=== PATIENT | female | born 1960 | race Caucasian/White ===

== ENCOUNTER 2022-07-11 18:10 | Emergency (ER) | payer MEDICAID, SELFPAY ==
[2022-07-11 18:12] VITALS: BP 140/61; PULSE 83; RESP 20; TEMP 37.2; O2SAT 95; BMI 51.7
--- NOTE | 2022-07-11 18:46 | EX.ED.DYSGE1 ---
HPI History of Present Illness Chief Complaint: Abn Labs Narrative Narrative: 61-year-old female presenting with abnormal lab work. She states that she was told her potassium is high today. This was from a lab draw this morning. The nurse practitioner caring for her could not recheck her labs today because she is in a retirement. She does not know if the labs were hemolyzed or not. Patient has no symptoms at all. [facility] Medical History History of mental problems Tonsillectomy planned Home Medications acetaminophen 325 mg capsule 325 mg PO ONCE PRN Pain 05/29/22 [History Last Taken Unknown] cetirizine 5 mg tablet (Allergy Relief (cetirizine)) 5 mg PO DAILY PRN Allergy Symptoms 05/29/22 [History Last Taken Unknown] clotrimazole 1 % topical cream 1 applic topical BID 05/29/22 [History Last Taken Unknown] diclofenac sodium 1 % topical gel (Arthritis Pain (diclofenac)) 2 g topical ONCE 05/29/22 [History Last Taken Unknown] divalproex 125 mg tablet,delayed release 125 mg PO TID 05/29/22 [History Last Taken Unknown] doxepin 10 mg capsule 10 mg PO DAILY 05/29/22 [History Last Taken Unknown] ergocalciferol (vitamin D2) 50,000 unit tablet unit PO 05/29/22 [History Last Taken Unknown] famotidine 20 mg tablet 20 mg PO DAILY 05/29/22 [History Last Taken Unknown] flash glucose scanning reader (FreeStyle Jolie 2 [employer]ckenna) #1 ea 05/29/22 [Rx Last Taken Unknown] flash glucose sensor (FreeStyle Jolie 2 Sensor kit) #2 ea 05/29/22 [Rx Last Taken Unknown] gabapentin 300 mg capsule 300 mg PO DAILY 05/29/22 [History Last Taken Unknown] hydroxyzine HCl 25 mg tablet 25 mg PO TID PRN Anxiety 05/29/22 [History Last Taken Unknown] insulin glargine 100 unit/mL subcutaneous solution (Lantus U-100 Insulin) 60 unit (0.6 mL) subcut DAILY #54 mL 05/29/22 [Rx Last Taken Unknown] insulin lispro 100 unit/mL subcutaneous pen 20 unit (0.2 mL) subcut TID #54 mL 05/29/22 [Rx Last Taken Unknown] losartan 25 mg tablet 25 mg PO DAILY #90 tabs 05/29/22 [Rx Last Taken Unknown] olanzapine 20 mg tablet 20 mg PO DAILY 05/29/22 [History Last Taken Unknown] omeprazole 20 mg capsule,delayed release 20 mg PO DAILY 05/29/22 [History Last Taken Unknown] sertraline 25 mg tablet 25 mg PO DAILY 05/29/22 [History Last Taken Unknown] simvastatin 20 mg tablet 20 mg PO DAILY 05/29/22 [History Last Taken Unknown] ziprasidone HCl 80 mg capsule 80 mg PO BID 05/29/22 [History Last Taken Unknown] Allergy/AdvReac Type Severity Reaction Status Date / Time codeine Allergy Hives Verified 07/11/22 18:18 prochlorperazine edisylate Allergy Swelling Verified 07/11/22 18:18 [From Compazine] prochlorperazine maleate Allergy Swelling Verified 07/11/22 18:18 [From Compazine] Family History Other Alcohol abuse Cancer Heart disease Hypertension Mental disorder Social History Smoking Status: Never smoker alcohol intake: never substance use type: does not use what type of physical activity do you participate in: none ROS ROS ED Constitutional Constitutional ED: Denies chills, fever(s) or sweats Eyes Eyes: Denies blurry vision or change in vision ENT ENT ED: Denies ear pain or sore throat Cardiovascular Cardiovascular: Denies chest pain, palpitations or racing heartbeat Respiratory/Chest Respiratory/Chest: Denies cough, dyspnea or sputum Gastrointestinal Gastrointestinal: Denies abdominal pain, constipation, diarrhea, nausea or vomiting Genitourinary Genitourinary ED: Denies dysuria, hematuria or urinary frequency Musculoskeletal Musculoskeletal: Denies arthralgias, myalgias or neck pain Integumentary Denies abscess, Abrasions or rash Neurologic Neurologic: Denies headache(s), paresthesias or weakness Psychiatric Psychiatric: Denies anxiety, depression, suicidal ideation or suicidal thoughts Endocrine Endocrinology: Denies polydipsia or polyuria EXAM Physical Exam Const Vital Signs: 07/11/22 18:12 07/11/22 18:18 07/11/22 20:44 Temperature 98.9 F Temperature Source Temporal Pulse Rate 83 92 Respiratory Rate 20 H 22 H Respiratory Effort Normal Non-Labored Respiratory Pattern Normal Blood Pressure 140/61 H 125/112 H Blood Pressure Mean 87 116 Pulse Ox 95 92 Oxygen Delivery Method Room Air Room Air 07/11/22 21:32 Temperature Temperature Source Pulse Rate 82 Respiratory Rate 21 H Respiratory Effort Respiratory Pattern Blood Pressure 128/71 H Blood Pressure Mean 90 Pulse Ox 92 Oxygen Delivery Method Room Air Positive well nourished General Appearance ED: NAD; Negative for pallor HEENT Reports moist mucous membranes Eyes PERRL and EOMs intact bilaterally Neck no lymphadenopathy Resp normal respiratory effort and clear to auscultation bilaterally Auscultation: Negative for rales, rhonchi or wheezes Cardio regular rate and regular rhythm GI normal to inspection, nondistended, normoactive bowel sounds Back/Spine no CVA tenderness Neuro oriented x3 and CN's II-XII intact bilaterally Sensorium / Orientation: alert Motor Exam: strength 5/5 throughout Psych mental status grossly normal Skin no rashes or lesions noted, no wounds and skin turgor normal General Skin Exam: Negative for jaundice or pallor MDM MDM MDM Narrative Medical decision making narrative: Patient presenting asymptomatic stating that her potassium is elevated. She cannot tell me if her labs are hemolyzed. I obtained another BMP to see if her calcium was actually high and came back at 7.0. Creatinine is slightly elevated at 1.68. Her outpatient blood work shows that her creatinine today was 1.6 as well. Previously a couple of months ago was 1.3. Patient is able to relate to me that she does have high potassium at times. She does not know why they keep having elevated potassiums. Patient was given a liter of IV fluids. Patient CBC to check for hemoglobin, hematocrit, differential. Will obtain a urinalysis as well. Urinalysis showed no evidence of infection. Patient's potassium is elevated at 7.0 however there is reported moderate hemolysis. We will recheck her potassium after IV fluids patient had a lab draw again which was moderately hemolyzed and her potassium was still elevated. A straight stick was used and blood was sent to lab and her potassium is now normal at 4.8. Given this I will discharge her back to her facility. Impression 1. Hyperkalemia?resolved 2. Dehydration Lab Data Labs: Laboratory Results - last 24 hr 02/08/0107/11/22 07/11/22 18:30 19:50 19:50 WBC 8.4 RBC 4.52 Hgb 11.5 L Hct 36.7 L MCV 81.2 MCH 25.4 L MCHC 31.3 L RDW Std Deviation 45.3 H RDW Coeff of Doris 15.5 H Plt Count 175 MPV 9.4 Immature Gran % (Auto) 0.400 Neut % (Auto) 42.1 L Lymph % (Auto) 47.7 H [place] % (Auto) 7.0 Eos % (Auto) 2.3 Baso % (Auto) 0.5 Absolute Neuts (auto) 3.5 Absolute Lymphs (auto) 3.99 Nucleated RBC % 0 Sodium 135 L Potassium 7.0 H* Chloride 102 Carbon Dioxide 28.0 Anion Gap 5 BUN 32 H Creatinine 1.68 H Estim Creat Clear Calc 66.14 Est GFR (MDRD) Af Amer 40 L Est GFR (MDRD) Non-Af 33 L BUN/Creatinine Ratio 19.0 Glucose 185 H Calcium 8.9 Urine Color Urine Clarity Urine pH Ur Specific [place] Urine Protein Urine Glucose (UA) Urine Ketones Urine Occult Blood Urine Nitrite Urine Bilirubin Urine Urobilinogen Ur Leukocyte Esterase Urine RBC Urine WBC Ur Squamous Epith Cells Urine Bacteria Urine Mucus Valproic Acid 17 L 07/11/22 07/11/22 07/11/22 20:15 22:35 23:05 WBC RBC Hgb Hct MCV MCH MCHC RDW Std Deviation RDW Coeff of Doris Plt Count MPV Immature Gran % (Auto) Neut % (Auto) Lymph % (Auto) [place] % (Auto) Eos % (Auto) Baso % (Auto) Absolute Neuts (auto) Absolute Lymphs (auto) Nucleated RBC % Sodium Potassium 7.1 H* 4.8 Chloride Carbon Dioxide Anion Gap BUN Creatinine Estim Creat Clear Calc Est GFR (MDRD) Af Amer Est GFR (MDRD) Non-Af BUN/Creatinine Ratio Glucose Calcium Urine Color Yellow Urine Clarity Clear Urine pH 6.5 Ur Specific [place] 1.010 Urine Protein 500 H Urine Glucose (UA) Normal Urine Ketones Negative Urine Occult Blood 10 H Urine Nitrite Negative Urine Bilirubin Negative Urine Urobilinogen Normal Ur Leukocyte Esterase 25 H Urine RBC 0-5 SEEN Urine WBC 0-5 SEEN Ur Squamous Epith Cells 0-5 SEEN Urine Bacteria 1+ Urine Mucus 0 SEEN Valproic Acid Discharge Plan Triage Chief Complaint: Abn Labs ED Provider: Reginald Puentes Dx/Rx/DC Orders Prescriptions: No Action simvastatin 20 mg tablet 20 mg PO DAILY gabapentin 300 mg capsule 300 mg PO DAILY clotrimazole 1 % cream 1 applic topical BID diclofenac sodium [Arthritis Pain (diclofenac)] 1 % gel 2 g topical ONCE Rx Instructions: apply to single elbow, wrist or hand; for hand includes palm/fingers/back of hand cetirizine [Allergy Relief (cetirizine)] 5 mg tablet 5 mg PO DAILY PRN (Reason: Allergy Symptoms) acetaminophen 325 mg capsule 325 mg PO ONCE PRN (Reason: Pain) famotidine 20 mg tablet 20 mg PO DAILY hydroxyzine HCl 25 mg tablet 25 mg PO TID PRN (Reason: Anxiety) divalproex 125 mg tablet,delayed release (DR/EC) 125 mg PO TID olanzapine 20 mg tablet 20 mg PO DAILY Rx Instructions: 1/2 tab once a day PO sertraline 25 mg tablet 25 mg PO DAILY ergocalciferol (vitamin D2) 50,000 unit tablet PO ziprasidone HCl 80 mg capsule 80 mg PO BID Rx Instructions: give with food (meal/snack) doxepin 10 mg capsule 10 mg PO DAILY omeprazole 20 mg capsule,delayed release(DR/EC) 20 mg PO DAILY (DME) FreeStyle Jolie 2 Mckenna Misc See Rx Instructions .Route Qty: 1 0RF Rx Instructions: As directed (DME) FreeStyle Jolie 2 Sensor Kit See Rx Instructions .Route Qty: 2 5RF Rx Instructions: 1 sensor q 14 days losartan 25 mg tablet 25 mg PO DAILY Qty: 90 1RF insulin lispro 100 unit/mL insulin pen 20 unit subcut TID Qty: 54 1RF insulin glargine [Lantus U-100 Insulin] 100 unit/mL solution 60 unit subcut DAILY Qty: 54 1RF Primary Care Provider: Yas Valdivia,Out of Referrals: Yas Valdivia,Out of [Primary Care Provider] -
[2022-07-11 19:34] LABS: Anion Gap 5 (5-15); BUN 32 mg/dL (7-18); Calcium,Total 8.9 mg/dL (8.5-10.1); Chloride 102 mmol/L (98-107); Creatinine, Serum 1.68 mg/dL (0.55-1.02); EST Glomerular Filtration Rate 33 mL/min (>60); Est Glom Filt Rate - Afr Amer 40 mL/min (>60); Estimated Creatinine Clearance 66.14 ml/min; Glucose 185 mg/dL (74-106); Sodium Level 135 mmol/L (136-145)
[2022-07-11] MEDS: 0.9% Normal Saline 1,000 ML 999 ML IV (19:46)
[2022-07-11 20:01] LABS: Absolute Lymphocyte Count 3.99 X10^3/uL (0.83-4.51); Absolute Neutrophil Count 3.5 X10^3/uL (2.0-7.7); Basophil# 0.04 X10^3/uL; Basophil% 0.5 % (0-1); Eosinophil# 0.19 X10^3/uL; Eosinophils% 2.3 % (0-5); Hematocrit 36.7 % (37-47); Hemoglobin 11.5 g/dL (12.0-15.0); Lymphocyte # 3.99 X10^3/ul (0.83-4.51); Lymphocyte % 47.7 % (19-41); Mean Corp Hgb Conc 31.3 g/dL (32-36); Mean Corpuscular Hgb 25.4 pg (27.0-32.0); Mean Corpuscular Volume 81.2 fL (81-99); Mean Platelet Vol. 9.4 fl (6.2-12.0); Monocyte# 0.59 X10^3/uL; NRBC Flagged by Analyzer 0 % (0-5); Neutrophil # 3.53 X10^3/uL (2.7-7.7); Neutrophil % 42.1 % (47-70); Platelet Count 175 K/mm3 (150-450); RBC Distribution Width CV 15.5 % (11.6-14.6); RBC Distribution Width SD 45.3 fl (35.1-43.9); Red Blood Count 4.52 M/mm3 (4.2-5.4); White Blood Count 8.4 K/mm3 (4.4-11.0)
[2022-07-11 20:19] LABS: Mucous, Urine 0 SEEN /hpf (<or=2+)
[2022-07-11 20:20] LABS: Color, Urine Yellow (Yellow); Glucose, Dipstick Normal (Normal); Ketone-Dipstick Negative (Negative); Leukocyte Esterase-Dipstick 25 /ul (Negative); Nitrite-Dipstick Negative (Negative); Occult Blood-Urine 10 /ul (Negative); Protein-Dipstick 500 mg/dl (Negative); Urine Bilirubin Dipstick Negative (Negative); Urine Clarity Clear (Clear); Urine Urobilinogen Normal (Normal); Urine pH 6.5 (5.0 - 8.0)
[2022-07-11 20:26] LABS: Bacteria 1+ /hpf (None Seen); Red Blood Cells-Urine 0-5 SEEN /hpf (0-5); Squamous Epithelial Cells - UA 0-5 SEEN /hpf (5-10); White Blood Cells 0-5 SEEN /hpf (0-5)
[2022-07-11 20:44] VITALS: BP 125/112; PULSE 92; RESP 22; O2SAT 92
--- NOTE | 2022-07-11 20:46 | ED.RN ---
PER DR. HOLLAND, WAIT TO DRAW REPEAT POTASSIUM UNTIL AFTER LITER OF FLUIDS.
[2022-07-11 21:19] LABS: Valproic Acid (Depakene) Level 17 ug/mL (50-100)
[2022-07-11 21:32] VITALS: BP 128/71; PULSE 82; RESP 21; O2SAT 92
[2022-07-11 22:58] LABS: Potassium 7.1 mmol/L (3.5-5.1)
[2022-07-11 23:30] LABS: Potassium 4.8 mmol/L (3.5-5.1)
[2022-07-11 23:58] VITALS: BP 132/64; PULSE 75; RESP 18; O2SAT 97
== END 2022-07-12 00:56 | disposition skilled nursing facility (03) ==
LOC: ED 18:39
PROVIDERS: Emergency Provider Student in an Organized Health Care Education/Training Program; Visit Provider Student in an Organized Health Care Education/Training Program
DX: R79.0 Abnormal level of blood mineral (principal); E86.0 Dehydration
CPT/HCPCS: 80048; 80164; 81001; 84132; 85025; 96360; 96361; 99285; J7030; A4216

== ENCOUNTER → 2022-08-21 | Outpatient (CLI) | payer MEDICAID, SELFPAY ==
--- NOTE | 2022-08-21 13:18 | US_ITS ---
STUDY: RENAL ULTRASOUND - COMPLETE REASON FOR EXAM: Female, 62 years old. Elevated BUN/creatinine TECHNIQUE: Ultrasound evaluation of the kidneys was performed with real-time and static quispe-scale imaging. Study limited due to having being scanned in her wheelchair COMPARISON: None. FINDINGS: Kidneys demonstrate echogenic cortices suggesting underlying medical renal disease RIGHT KIDNEY: Normal location of the right kidney, which is normal in size. The right kidney measures 9.9 x 5.1 x 5.7 cm. There is a normal cortex of the right kidney. The renal cortex measures 1.6 cm. There is no right renal mass or cyst. There are no right renal calculi. There is no right hydronephrosis. DISTAL RIGHT URETER: There is non-visualization of the distal right ureter. There is no demonstrated right ureterovesical junction calculus. There is a visualized right ureteral jet. LEFT KIDNEY: Normal location of the left kidney, which is normal in size. The left kidney measures 9.8 x 4.2 x 5.5 cm. There is a normal cortex of the left kidney. The renal cortex measures 1.7 cm. There is no left renal mass or cyst. There are no left renal calculi. There is no left hydronephrosis. DISTAL LEFT URETER: There is non-visualization of the distal left ureter. There is no demonstrated left ureterovesical junction calculus. There is a visualized left ureteral jet. AORTA: There is no elongation or tortuosity of the abdominal aorta. I.V.C.: The IVC is patent. BLADDER: The bladder is incompletely distended and incompletely visualized. Incidental note is made of splenomegaly measuring 14 cm. US/Kidney and Bladder IMPRESSION: Echogenic kidneys suggesting underlying medical renal disease. No obstructive uropathy or suspicious solid renal lesion. Nonspecific splenomegaly Electronically Signed: Orlin Mills MD at 14:52 EDT ,
== END | disposition home or self-care (01) ==
LOC: US 13:16
PROVIDERS: PCP Internal Medicine; Referring Provider Urology; Visit Provider Urology
DX: N99.0 Postprocedural (acute) (chronic) kidney failure (principal)
CPT/HCPCS: 76770

== ENCOUNTER 2022-08-28 11:07 | Inpatient (IN) | payer MEDICAID, SELFPAY ==
[2022-08-28] VITALS (16 sets, daily range): BP systolic 118–147; BP diastolic 77–102; PULSE 90–102; RESP 12–31; TEMP 36.7–37; O2SAT 84–98; BMI 54.0; BMI 52.8
--- NOTE | 2022-08-28 12:07 | ED.VIS.DYS ---
HPI History of Present Illness Chief Complaint: Shortness of Breath Narrative Narrative: 62-year-old female here with shortness of breath. The patient states there is associated bilateral lower extremity swelling. States ongoing for 2 days. She further states she has orthopnea. Denies cough fever chills. Denies any bleeding diathesis. Denies any chest pain. The patient denies recent surgery in the last 4 weeks or immobilization in the last 3 days, denies previous diagnosis of DVT or PE, hemoptysis, unilateral leg swelling or malignancy with treatment the last 6 months. No estrogen use noted. [facility] Medical History History of mental problems Tonsillectomy planned Home Medications divalproex 125 mg tablet,delayed release 125 mg PO BID 05/29/22 [History Last Taken 08/27/22] doxepin 10 mg capsule 10 mg PO DAILY SLEEP 05/29/22 [History Last Taken 08/27/22] flash glucose scanning reader ([employer] Jolie [employer]) #1 ea 05/29/22 [Rx Last Taken Unknown] flash glucose sensor (FreeStyle Jolie 2 Sensor kit) #2 ea 05/29/22 [Rx Last Taken Unknown] gabapentin 300 mg capsule 300 mg PO DAILY 05/29/22 [History Last Taken 08/27/22] hydroxyzine HCl 25 mg tablet 25 mg PO TID PRN Anxiety 05/29/22 [History Last Taken 08/27/22] omeprazole 20 mg capsule,delayed release 20 mg PO DAILY GERD 05/29/22 [History Last Taken 08/27/22] sertraline 25 mg tablet 25 mg PO DAILY MOOD 05/29/22 [History Last Taken 08/27/22] simvastatin 20 mg tablet 20 mg PO QHS CHOLESTEROL 05/29/22 [History Last Taken 08/27/22] ziprasidone HCl 80 mg capsule 80 mg PO QHS MOOD 05/29/22 [History Last Taken 08/27/22] amlodipine 5 mg tablet 5 mg PO DAILY #30 tabs 07/15/22 [Rx Last Taken 08/27/22] acetaminophen 325 mg tablet 650 mg PO BID PRN PAIN AND FEVER 08/28/22 [History Last Taken 08/27/22] ergocalciferol (vitamin D2) 1,250 mcg (50,000 unit) capsule ([place]) 1,250 mcg PO MOTH SUPPLEMENT 08/28/22 [History Last Taken 08/19/22] insulin glargine 100 unit/mL subcutaneous solution (Lantus U-100 Insulin) 60 unit subcut QHS DM 08/28/22 [History Last Taken 08/27/22] insulin lispro 100 unit/mL subcutaneous pen 20 unit subcut TID DM 08/28/22 [History Last Taken 08/27/22] mirabegron 50 mg tablet,extended release 24 hr (Myrbetriq) 100 mg PO DAILY BLADDER 08/28/22 [History Last Taken 08/27/22] nystatin 100,000 unit/gram topical powder (Nystop) 1 applic topical BID SKIN 08/28/22 [History Last Taken Unknown] olanzapine 10 mg tablet 10 mg PO QHS MOOD 08/28/22 [History Last Taken 08/27/22] sertraline 100 mg tablet 100 mg PO QHS MOOD 08/28/22 [History Last Taken 08/27/22] Allergy/AdvReac Type Severity Reaction Status Date / Time codeine Allergy Hives Verified 07/11/22 18:18 prochlorperazine edisylate Allergy Swelling Verified 07/11/22 18:18 [From Compazine] prochlorperazine maleate Allergy Swelling Verified 07/11/22 18:18 [From Compazine] Family History Other Alcohol abuse Cancer Heart disease Hypertension Mental disorder Social History Smoking Status: Never smoker alcohol intake: never substance use type: does not use what type of physical activity do you participate in: none ROS ROS ED ROS Narrative Constitutional: Denies fever HEENT: Denies sore throat Neck: Denies neck pain Cardiovascular: Denies chest pain, syncope Respiratory: Endorses shortness of breath GI: Denies nausea vomiting or abdominal pain : Denies changes in urinary habits Musculoskeletal: Denies muscle or joint pain, endorses bilateral lower extremity edema Neurologic: Denies numbness weakness or loss of sensation Skin denies rash EXAM Physical Exam Narrative Exam Narrative: Nursing triage notes reviewed, Vital signs reviewed Constitutional: please see mdm HENT: MMM Eyes: Pupils equal round and reactive to light, Extraocular muscles intact Neck: No stridor, no JVD, full neck ROM Lungs: Increased work of breathing, prolonged expiratory phase, accessory muscle use, conversational dyspnea, bilateral wheezing/crackles noted worse on the left Heart: Regular rate and rhythm, No murmurs, No rubs and No gallops, 2+ distal pulses (radial, femoral, posterior tibial) in all extremities Abdomen: Soft, there is no tenderness, rigidity, rebound or guarding, no obvious peritoneal signs, no palpable pulsatile abdominal masses, no auscultated abdominal bruit : No CVAT Extremities: 2+ pitting edema Neuro: No focal neurological deficits, cranial nerves II through XII intact, 5/5 strength in all extremities. Intact sensation to light touch in all extremities, 2+ reflexes bilateral patella dens. Normal gait. No ataxia. Skin: No rash or lesions noted Const Vital Signs: 08/28/22 11:09 08/28/22 11:12 08/28/22 11:13 Temperature 98.6 F Temperature Source Oral Pulse Rate 102 H Respiratory Rate 26 H Respiratory Effort Short of Breath Labored Respiratory Depth Deep Respiratory Pattern Tachypnea Blood Pressure 138/77 H Blood Pressure Mean 97 Pulse Ox 84 94 Oxygen Delivery Method Room Air Nasal Cannula Nasal Cannula Oxygen Flow Rate (L/min) 3 3 Fraction of Inspired Oxygen (FIO2) 08/28/22 13:24 08/28/22 13:28 08/28/22 13:51 Temperature 98.4 F Temperature Source Oral Pulse Rate 101 H 100 99 Respiratory Rate 19 H 24 H 24 H Respiratory Effort Respiratory Depth Respiratory Pattern Normal Blood Pressure 147/102 H Blood Pressure Mean 117 Pulse Ox 92 92 Oxygen Delivery Method Nasal Cannula Oxygen Flow Rate (L/min) 3 Fraction of Inspired Oxygen (FIO2) 40 08/28/22 15:06 Temperature 98.5 F Temperature Source Temporal Pulse Rate 99 Respiratory Rate 21 H Respiratory Effort Respiratory Depth Respiratory Pattern Blood Pressure 136/87 H Blood Pressure Mean 103 Pulse Ox 94 Oxygen Delivery Method Bi-pap Oxygen Flow Rate (L/min) Fraction of Inspired Oxygen (FIO2) 40 MDM MDM MDM Narrative Medical decision making narrative: Chief Complaint: Shortness of breath External records reviewed: I considered the following differential diagnosis: ACS, arrhythmia, anemia, heart failure, pneumonia, COVID, COPD exacerbation Patient was initially hypoxic, tachycardic with increased work of breathing, conversational dyspnea, belly breathing/muscle use. Lungs were tight with prolonged expiratory phase concerning for obstructive lung disease however the patient did not have history of COPD or asthma did have a remote history of smoking. She was treated empirically for COPD with steroids and DuoNeb breathing treatments. Chest x-ray by my read shows evidence of pneumonia, BNP consistent with mild heart failure. There is no evidence of STEMI on EKG however the patient's troponin was elevated concern for myocardial ischemia. Patient's BNP is also elevated concerning for heart failure may be related to increased ventricular stretch given initial tachycardia and hypoxia. Patient was started on BiPAP given increased work of breathing, tachypnea and new onset hypoxia. She improved symptomatically. Patient was started on azithromycin and ceftriaxone for antimicrobial effect. Report given to Dr. Faustin who accepted the patient's care Factors affecting care: Obesity, hypertension, hyperlipidemia, type 2 diabetes, CKD Social determinants of health: Poor health literacy, History obtained from others: EMS Shared decision making: I will have a discussion with the patient and or visitors regarding risk/benefits of further testing or admission. They will be made aware of of the risk/benefits inherent in this decision they will be given the opportunity to voice understanding. Consults: Internal medicine History & Record Review Discussion w/independent historian: EMS personnel Lab Data Attestation: I reviewed the patient's lab results. Lab results narrative: Troponin elevated consistent myocardial schema BNP elevated consistent with heart failure BMP with baseline CKD, no significant electrolyte abnormalities or anion gap to suggest endorgan hypoperfusion CBC with no leukocytosis, mild anemia, no thrombocytopenia Labs: Laboratory Results - last 24 hr 08/28/22 08/28/22 08/28/22 11:40 11:40 14:40 WBC 9.6 RBC 4.07 L Hgb 10.5 L Hct 33.7 L MCV 82.8 MCH 25.8 L MCHC 31.2 L RDW Std Deviation 49.6 H RDW Coeff of Doris 16.6 H Plt Count 198 MPV 8.7 Sodium 138 Potassium 4.7 Chloride 102 Carbon Dioxide 29.0 Anion Gap 7 BUN 33 H Creatinine 1.66 H Estim Creat Clear Calc 69.07 Est GFR (MDRD) Af Amer 41 L Est GFR (MDRD) Non-Af 34 L BUN/Creatinine Ratio 19.9 Glucose 172 H Calcium 9.1 Troponin I High Sens 76 H B-Natriuretic Peptide 515.2 H ABG Data ABG results: ABG 08/28/22 13:39 Specimen Type LEROY VBG pH 7.36 VBG pO2 31 VBG HCO3 32 H VBG Total CO2 34 H VBG O2 Sat (Calc) 56 VBG Base Excess 7 H POC Mix VBG pCO2 Pt Tmp 57.7 H Radiography Chest X-Ray - ED: Read by ED Physician Diagnostic Testing: Clinical Impression(s) from Imaging Studies Chest X-Ray 08/28/22 13:50 IMPRESSION: Left basilar pulmonary infiltrate. Follow-up is recommended. Electronically Signed: Man Kauffman MD at 14:23 EDT , Chest x-ray with evidence of left-sided pneumonia EKG Initial EKG: Attestation: I personally reviewed and interpreted this EKG as follows: Comments: EKG with normal sinus rhythm, normal axis, normal intervals, no STEMI Critical Care Time Critical Care Time: Yes Critical care time (excluding procedures): 30-74 minutes Discharge Plan Triage Chief Complaint: Shortness of Breath ED Provider: Jamal Gayle Dx/Rx/DC Orders Clinical Impression: Pneumonia, Acute hypoxemic respiratory failure, Acute non-ST elevation myocardial infarction (NSTEMI) Prescriptions: No Action simvastatin 20 mg tablet 20 mg PO QHS gabapentin 300 mg capsule 300 mg PO DAILY hydroxyzine HCl 25 mg tablet 25 mg PO TID PRN (Reason: Anxiety) divalproex 125 mg tablet,delayed release (DR/EC) 125 mg PO BID sertraline 25 mg tablet 25 mg PO DAILY ziprasidone HCl 80 mg capsule 80 mg PO QHS Rx Instructions: give with food (meal/snack) doxepin 10 mg capsule 10 mg PO DAILY omeprazole 20 mg capsule,delayed release(DR/EC) 20 mg PO DAILY (DME) FreeStyle Jolie [employer] Misc See Rx Instructions .Route Qty: 1 0RF Rx Instructions: As directed (DME) FreeStyle Jolie 2 Sensor Kit See Rx Instructions .Route Qty: 2 5RF Rx Instructions: 1 sensor q 14 days nystatin [Nystop] 100,000 unit/gram Powder 1 applic TOPICAL BID acetaminophen 325 mg tablet 650 mg PO BID PRN (Reason: PAIN AND FEVER) sertraline 100 mg tablet 100 mg PO QHS olanzapine 10 mg tablet 10 mg PO QHS ergocalciferol (vitamin D2) [Drisdol] 1,250 mcg (50,000 unit) Capsule 1,250 mcg PO MOTH Myrbetriq 50 mg Tablet Extended Release 24 Hr 100 mg PO DAILY insulin glargine [Lantus U-100 Insulin] 100 unit/mL solution 60 unit subcut QHS insulin lispro 100 unit/mL insulin pen 20 unit subcut TID amlodipine 5 mg tablet 5 mg PO DAILY Qty: 30 6RF Primary Care Provider: CURTIS LEVI Referrals: Nini Rubi MD [Non-Staff] - Disposition Disposition: Acute Care Hospital [facility]
[2022-08-28] MEDS: Ipratropium/Albuterol Sulfate 3 ML AMPUL.NEB INHALATION (13:27)
[2022-08-28] MEDS: MethylPREDNISolone 125 MG/2 ML Vial IV (13:31)
[2022-08-28 13:45] LABS: Blood Gas Specimen Type VEN; VBG BASE EXCESS 7 mmol/L (-1.0-3.5); VBG Bicarbonate 32 mmol/L (22-26); VBG PO2 31 mmHg (25-40); VBG SO2 56 % (50-70); VBG TCO2 34 mmol/L (23-33); VBG pCO2 57.7 mmHg (41-51); VBG pH 7.36 (7.32-7.42)
--- NOTE | 2022-08-28 13:50 | RAD_ITS ---
STUDY: X-RAY CHEST REASON FOR EXAM: Female, 62 years old. SOB TECHNIQUE: Single AP portable view of the chest. COMPARISON: None. FINDINGS: EKG electrodes are seen. Infiltrate is seen at the left lung base. Follow-up is recommended. There is no demonstrated pleural abnormality. There is borderline cardiomegaly. Normal mediastinum and belem. Normal visualized pulmonary arteries. Normal visualized aortic arch and descending thoracic aorta. Normal visualized thoracic spine. Normal visualized ribs, clavicles, and shoulders. There is no demonstrated abnormality of the visualized soft tissue structures of the upper abdomen. RAD/Chest 1 View (Portable) IMPRESSION: Left basilar pulmonary infiltrate. Follow-up is recommended. Electronically Signed: Man Kauffman MD at 14:23 EDT ,
[2022-08-28 13:51] LABS: BNP,B-Type NATRIURETIC PEPTIDE 515.2 pg/mL (0-100)
[2022-08-28 13:54] LABS: Anion Gap 7 (5-15); BUN 33 mg/dL (7-18); BUN/Creat Ratio 19.9 RATIO (10-20); Calcium,Total 9.1 mg/dL (8.5-10.1); Chloride 102 mmol/L (98-107); Creatinine, Serum 1.66 mg/dL (0.55-1.02); EST Glomerular Filtration Rate 34 mL/min (>60); Est Glom Filt Rate - Afr Amer 41 mL/min (>60); Estimated Creatinine Clearance 69.07 ml/min; Glucose 172 mg/dL (74-106); Potassium 4.7 mmol/L (3.5-5.1); Sodium Level 138 mmol/L (136-145); Troponin-I HS 76 pg/mL (3.0-54.0)
[2022-08-28 14:55] LABS: Hematocrit 33.7 % (37-47); Hemoglobin 10.5 g/dL (12.0-15.0); Mean Corp Hgb Conc 31.2 g/dL (32-36); Mean Corpuscular Hgb 25.8 pg (27.0-32.0); Mean Corpuscular Volume 82.8 fL (81-99); Mean Platelet Vol. 8.7 fl (6.2-12.0); Platelet Count 198 K/mm3 (150-450); RBC Distribution Width CV 16.6 % (11.6-14.6); RBC Distribution Width SD 49.6 fl (35.1-43.9); Red Blood Count 4.07 M/mm3 (4.2-5.4); White Blood Count 9.6 K/mm3 (4.4-11.0)
[2022-08-28] MEDS: Ceftriaxone 1 GM/50 ML BAG IV (15:04)
--- NOTE | 2022-08-28 15:50 | NURSING ---
PER [facility] RECORDS PT HAS NOT RECEIVED FLU VACCINE. CURRENTLY UNABL TO CONSENT/REFUSE VACC, PLEASE REASSESS WHEN SHE IS ABLE TO RESPOND TO QUESTIONS.
--- NOTE | 2022-08-28 16:20 | NURSING ---
PER DR MARIE, PLEASE ADMINISTER THE 20MG OF LASIX ORDERED BY DR LEGGETT
--- NOTE | 2022-08-28 16:37 | CPS ---
Switched pt to [facility] at this time. RN aware
[2022-08-28] MEDS: 0.9% Saline Lock 10 ML Syringe IV (16:54)
[2022-08-28] MEDS: Furosemide 20 MG/2 ML VIAL IV (16:55)
--- NOTE | 2022-08-28 18:29 | PCM.HP.STD ---
HPI - General General Date of Admission: 08/28/22 HPI Narrative KELSI JENSEN, is a 62 F who presents to the hospital with shortness of breath. During my exam she was fairly somnolent and would not wake up long enough to answer my questions. I could not reach family so most of the history was obtained from chart review and discussing the case with the emergency room physician. She has noticed lower extremity edema and on admission was hypoxic to 84% on room air. Initially she was started on nasal cannula but she did have significant increased work of breathing with retractions and tachypnea so she was transitioned to BiPAP in the ER. VBG was unremarkable. Chest x-ray shows left lower lobe opacity could be infiltrates could be edema, she does not have a leukocytosis and she is not febrile. Lab work was fairly unremarkable, her creatinine is at baseline based on the previous records we have, she did have a slightly elevated BNP but no history of heart failure or COPD. [facility]LY [facility] Medical History History of mental problems Tonsillectomy planned Home Medications divalproex 125 mg tablet,delayed release 125 mg PO BID 05/29/22 [History Last Taken 08/27/22] doxepin 10 mg capsule 10 mg PO DAILY SLEEP 05/29/22 [History Last Taken 08/27/22] flash glucose scanning reader (FreeStyle Jolie 2 [place]) #1 ea 05/29/22 [Rx Last Taken Unknown] flash glucose sensor (FreeStyle Jolie 2 Sensor kit) #2 ea 05/29/22 [Rx Last Taken Unknown] gabapentin 300 mg capsule 300 mg PO DAILY 05/29/22 [History Last Taken 08/27/22] hydroxyzine HCl 25 mg tablet 25 mg PO TID PRN Anxiety 05/29/22 [History Last Taken 08/27/22] omeprazole 20 mg capsule,delayed release 20 mg PO DAILY GERD 05/29/22 [History Last Taken 08/27/22] sertraline 25 mg tablet 25 mg PO DAILY MOOD 05/29/22 [History Last Taken 08/27/22] simvastatin 20 mg tablet 20 mg PO QHS CHOLESTEROL 05/29/22 [History Last Taken 08/27/22] ziprasidone HCl 80 mg capsule 80 mg PO QHS MOOD 05/29/22 [History Last Taken 08/27/22] amlodipine 5 mg tablet 5 mg PO DAILY #30 tabs 07/15/22 [Rx Last Taken 08/27/22] acetaminophen 325 mg tablet 650 mg PO BID PRN PAIN AND FEVER 08/28/22 [History Last Taken 08/27/22] ergocalciferol (vitamin D2) 1,250 mcg (50,000 unit) capsule (Drisdol) 1,250 mcg PO MOTH SUPPLEMENT 08/28/22 [History Last Taken 08/19/22] insulin glargine 100 unit/mL subcutaneous solution (Lantus U-100 Insulin) 60 unit subcut QHS DM 08/28/22 [History Last Taken 08/27/22] insulin lispro 100 unit/mL subcutaneous pen 20 unit subcut TID DM 08/28/22 [History Last Taken 08/27/22] mirabegron 50 mg tablet,extended release 24 hr (Myrbetriq) 100 mg PO DAILY BLADDER 08/28/22 [History Last Taken 08/27/22] nystatin 100,000 unit/gram topical powder (Nystop) 1 applic topical BID SKIN 08/28/22 [History Last Taken Unknown] olanzapine 10 mg tablet 10 mg PO QHS MOOD 08/28/22 [History Last Taken 08/27/22] sertraline 100 mg tablet 100 mg PO QHS MOOD 08/28/22 [History Last Taken 08/27/22] Allergy/AdvReac Type Severity Reaction Status Date / Time codeine Allergy Hives Verified 07/11/22 18:18 prochlorperazine edisylate Allergy Swelling Verified 07/11/22 18:18 [From Compazine] prochlorperazine maleate Allergy Swelling Verified 07/11/22 18:18 [From Compazine] Family History Other Alcohol abuse Cancer Heart disease Hypertension Mental disorder Surgical History unable to obtain unable to obtain Social History Smoking Status: Never smoker alcohol intake: never substance use type: does not use what type of physical activity do you participate in: none ROS Review of Systems ROS Unobtainable: due to mental status Vital Signs Vital Signs Vital Signs: 08/28/22 11:09 08/28/22 11:12 08/28/22 11:13 Temperature 98.6 F Temperature Source Oral Pulse Rate 102 H Respiratory Rate 26 H Respiratory Effort Short of Breath Labored Respiratory Depth Deep Respiratory Pattern Tachypnea Blood Pressure 138/77 H Blood Pressure Mean 97 Blood Pressure Source Blood Pressure Position Blood Pressure Location Pulse Ox 84 94 Oxygen Delivery Method Room Air Nasal Cannula Nasal Cannula Oxygen Flow Rate (L/min) 3 3 Fraction of Inspired Oxygen (FIO2) 08/28/22 13:24 08/28/22 13:28 08/28/22 13:51 Temperature 98.4 F Temperature Source Oral Pulse Rate 101 H 100 99 Respiratory Rate 19 H 24 H 24 H Respiratory Effort Respiratory Depth Respiratory Pattern Normal Blood Pressure 147/102 H Blood Pressure Mean 117 Blood Pressure Source Blood Pressure Position Blood Pressure Location Pulse Ox 92 92 Oxygen Delivery Method Nasal Cannula Oxygen Flow Rate (L/min) 3 Fraction of Inspired Oxygen (FIO2) 40 08/28/22 15:06 08/28/22 16:16 08/28/22 16:47 Temperature 98.5 F 98.5 F 98.2 F Temperature Source Temporal Temporal Temporal Pulse Rate 99 99 102 H Respiratory Rate 21 H 21 H 18 Respiratory Effort Respiratory Depth Respiratory Pattern Blood Pressure 136/87 H 136/87 H 118/82 H Blood Pressure Mean 103 103 94 Blood Pressure Source Monitor Blood Pressure Position Semi-Fowlers Blood Pressure Location Right Arm Pulse Ox 94 95 95 Oxygen Delivery Method Bi-pap Bi-pap Bi-pap Oxygen Flow Rate (L/min) Fraction of Inspired Oxygen (FIO2) 40 60 80 08/28/22 15:30 08/28/22 16:31 08/28/22 16:30 Temperature Temperature Source Pulse Rate 90 95 Respiratory Rate 24 H 26 H Respiratory Effort Respiratory Depth Respiratory Pattern Normal Tachypnea Blood Pressure Blood Pressure Mean Blood Pressure Source Blood Pressure Position Blood Pressure Location Pulse Ox 95 96 96 Oxygen Delivery Method Bi-pap Oxygen Flow Rate (L/min) Fraction of Inspired Oxygen (FIO2) 60 80 80 08/28/22 16:47 08/28/22 16:45 Temperature 98.2 F Temperature Source Temporal Pulse Rate 102 H Respiratory Rate 18 Respiratory Effort Respiratory Depth Respiratory Pattern Tachypnea Blood Pressure 118/82 H Blood Pressure Mean 94 Blood Pressure Source Blood Pressure Position Blood Pressure Location Pulse Ox 95 Oxygen Delivery Method Bi-pap Bi-pap Oxygen Flow Rate (L/min) Fraction of Inspired Oxygen (FIO2) Weight Weight: 261 lb 7.492 oz Body Mass Index (BMI) 52.8 Physical Exam Narrative General: Somnolent, mild distress HEENT: Atraumatic, PERRLA, EOMI, Normocephalic Oral: Moist Mucosa Neck: Supple, No JVD Lungs: Diminished, Normal air movement, No rhonchi, No wheeze, No rales, tachypneic, retractions Cardiovascular: Tachycardic, Regular Rhythm, Normal S1, Normal S2, No murmurs Abdomen: Soft, Non Tender, Non-Distended, No Hepato-splenomegaly Extremities: Edema, Capillary Refill Less than 3 Seconds Skin: No rashes, No breakdown Musculoskeletal: No Tenderness to Palpation of Joints or Extremities Neurological: Does not follow commands Psych/Mental Status: Flat Results Lab / Micro Data Result Diagrams: 08/28/22 14:40 08/28/22 11:40 Labs: Laboratory Results - last 24 hr 08/28/22 11:40: Sodium 138, Potassium 4.7, Chloride 102, Carbon Dioxide 29.0, Anion Gap 7, BUN 33 H, Creatinine 1.66 H, Estim Creat Clear Calc 69.07, Est GFR (MDRD) Af Amer 41 L, Est GFR (MDRD) Non-Af 34 L, BUN/Creatinine Ratio 19.9, Glucose 172 H, Calcium 9.1, Troponin I High Sens 76 H 08/28/22 11:40: B-Natriuretic Peptide 515.2 H 08/28/22 14:40: WBC 9.6, RBC 4.07 L, Hgb 10.5 L, Hct 33.7 L, MCV 82.8, MCH 25.8 L, MCHC 31.2 L, RDW Std Deviation 49.6 H, RDW Coeff of Doris 16.6 H, Plt Count 198, MPV 8.7 Micro: Microbiology 08/28/22 13:44 Nasal Secretion SARS-CoV-2 Antigen (Rapid) - Final ABG Data ABG results: ABG 08/28/22 13:39 Specimen Type LEROY VBG pH 7.36 VBG pO2 31 VBG HCO3 32 H VBG Total CO2 34 H VBG O2 Sat (Calc) 56 VBG Base Excess 7 H POC Mix VBG pCO2 Pt Tmp 57.7 H Radiology Impression Chest X-Ray 08/28/22 13:50 IMPRESSION: Left basilar pulmonary infiltrate. Follow-up is recommended. Electronically Signed: Man Kauffman MD at 14:23 EDT , Assessment & Plan Assessment/Plan (1) Acute hypoxemic respiratory failure: PLAN: Plan 1. Acute hypoxic respiratory failure secondary to CHF exacerbation unknown type with metabolic versus toxic encephalopathy ? VBG does not show any significant acidosis or alkalosis or CO2 retention ? With the edema and the orthopnea described to the ED physician as well as a slightly elevated troponin it is reasonable to consider CHF, she received 20 of Lasix this evening in the ER can repeat in the morning ? We will obtain an echo ? I did review the chest x-ray independently and I agree with the radiologist ? Given the lack of a leukocytosis or fever we will hold off on any further antibiotics to allow her to declare herself. She did receive Rocephin and azithromycin in the ER ? No history of COPD, and I do not hear any wheezing on exam therefore we will hold off on any steroids at this time ? She does take multiple medications that could be causing her altered mental status, will hold her olanzapine and her ziprasidone and obtain an ammonia ? We will obtain serial troponins 2. HTN/HLD/elevated troponin ? Unable to ascertain whether not she was having any chest pain ? EKG is unremarkable ? We will obtain serial troponins and an echo for further characterization ? Continue with her Norvasc and simvastatin 3. DM2/CKD 3B ? This is uncontrolled last A1c in 2021 was 9.7 ? We will continue with her long-acting insulin ? Accu-Cheks ACHS with sliding scale insulin ? We will make adjustments as necessary ? Chart review discussed that she has microalbuminemia we will start low-dose lisinopril ? Renal functions at baseline 4. Anxiety/depression versus other mood disorder ? Can continue with her Depakote and her doctor as well as her gabapentin and as needed hydroxyzine but will hold her olanzapine and ziprasidone DVT: Lovenox 76 minutes was spent in direct patient care as well as chart review and collaboration Charges/Coding Visit Charges Inpatient E&M: 96199 Init Hosp L3
--- NOTE | 2022-08-28 19:29 | ECHOCS_ITS ---
Reason For Study: CHF Procedure This was a 2D Doppler, Color Flow transthoracic echocardiogram. The study was technically difficult. Contrast injection was performed. Exam performed portable in patient room. Left Ventricle Normal LV size. The left ventricular ejection fraction is 40 %. Unable to assess diastolic function based on available data. Right Ventricle The right ventricle is not well visualized. Atria The left atrium is not well visualized. The right atrium is not well visualized. Mitral Valve Mitral valve not well visualized. Tricuspid Valve The tricuspid valve is not well visualized. Aortic Valve The aortic valve is not well visualized. Pulmonic Valve The pulmonic valve is not well visualized. Great Vessels The aortic root is not well visualized. Pericardium/Pleural No pericardial effusion. Medication Diluted definity 2ml given slow IV push to enhance endocardial definition. MMode/2D Measurements & Calculations Ao root diam: 2.4 cm LAV(MOD-bp): 74.6 ml LVAd ap4: 34.6 cm2 LAV(MOD-bp) Indexed: 36.6 ml/m2 LVLd ap4: 8.3 cm LAV(MOD-sp2): 41.7 ml EDV(MOD-sp4): 120.8 ml LAV(MOD-sp4): 125.3 ml EDV(sp4-el): 122.5 ml LVAs ap4: 23.7 cm2 LVLs ap4: 7.0 cm ESV(MOD-sp4): 66.1 ml ESV(sp4-el): 68.3 ml EF(MOD-sp4): 45.3 % EF(sp4-el): 44.2 % SV(MOD-sp4): 54.7 ml SV(sp4-el): 54.2 ml LA A4 area: 31.1 cm2 LA dimension(2D): 4.7 cm Doppler Measurements & Calculations MV E max hussein: 119.3 cm/sec Lat Peak E' Hussein: 11.0 cm/sec Med Peak E' Hussein: 7.9 cm/sec MV A max hussein: 91.5 cm/sec E/E' lat: 10.9 E/E' med: 15.0 MV E/A: 1.3 Ao V2 max: 67.3 cm/sec LV V1 max: 61.9 cm/sec Ao max P.8 mmHg LV V1 max P.5 mmHg ECHO/Echo Complete W/ Contrast Interpretation Summary The study was technically difficult. The left ventricular ejection fraction is 40-45 %. Ordering Physician: Tyler Faustin Referring Physician: LOY PCP Performed By: Jennifer Gaspar RCS
[2022-08-28 19:48] LABS: Hemoglobin A1c 7.8 % (3.8-5.6)
[2022-08-28 20:06] LABS: Allen Test Positive; Base Excess 2 mmol/L (-2 to +2); Bicarbonate 26.9 mmol/L (22-26); Blood Gas Specimen Type ART; FI02 70; O2 Delivery Device BiPAP; PEEP 12; PO2 121 mmHG (75-100); RR 14; SITE R Radial; SO2 99 % (95-99); Total Carbon Dioxide 28 mmol/L; Vt 450; pCO2 43.7 mmHg (35-45)
[2022-08-28 22:15] LABS: Troponin-I HS 55 pg/mL (3.0-54.0)
[2022-08-29] VITALS (12 sets, daily range): BP systolic 106–126; BP diastolic 69–90; PULSE 90–98; RESP 16–20; TEMP 36.6–37; O2SAT 94–97; BMI 52.6
[2022-08-29] MEDS: Insulin Lispro 100 UNIT/ML INSULN.PEN SC ×5 (00:02→21:20)
[2022-08-29] MEDS: Divalproex Sodium 125 MG Tablet PO ×3 (00:02→21:20)
[2022-08-29] MEDS: Insulin Glargine-YFGN 100 UNIT/ML Pen 60 UNIT SC ×2 (00:03→21:21)
[2022-08-29] MEDS: Atorvastatin Calcium 10 MG Tablet PO ×2 (00:04→21:21)
[2022-08-29] MEDS: Sertraline 100 MG Tablet PO ×2 (00:13→21:21)
[2022-08-29 00:41] LABS: Bedside Glucose 248 mg/dL (74-106)
[2022-08-29 03:59] LABS: Absolute Lymphocyte Count 0.91 X10^3/uL (0.83-4.51); Absolute Neutrophil Count 4.8 X10^3/uL (2.0-7.7); Hemoglobin 9.8 g/dL (12.0-15.0); Lymphocyte # 0.91 X10^3/ul (0.83-4.51); Lymphocyte % 15.5 % (19-41); Mean Corp Hgb Conc 30.6 g/dL (32-36); Mean Corpuscular Hgb 25.5 pg (27.0-32.0); Mean Corpuscular Volume 83.1 fL (81-99); Monocyte# 0.18 X10^3/uL; Monocyte% 3.1 % (0-10); NRBC Flagged by Analyzer 0 % (0-5); Neutrophil # 4.75 X10^3/uL (2.7-7.7); Neutrophil % 80.7 % (47-70); Platelet Count 175 K/mm3 (150-450); RBC Distribution Width CV 16.6 % (11.6-14.6); RBC Distribution Width SD 49.6 fl (35.1-43.9); Red Blood Count 3.85 M/mm3 (4.2-5.4); White Blood Count 5.9 K/mm3 (4.4-11.0)
[2022-08-29] MEDS: Acetaminophen 325 MG Tablet 650 MG PO ×2 (04:12→21:19)
[2022-08-29 04:20] LABS: Troponin-I HS 44 pg/mL (3.0-54.0)
[2022-08-29 04:28] LABS: ALB/GLOB Ratio 0.6 RATIO (0.9-2.4); AST(SGOT) 23 U/L (15-37); Alanine Aminotransfer ALT/SGPT 25 U/L (13-56); Albumin, Serum 2.5 g/dL (3.2-5.0); Alkaline Phosphatase 65 U/L (45-117); Anion Gap 11 (5-15); BUN 41 mg/dL (7-18); Calcium,Total 8.7 mg/dL (8.5-10.1); Chloride 101 mmol/L (98-107); Creatinine, Serum 1.86 mg/dL (0.55-1.02); EST Glomerular Filtration Rate 29 mL/min (>60); Est Glom Filt Rate - Afr Amer 36 mL/min (>60); Estimated Creatinine Clearance 60.02 ml/min; Globulin 4.2 g/dL (2.2-4.2); Glucose 322 mg/dL (74-106); Potassium 4.8 mmol/L (3.5-5.1); Protein, Total 6.7 g/dL (6.4-8.2); Sodium Level 138 mmol/L (136-145)
[2022-08-29 07:15] LABS: Bedside Glucose 267 mg/dL (74-106)
[2022-08-29] MEDS: Gabapentin 300 MG Capsule PO (08:45)
[2022-08-29] MEDS: Lisinopril 5 MG Tablet PO (10:06)
[2022-08-29] MEDS: Doxepin Hydrochloride 10 MG Capsule PO (10:06)
[2022-08-29] MEDS: Pantoprazole Sodium 20 MG Tablet PO (10:06)
[2022-08-29] MEDS: amLODIPine 5 MG Tablet PO (10:06)
[2022-08-29] MEDS: Sertraline 50 MG Tablet 25 MG PO (10:07)
[2022-08-29] MEDS: Enoxaparin 40 MG/0.4 ML Syringe SC (10:10)
--- NOTE | 2022-08-29 10:21 | CASEMGMT ---
Pt is a long-term resident of [facility], confirmed with patient she wishes to return to [facility] on discharge. Jaja Quinn TECHNICAL SYSTEM ANALYST, CHEMICAL SALES REPRESENTATIVE
--- NOTE | 2022-08-29 10:24 | CASEMGMT ---
YANI sent updates to [facility] via [employer]. YANI did ask if patient is from assisted living or skilled nursing. Rossana Brooks MSW JEFF
--- NOTE | 2022-08-29 10:46 | CASEMGMT ---
[facility] notified SW that patient is from their assisted living. Rossana Brooks TECHNICAL SALES REPRESENTATIVE JEFF
[2022-08-29 11:36] LABS: Bedside Glucose 267 mg/dL (74-106)
--- NOTE | 2022-08-29 14:53 | PN_ITS ---
Subjective Subjective Patient seen and examined. She says she felt better today. She had no complaints. She is not sure why she was brought into the hospital but thinks she was short of breath. She was on 5 L of oxygen at time of review. She denied any cough, chest pain, fever, palpitations, dizziness, nausea or vomiting. Review of systems otherwise negative. He has remained hemodynamically stable. Objective Data Objective Data Vital Signs: Vital Signs Temp Pulse Resp BP Pulse Ox O2 Del Method O2 Flow Rate 97.8 F 96 18 126/90 H 96 Room Air 8 08/29/22 10:04 08/29/22 10:04 08/29/22 10:04 08/29/22 10:04 08/29/22 10:04 08/29/22 10:10 08/29/22 10:04 FiO2 55 08/28/22 23:05 Oxygen Flow Rate (L/min) 8 Oxygen Delivery Method Room Air Weight: 260 lb 9.382 oz Body Mass Index (BMI) 52.6 Intake & Output: Intake and Output for Last 24 Hours 08/27/22 08/28/22 08/29/22 23:59 23:59 23:59 Intake Total 305 / 745 880 / 880 Output Total 300 / 300 Balance 305 / 745 580 / 580 Lab / Micro Data Result Diagrams: 08/29/22 03:24 08/29/22 03:24 Labs: Laboratory Results - last 24 hr 08/28/22 14:40: WBC 9.6, RBC 4.07 L, Hgb 10.5 L, Hct 33.7 L, MCV 82.8, MCH 25.8 L, MCHC 31.2 L, RDW Std Deviation 49.6 H, RDW Coeff of Doris 16.6 H, Plt Count 198, MPV 8.7 08/28/22 14:40: Hemoglobin A1c 7.8 H 08/28/22 20:55: Ammonia 11.0 08/28/22 20:55: Troponin I High Sens 55 H 08/28/22 23:56: POC Glucose 248 H 08/29/22 03:24: WBC 5.9, RBC 3.85 L, Hgb 9.8 L, Hct 32.0 L, MCV 83.1, MCH 25.5 L , MCHC 30.6 L, RDW Std Deviation 49.6 H, RDW Coeff of Doris 16.6 H, Plt Count 175, MPV 9.0, Immature Gran % (Auto) 0.700, Neut % (Auto) 80.7 H, Lymph % (Auto) 15.5 L, [place] % (Auto) 3.1, Eos % (Auto) 0.0, Baso % (Auto) 0.0, Absolute Neuts (auto) 4.8, Absolute Lymphs (auto) 0.91, Nucleated RBC % 0 08/29/22 03:24: Sodium 138, Potassium 4.8, Chloride 101, Carbon Dioxide 26.0, Anion Gap 11, BUN 41 H, Creatinine 1.86 H, Estim Creat Clear Calc 60.02, Est GFR (MDRD) Af Amer 36 L, Est GFR (MDRD) Non-Af 29 L, BUN/Creatinine Ratio 22.0 H, Glucose 322 H, Calcium 8.7, Total Bilirubin 0.30, AST 23, ALT 25, Alkaline Phosphatase 65, Total Protein 6.7, Albumin 2.5 L, Globulin 4.2, Albumin/Globulin Ratio 0.6 L 08/29/22 03:24: Troponin I High Sens 44 08/29/22 06:48: POC Glucose 267 H 08/29/22 11:09: POC Glucose 267 H Micro: Microbiology 08/28/22 13:44 Nasal Secretion SARS-CoV-2 Antigen (Rapid) - Final ABG Data ABG results: ABG 08/28/22 20:01 Specimen Type ART Sample Site R Radial pH 7.40 Bicarbonate Actual 26.9 H Total CO2 28 Base Excess 2 O2 Saturation 99 O2 % 70 ABG pCO2 43.7 ABG pO2 121 H Vickey Test Positive Respiration Rate 14 O2 Delivery Device BiPAP Tidal Volume 450 POC PEEP 12 Physical Exam Const alert, oriented x3 and no apparent distress Constitutional Narrative: Super morbid obesity. General Appearance: cooperative HEENT normocephalic, head/scalp atraumatic and moist oral mucous membranes Eyes PERRL and EOMs intact bilaterally Neck no lymphadenopathy, supple and no JVD General: trachea midline Lymph Lymphatic: no lymphadenopathy noted and no lymphedema noted Resp Resp Narrative: Mildly diminished breath sounds bibasally. No wheezes or crackles. On 5 L of oxygen at time of my review. Cardio regular rate, regular rhythm, S1 normal heart sound, S2 normal heart sound and no murmurs GI normal to inspection, nondistended, normoactive bowel sounds, soft to palpation, non-tender and non-distended Extremity normal capillary refill, no clubbing, cyanosis or edema and no calf tenderness Skin General Skin Exam: no breakdown Neuro CN's II-XII intact bilaterally, no focal motor deficits, no sensory deficits noted and deep tendon reflexes 2+ bilaterally Psych thought process normal Assessment & Plan Assessment/Plan (1) Acute hypoxemic respiratory failure: (2) Pneumonia: PLAN: Plan Acute hypoxic respiratory failure due to CHF exacerbation * Was admitted with a complaint of shortness of breath. She was quite hypoxic and required oxygen. Was on 5 L of oxygen at time of my review but she was subsequently weaned down to room air. * She has been diuresed with Lasix. 2D echo pending. * Chest x-ray did show a left basilar pulmonary infiltrate but patient did not have a fever or cough and not have any clinical findings of pneumonia neither did she have elevated white cell count so she was not started on antibiotics. * Breathing treatments of bronchodilators. Titrate oxygen to maintain saturation above 90%. * 2D echo done. Read is pending. * #CKD stage IIIb with elevated creatinine: Creatinine was 1.66 on admission. Only baseline is from July 2022 when it was 1.66. Creatinine today is 1.86. Will trend creatinine. #Hyperlipidemia: On statin #Hypertension: On amlodipine #Depression: On sertraline and olanzapine as well as ziprasidone. #Type 2 diabetes mellitus: On Lantus 60 units nightly. Insulin sliding scale. Accu-Cheks ACHS. CODE STATUS: Full code Charges/Coding Visit Charges Inpatient E&M: 77879 Subs Hosp L2
[2022-08-29 16:40] LABS: Bedside Glucose 302 mg/dL (74-106)
--- NOTE | 2022-08-29 19:58 | CPS ---
Pt refused to wear BIPAP for tonight.
[2022-08-29 23:46] LABS: Bedside Glucose 254 mg/dL (74-106)
[2022-08-30] VITALS (8 sets, daily range): BP systolic 106–114; BP diastolic 69–73; PULSE 83–93; RESP 18; TEMP 36.3–36.8; O2SAT 93–96; BMI 52.8
[2022-08-30] MEDS: hydrOXYzine PAM 25 MG Capsule PO (03:23)
[2022-08-30 07:03] LABS: Absolute Lymphocyte Count 4.09 X10^3/uL (0.83-4.51); Absolute Neutrophil Count 4.8 X10^3/uL (2.0-7.7); Basophil# 0.06 X10^3/uL; Basophil% 0.6 % (0-1); Eosinophil# 0.15 X10^3/uL; Eosinophils% 1.5 % (0-5); Hematocrit 33.1 % (37-47); Hemoglobin 9.8 g/dL (12.0-15.0); Lymphocyte # 4.09 X10^3/ul (0.83-4.51); Lymphocyte % 41.6 % (19-41); Mean Corp Hgb Conc 29.6 g/dL (32-36); Mean Corpuscular Hgb 25.3 pg (27.0-32.0); Mean Corpuscular Volume 85.5 fL (81-99); Monocyte# 0.66 X10^3/uL; Monocyte% 6.7 % (0-10); NRBC Flagged by Analyzer 0.2 % (0-5); Neutrophil # 4.84 X10^3/uL (2.7-7.7); Neutrophil % 49.2 % (47-70); Platelet Count 208 K/mm3 (150-450); RBC Distribution Width CV 16.9 % (11.6-14.6); RBC Distribution Width SD 52.7 fl (35.1-43.9); Red Blood Count 3.87 M/mm3 (4.2-5.4); White Blood Count 9.8 K/mm3 (4.4-11.0)
[2022-08-30 07:15] LABS: Bedside Glucose 147 mg/dL (74-106)
[2022-08-30 07:32] LABS: Anion Gap 7 (5-15); BUN 72 mg/dL (7-18); BUN/Creat Ratio 34.1 RATIO (10-20); Calcium,Total 8.9 mg/dL (8.5-10.1); Chloride 102 mmol/L (98-107); Creatinine, Serum 2.11 mg/dL (0.55-1.02); EST Glomerular Filtration Rate 25 mL/min (>60); Est Glom Filt Rate - Afr Amer 31 mL/min (>60); Estimated Creatinine Clearance 53.13 ml/min; Glucose 156 mg/dL (74-106); Potassium 5.1 mmol/L (3.5-5.1); Sodium Level 136 mmol/L (136-145)
[2022-08-30] MEDS: Doxepin Hydrochloride 10 MG Capsule PO (09:57)
[2022-08-30] MEDS: Sertraline 50 MG Tablet 25 MG PO (09:57)
[2022-08-30] MEDS: Enoxaparin 40 MG/0.4 ML Syringe SC (09:57)
[2022-08-30] MEDS: Pantoprazole Sodium 20 MG Tablet PO (09:58)
[2022-08-30] MEDS: Lisinopril 5 MG Tablet PO (09:58)
[2022-08-30] MEDS: Divalproex Sodium 125 MG Tablet PO ×2 (09:59→22:20)
[2022-08-30] MEDS: Gabapentin 300 MG Capsule PO (09:59)
--- NOTE | 2022-08-30 11:22 | PN_ITS ---
Subjective Subjective Patient seen and examined. She says she feels much better today. She has no active complaints. She denies any cough, chest pain, palpitations, dizziness, nausea, vomiting or diarrhea. Review of systems is otherwise negative. She has remained hemodynamically stable. Objective Data Objective Data Vital Signs: Vital Signs Temp Pulse Resp BP Pulse Ox O2 Del Method O2 Flow Rate 98.2 F 89 18 114/71 94 Nasal Cannula 1 08/30/22 10:39 08/30/22 10:39 08/30/22 10:39 08/30/22 10:39 08/30/22 10:39 08/30/22 10:39 08/30/22 10:39 FiO2 55 08/28/22 23:05 Oxygen Flow Rate (L/min) 1 Oxygen Delivery Method Nasal Cannula Weight: 261 lb 11.019 oz Body Mass Index (BMI) 52.8 Intake & Output: Intake and Output for Last 24 Hours 08/28/22 08/29/22 08/30/22 23:59 23:59 23:59 Intake Total 305 / 745 1360 / 1600 1040 / 1040 Output Total 575 / 725 250 / 250 Balance 305 / 745 785 / 875 790 / 790 Lab / Micro Data Result Diagrams: 08/30/22 06:45 08/30/22 06:45 Labs: Laboratory Results - last 24 hr 08/29/22 11:09: POC Glucose 267 H 08/29/22 16:05: POC Glucose 302 H 08/29/22 21:18: POC Glucose 254 H 08/30/22 06:45: WBC 9.8, RBC 3.87 L, Hgb 9.8 L, Hct 33.1 L, MCV 85.5, MCH 25.3 L , MCHC 29.6 L, RDW Std Deviation 52.7 H, RDW Coeff of Doris 16.9 H, Plt Count 208, MPV 9.0, Immature Gran % (Auto) 0.400, Neut % (Auto) 49.2, Lymph % (Auto) 41.6 H , [place] % (Auto) 6.7, Eos % (Auto) 1.5, Baso % (Auto) 0.6, Absolute Neuts (auto) 4.8, Absolute Lymphs (auto) 4.09, Nucleated RBC % 0.2 08/30/22 06:45: Sodium 136, Potassium 5.1, Chloride 102, Carbon Dioxide 27.0, Anion Gap 7, BUN 72 H, Creatinine 2.11 H, Estim Creat Clear Calc 53.13, Est GFR (MDRD) Af Amer 31 L, Est GFR (MDRD) Non-Af 25 L, BUN/Creatinine Ratio 34.1 H, Glucose 156 H, Calcium 8.9 08/30/22 06:51: POC Glucose 147 H Micro: Microbiology 08/28/22 13:44 Nasal Secretion SARS-CoV-2 Antigen (Rapid) - Final Radiography Diagnostic Testing: Radiology Impression Echocardiogram 08/28/22 19:29 Interpretation Summary The study was technically difficult. The left ventricular ejection fraction is 40-45 %. Ordering Physician: Tyler Faustin Referring Physician: LOY PCP Performed By: Jennifer Gaspar RCS Physical Exam Const alert, oriented x3 and no apparent distress Constitutional Narrative: Super morbid obesity. General Appearance: cooperative HEENT normocephalic, head/scalp atraumatic and moist oral mucous membranes Eyes PERRL and EOMs intact bilaterally Neck no lymphadenopathy, supple and no JVD General: trachea midline Lymph Lymphatic: no lymphadenopathy noted and no lymphedema noted Resp Resp Narrative: Mildly diminished breath sounds bibasally. No wheezes or crackles. On 1 L of oxygen at time of my review. Cardio regular rate, regular rhythm, S1 normal heart sound, S2 normal heart sound and no murmurs GI normal to inspection, nondistended, normoactive bowel sounds, soft to palpation, non-tender and non-distended Extremity normal capillary refill, no clubbing, cyanosis or edema and no calf tenderness Skin General Skin Exam: no breakdown Neuro CN's II-XII intact bilaterally, no focal motor deficits, no sensory deficits noted and deep tendon reflexes 2+ bilaterally Psych thought process normal Assessment & Plan Assessment/Plan (1) Acute hypoxemic respiratory failure: (2) Pneumonia: PLAN: Plan Acute hypoxic respiratory failure due to CHF exacerbation * Was admitted with a complaint of shortness of breath. She was quite hypoxic and required oxygen. Was on 5 L of oxygen at time of my review but she was subsequently weaned down to room air. * She was given lasix in the ED but this was not continued * Chest x-ray did show a left basilar pulmonary infiltrate but patient did not h ave a fever or cough and not have any clinical findings of pneumonia neither did she have elevated white cell count so she was not started on antibiotics. * Breathing treatments of bronchodilators. Titrate oxygen to maintain saturation above 90%. * 2D echo: EF of 40%, with normal LV size, unable to assess diastolic function * hold off on lasix for now in light of Cr trending upwards * #GERRY on CKD stage IIIb with elevated creatinine: Cr up to 2.11, from 1.66 on admission. hydrate gently with IVF NS 75cc x 1L and trend Cr #Hyperlipidemia: On statin #Hypertension: On amlodipine #Depression: On sertraline and olanzapine as well as ziprasidone. #Type 2 diabetes mellitus: On Lantus 60 units nightly. Insulin sliding scale. Accu-Cheks ACHS. CODE STATUS: Full code Disposition: anticipate dc over the next 24-48 hours Charges/Coding Visit Charges Inpatient E&M: 40628 Subs Hosp L2
[2022-08-30] MEDS: amLODIPine 5 MG Tablet PO (11:29)
[2022-08-30] MEDS: Insulin Lispro 100 UNIT/ML INSULN.PEN SC ×3 (11:30→22:23)
--- NOTE | 2022-08-30 11:59 | CASEMGMT ---
Updates were sent to [facility] via [employer]. SW also let them know patient will likely return to [facility] tomorrow. SW asked what fax number orders should be sent to. Plan: d/c back to [facility] CONSULTING SOLUTION MANAGER JEFF
[2022-08-30 12:00] LABS: Bedside Glucose 207 mg/dL (74-106)
[2022-08-30] MEDS: 0.9% Normal Saline 1,000 ML 75 ML IV (12:45)
--- NOTE | 2022-08-30 15:07 | CASEMGMT ---
[facility] is aware patient is ready to return tomorrow. Green sheet on patient's chart. Patient will need transportation arranged. Plan: d/c back to [facility]. Rossana AGUILAR
[2022-08-30 16:55] LABS: Bedside Glucose 179 mg/dL (74-106)
[2022-08-30] MEDS: Insulin Glargine-YFGN 100 UNIT/ML Pen 60 UNIT SC (22:24)
[2022-08-30] MEDS: Sertraline 100 MG Tablet PO (22:26)
[2022-08-30] MEDS: Atorvastatin Calcium 10 MG Tablet PO (22:26)
[2022-08-31 01:50] LABS: Bedside Glucose 198 mg/dL (74-106)
[2022-08-31 03:30] VITALS: BP 118/77; PULSE 85; RESP 16; TEMP 36.1; O2SAT 98
--- NOTE | 2022-08-31 04:07 | CPS ---
pt declines use of hospital bipap
[2022-08-31 06:45] LABS: Absolute Lymphocyte Count 2.49 X10^3/uL (0.83-4.51); Absolute Neutrophil Count 4.2 X10^3/uL (2.0-7.7); Basophil# 0.03 X10^3/uL; Basophil% 0.4 % (0-1); Eosinophil# 0.17 X10^3/uL; Eosinophils% 2.2 % (0-5); Hemoglobin 10.3 g/dL (12.0-15.0); Lymphocyte # 2.49 X10^3/ul (0.83-4.51); Lymphocyte % 32.8 % (19-41); Mean Corp Hgb Conc 31.2 g/dL (32-36); Mean Corpuscular Hgb 25.8 pg (27.0-32.0); Mean Corpuscular Volume 82.7 fL (81-99); Mean Platelet Vol. 8.6 fl (6.2-12.0); Monocyte# 0.66 X10^3/uL; Monocyte% 8.7 % (0-10); NRBC Flagged by Analyzer 0 % (0-5); Neutrophil # 4.22 X10^3/uL (2.7-7.7); Neutrophil % 55.6 % (47-70); Platelet Count 209 K/mm3 (150-450); RBC Distribution Width CV 16.4 % (11.6-14.6); RBC Distribution Width SD 49.3 fl (35.1-43.9); Red Blood Count 3.99 M/mm3 (4.2-5.4); White Blood Count 7.6 K/mm3 (4.4-11.0)
[2022-08-31 07:24] LABS: Anion Gap 4 (5-15); BUN 65 mg/dL (7-18); BUN/Creat Ratio 40.1 RATIO (10-20); Chloride 107 mmol/L (98-107); Creatinine, Serum 1.62 mg/dL (0.55-1.02); EST Glomerular Filtration Rate 34 mL/min (>60); Est Glom Filt Rate - Afr Amer 42 mL/min (>60); Glucose 108 mg/dL (74-106); Potassium 4.7 mmol/L (3.5-5.1); Sodium Level 139 mmol/L (136-145)
[2022-08-31 07:56] VITALS: O2SAT 94
[2022-08-31 08:54] VITALS: BP 100/58; PULSE 93; RESP 18; TEMP 36.3; O2SAT 96
[2022-08-31] MEDS: Sertraline 50 MG Tablet 25 MG PO (09:06)
[2022-08-31] MEDS: Pantoprazole Sodium 20 MG Tablet PO (09:06)
[2022-08-31] MEDS: Enoxaparin 40 MG/0.4 ML Syringe SC (09:06)
[2022-08-31] MEDS: Divalproex Sodium 125 MG Tablet PO (09:06)
[2022-08-31] MEDS: Doxepin Hydrochloride 10 MG Capsule PO (09:07)
[2022-08-31] MEDS: Acetaminophen 325 MG Tablet 650 MG PO (09:07)
[2022-08-31] MEDS: Gabapentin 300 MG Capsule PO (09:07)
[2022-08-31 11:20] VITALS: O2SAT 91; O2SAT 93
[2022-08-31 11:20] LABS: Bedside Glucose 99 mg/dL (74-106)
[2022-08-31] MEDS: Insulin Lispro 100 UNIT/ML INSULN.PEN SC (11:27)
[2022-08-31 11:45] LABS: Bedside Glucose 168 mg/dL (74-106)
--- NOTE | 2022-08-31 14:15 | PCM.DC.SUM ---
Providers Date of Admission: 08/28/22 Date of Discharge: 08/31/22 Primary Care Physician: CURTIS LEVI Reason For Visit: RESP FAILURE Diagnosis Discharge Diagnosis (1) Acute hypoxemic respiratory failure: Status: Acute Code(s): J96.01 - Acute respiratory failure with hypoxia (2) Pneumonia: Status: Acute Code(s): J18.9 - Pneumonia, unspecified organism Plan Acute hypoxic respiratory failure due to CHF exacerbation Was admitted with a complaint of shortness of breath. She was quite hypoxic and required oxygen. Was on 5 L of oxygen at time of my review but she was subsequently weaned down to room air. She was given lasix in the ED but this was not continued Chest x-ray did show a left basilar pulmonary infiltrate but patient did not have a fever or cough and not have any clinical findings of pneumonia neither did she have elevated white cell count so she was not started on antibiotics. Breathing treatments of bronchodilators. Titrate oxygen to maintain saturation above 90%. 2D echo: EF of 40%, with normal LV size, unable to assess diastolic function hold off on lasix for now in light of Cr trending upwards #GERRY on CKD stage IIIb with elevated creatinine: Cr up to 2.11, from 1.66 on admission. hydrate gently with IVF NS 75cc x 1L and trend Cr #Hyperlipidemia: On statin #Hypertension: On amlodipine #Depression: On sertraline and olanzapine as well as ziprasidone. #Type 2 diabetes mellitus: On Lantus 60 units nightly. Insulin sliding scale. Accu-Cheks ACHS. CODE STATUS: Full code Disposition: anticipate dc over the next 24-48 hours Medications at Discharge Home Medications divalproex 125 mg tablet,delayed release 125 mg PO BID 05/29/22 doxepin 10 mg capsule 10 mg PO DAILY SLEEP 05/29/22 flash glucose scanning reader (FreeStyle Jolie 2 [place]) #1 ea 05/29/22 flash glucose sensor (FreeStyle Jolie 2 Sensor kit) #2 ea 05/29/22 gabapentin 300 mg capsule 300 mg PO DAILY 05/29/22 hydroxyzine HCl 25 mg tablet 25 mg PO TID PRN Anxiety 05/29/22 omeprazole 20 mg capsule,delayed release 20 mg PO DAILY GERD 05/29/22 sertraline 25 mg tablet 25 mg PO DAILY MOOD 05/29/22 simvastatin 20 mg tablet 20 mg PO QHS CHOLESTEROL 05/29/22 ziprasidone HCl 80 mg capsule 80 mg PO QHS MOOD 05/29/22 amlodipine 5 mg tablet 5 mg PO DAILY #30 tabs 07/15/22 acetaminophen 325 mg tablet 650 mg PO BID PRN PAIN AND FEVER 08/28/22 ergocalciferol (vitamin D2) 1,250 mcg (50,000 unit) capsule (Drisdol) 1,250 mcg PO MOTH SUPPLEMENT 08/28/22 insulin glargine 100 unit/mL subcutaneous solution (Lantus U-100 Insulin) 60 unit subcut QHS DM 08/28/22 insulin lispro 100 unit/mL subcutaneous pen 20 unit subcut TID DM 08/28/22 mirabegron 50 mg tablet,extended release 24 hr (Myrbetriq) 100 mg PO DAILY BLADDER 08/28/22 nystatin 100,000 unit/gram topical powder (Nystop) 1 applic topical BID SKIN 08/28/22 olanzapine 10 mg tablet 10 mg PO QHS MOOD 08/28/22 sertraline 100 mg tablet 100 mg PO QHS MOOD 08/28/22 furosemide 20 mg tablet 20 mg PO DAILY #30 tabs 08/31/22 lisinopril 5 mg tablet 5 mg PO DAILY #30 tabs 08/31/22 Hospital Course Operations None Procedures 2-D Echocardiogram Summary of Care Provided Minutes Spent on Discharge: 55 Hospital Course: Patient is a 62-year-old female with a past medical history as outlined was admitted with a complaint of shortness of breath. She was found to be hypoxic by family with her oxygen sats down to the 80s. She was started on nasal canula but was placed on BIPAP due to increased work of breathing. CXR showed a left lower lobe opacity. There was concern about pneumonia and BNP was elevated. She was admitted and managed for acute hypoxic respiratory failure which was thought to be due to CHF exacerbation. Initial troponin was only 76 and trended down to 55 and subsequently normalized at 44. 2D echo done showed EF of 40 to 45%. She was diuresed gently with IV Lasix. Shortness of breath improved and she was weaned completely off of oxygen. I did discuss with cardiology about cardiology evaluation but since patient's shortness of breath had improved and she felt much better, she was weaned off of oxygen. She remained stable and was discharged home on 08/31/2022. She is to follow-up with cardiology on outpatient basis for further work-up on account of the EF of 40 to 45%. Patient was seen and examined prior to discharge. She felt well and had no complaints. Review of systems otherwise negative. Labs and vitals reviewed. Home medication reviewed and reconciled. Physical Exam Const alert, oriented x3 and no apparent distress Constitutional Narrative: Super morbid obesity. General Appearance: cooperative, comfortable and well kempt HEENT normocephalic, head/scalp atraumatic, hearing grossly normal bilaterally and moist oral mucous membranes Mouth: oral and palatal mucosa normal Eyes PERRL and EOMs intact bilaterally Neck no lymphadenopathy, supple and no JVD General: trachea midline Lymph Lymphatic: no lymphadenopathy noted and no lymphedema noted Resp Resp Narrative: Mildly diminished breath sounds bibasally. No wheezes or crackles. On room air Cardio regular rate, regular rhythm, S1 normal heart sound, S2 normal heart sound and no murmurs GI normal to inspection, nondistended, normoactive bowel sounds, soft to palpation, non-tender and non-distended Extremity normal capillary refill, no clubbing, cyanosis or edema and no calf tenderness Skin General Skin Exam: no breakdown Neuro oriented x3, CN's II-XII intact bilaterally, moves all extremities, no focal motor deficits, no sensory deficits noted and deep tendon reflexes 2+ bilaterally Psych thought process normal Weight / BMI Weight Weight: 261 lb 11.019 oz Body Mass Index (BMI) 52.8 ABG / Lab / Microbiology Data Result Diagrams: 08/31/22 06:19 08/31/22 06:19 Laboratory: Laboratory Results - last 24 hr 08/30/22 16:26: POC Glucose 179 H 08/30/22 22:22: POC Glucose 198 H 08/31/22 06:19: WBC 7.6, RBC 3.99 L, Hgb 10.3 L, Hct 33.0 L, MCV 82.7, MCH 25.8 L, MCHC 31.2 L D, RDW Std Deviation 49.3 H, RDW Coeff of Doris 16.4 H, Plt Count 209, MPV 8.6, Immature Gran % (Auto) 0.300, Neut % (Auto) 55.6, Lymph % (Auto) 32.8, Weber % (Auto) 8.7, Eos % (Auto) 2.2, Baso % (Auto) 0.4, Absolute Neuts (auto) 4.2, Absolute Lymphs (auto) 2.49, Nucleated RBC % 0 08/31/22 06:19: Sodium 139, Potassium 4.7, Chloride 107, Carbon Dioxide 28.0, Anion Gap 4 L, BUN 65 H, Creatinine 1.62 H, Estim Creat Clear Calc 69.20, Est GFR (MDRD) Af Amer 42 L, Est GFR (MDRD) Non-Af 34 L, BUN/Creatinine Ratio 40.1 H, Glucose 108 H, Calcium 9.0 08/31/22 06:57: POC Glucose 99 08/31/22 11:26: POC Glucose 168 H Microbiology: Microbiology 08/28/22 13:44 Nasal Secretion SARS-CoV-2 Antigen (Rapid) - Final D/C Instructions Discharge Diet: Low fat / Low cholesterol Weight Bearing Status: Weight bearing as tolerated Call your doctor if you observe: Fever of 101 or Higher, Shortness of breath, Dizziness, Swelling in the ankles, Chest pain and Increased palpitations (irregular heartbeat) Meaningful Use Info Meaningful Use Diagnoses (Choose all that apply): None applicable Discharge Plan Admission Admit Date/Time: 08/28/22 18:29 Primary Reason for Your Visit: shortness of breath Attending Provider: Natalia Ramos Primary Care Provider: CURTIS LEVI Consulting Providers: Tyler Faustin Discharge Orders/Prescriptions Prescriptions: New lisinopril 5 mg Tablet 5 mg PO DAILY Qty: 30 0RF furosemide 20 mg tablet 20 mg PO DAILY Qty: 30 1RF Continued simvastatin 20 mg tablet 20 mg PO QHS gabapentin 300 mg capsule 300 mg PO DAILY hydroxyzine HCl 25 mg tablet 25 mg PO TID PRN (Reason: Anxiety) divalproex 125 mg tablet,delayed release (DR/EC) 125 mg PO BID sertraline 25 mg tablet 25 mg PO DAILY ziprasidone HCl 80 mg capsule 80 mg PO QHS Rx Instructions: give with food (meal/snack) doxepin 10 mg capsule 10 mg PO DAILY omeprazole 20 mg capsule,delayed release(DR/EC) 20 mg PO DAILY (DME) FreeStyle Jolie 2 [place] Misc See Rx Instructions .Route Qty: 1 0RF Rx Instructions: As directed (DME) FreeStyle Jolie 2 Sensor Kit See Rx Instructions .Route Qty: 2 5RF Rx Instructions: 1 sensor q 14 days nystatin [Nystop] 100,000 unit/gram Powder 1 applic TOPICAL BID acetaminophen 325 mg tablet 650 mg PO BID PRN (Reason: PAIN AND FEVER) sertraline 100 mg tablet 100 mg PO QHS olanzapine 10 mg tablet 10 mg PO QHS ergocalciferol (vitamin D2) [Drisdol] 1,250 mcg (50,000 unit) Capsule 1,250 mcg PO MOTH Myrbetriq 50 mg Tablet Extended Release 24 Hr 100 mg PO DAILY insulin glargine [Lantus U-100 Insulin] 100 unit/mL solution 60 unit subcut QHS insulin lispro 100 unit/mL insulin pen 20 unit subcut TID amlodipine 5 mg tablet 5 mg PO DAILY Qty: 30 6RF Referrals / Follow Up: CURTIS LEVI [Other] Chencho Hays MD [Med Staff - Active Staff] - Within 2 Weeks (see for outpatient workup for EF of 40%) Nini Rubi MD [Non-Staff] - Disposition Disposition (needs filled in before D/C Order can be placed): Assisted Living Charges/Coding Visit Charges Inpatient E&M: 17608 Disch Hosp >30min
--- NOTE | 2022-08-31 14:34 | NURSING ---
Left vm for pt's sister Alisha to call unit back so we can inform her of pt's d/c to [facility].
--- NOTE | 2022-08-31 14:35 | NURSING ---
I have tried to call [facility] with the number that is on the green sheet and on google and there is nothing no busy sound, no ringing, just air. Pt will be picked up at at 1500 to head to [facility].
[2022-08-31 14:39] VITALS: BP 129/72; PULSE 92; RESP 16; TEMP 36.6; O2SAT 92
--- NOTE | 2022-08-31 14:45 | CASEMGMT ---
Social Work Note SW was informed by community organizer the RN is unable to call report as the phone number listed on green sheet isn't working. SW attempted to call [facility], however, there was no dial tone. SW attempted to contact corporate office and there was no answer due to their office being closed. SW attempted to call other contact for [facility], however there was no answer. SW attempted to call [facility] at their main number multiple times with no luck. YANI updated [employer] Crew Supervisor. Suzanna Sood REHAB THERAPY MANAGER, MINE MANAGER
--- NOTE | 2022-08-31 15:08 | NURSING ---
This RN has attempted to call [facility] to give report at this time, unsuccessful.
== END 2022-08-31 14:50 | disposition home or self-care (01) | DRG 194 ==
LOC: ED 15:37 → PCU 18:44
PROVIDERS: Admitting Provider Family Medicine; Emergency Provider Emergency Medicine; Visit Provider Student in an Organized Health Care Education/Training Program
DX: I13.0 Hypertensive heart and chronic kidney disease with heart failure and stage 1 through stage 4 chronic kidney disease, or unspecified chronic kidney disease (principal); J96.01 Acute respiratory failure with hypoxia; G93.41 Metabolic encephalopathy; G92.9 Unspecified toxic encephalopathy; N17.9 Acute kidney failure, unspecified; I50.21 Acute systolic (congestive) heart failure; F39 Unspecified mood [affective] disorder; E11.22 Type 2 diabetes mellitus with diabetic chronic kidney disease; N18.32 Chronic kidney disease, stage 3b; Z79.4 Long term (current) use of insulin; E66.01 Morbid (severe) obesity due to excess calories; Z68.43 Body mass index [BMI] 50.0-59.9, adult; E78.5 Hyperlipidemia, unspecified; Z20.822 Contact with and (suspected) exposure to COVID-19; Z79.899 Other long term (current) drug therapy
CPT/HCPCS: 36415; 36600; 71045; 80048; 80053; 82140; 82803; 82962; 83036; 83880; 84484; 85025; 85027; 87811; 93005; 93306; 94002; 94640; 94762; 97110; 97116; 97162; 97166; 97535; 97802; 99285; J7030; J7050; Q9957; A4216; C8929; J1940

== ENCOUNTER → 2022-11-12 | Outpatient (CLI) | payer MEDICAID, SELFPAY ==
--- NOTE | 2022-11-14 13:45 | STRESSREP_ITS ---
Stress Test Report Date: 11/12/2022 Procedure: Pharmacologic stress nuclear imaging study Indications: CHF Consent: Per the patient Procedure: The patient underwent pharmacologic (Regadenoson 0.4mg ) evaluation with a peak heart rate of 99 beats per minute (61%predicted maximal heart rate) and a peak blood pressure of 128/88 mmHg. The baseline ECG demonstrated normal sinus rhythm. The peak pharmacologic ECG demonstrated no ischemic change. Rare PVCs were noted. There was no complaint of chest discomfort during pharmacologic infusion or suzie very. The patient was injected with 14.1 millicuries of technetium 99m Cardiolite and subsequently rest SPECT Cardiolite nuclear imaging was obtained in the horizontal long, vertical long, and short axis views. The patient underwent pharmacologic (Regadenoson) evaluation. The patient was injected with 44.1 millicuries of technetium 99m Cardiolite and subsequently stress SPECT Cardiolite nuclear imaging was obtained in the horizontal long, vertical long, and short axis views. A gated Cardiolite study at peak stress was obtained. The examination was stopped secondary to completion of protocol. Rest and stress SPECT Cardiolite nuclear imaging status post realignment, normalization, and attenuation correction demonstrate decreased perfusion in the inferior wall that appears worse post stress. Cannot exclude inferior ischemia. There is end systolic thickening and brightening. The gated Cardiolite study demonstrates myocardial thickening and inward wall motion. The reported LVEF is 52%. Impression: 1. Pharmacologic (Regadenoson) evaluation 2. Peak pharmacologic ECG with no ischemic changes. 3. Occasional PVCs noted. 5. Attenuation artifacts noted. Technical limitations of the study noted however cannot rule out inferior ischemia. 6. The gated Cardiolite study reports an LVEF of 52%. This note was generated with [employer] software. It may contain incorrect words, spelling, and punctuation that were not noted in checking the note before signing.
== END | disposition home or self-care (01) ==
LOC: CVS 07:22
PROVIDERS: Referring Provider Internal Medicine Cardiovascular Disease; Visit Provider Internal Medicine Cardiovascular Disease
DX: I50.9 Heart failure, unspecified (principal); R93.1 Abnormal findings on diagnostic imaging of heart and coronary circulation
CPT/HCPCS: 78452; 93017; A9500; A4216; J2785

== ENCOUNTER 2022-12-06 13:35 | Inpatient (IN) | payer MEDICAID, SELFPAY ==
[2022-12-06] VITALS (18 sets, daily range): BP systolic 82–168; BP diastolic 47–110; PULSE 99–112; RESP 20–28; TEMP 36.3–39.6; O2SAT 93–99; BMI 52.3; BMI 51.6
--- NOTE | 2022-12-06 13:49 | EKG12_ITS ---
Test Reason : SOB/HYPOXIC Blood Pressure : / mmHG Vent. Rate : 116 BPM Atrial Rate : 116 BPM P-R Int : 122 ms QRS Dur : 084 ms QT Int : 340 ms P-R-T Axes : 041 010 063 degrees QTc Int : 472 ms Sinus tachycardia Low voltage QRS Borderline ECG Confirmed by EDITH NAVA, ANTHONY ([id number]), food expeditor CHELSEY TYSON ([id number]) on 12/09/2022 12:45:55 PM Referred By: LIZETTE/FAY Confirmed By:ANTHONY SHARMA MD
--- NOTE | 2022-12-06 13:56 | EX.ED.DYSGE1 ---
HPI History of Present Illness Chief Complaint: Shortness of Breath Informant: patient and EMS Narrative Narrative: LastBrought in by [facility] from [facility] increasing dyspnea cough. Patient states yesterday felt nauseated and ill. Cough and unable to get anything up. Fever and chills overnight. No vomiting or diarrhea. Denies urinary symptoms. Denies asthma or COPD or tobacco history. No home oxygen. Found to be 85% on room air, placed on a nonrebreather and brought in. Status post aerosol treatment x1. Blood glucose 112 with diabetes history. History of CKD diabetes hypertension records known non-ST elevation [place] however patient denies any heart attack or stent history. Denies any current chest pains. Patient has been at assisted living for the past year. Denies any leg swelling or cramping.Denies any myalgias. States vaccine of COVID with the booster along with influenza vaccine this year. Has had COVID in the past. Pain due to osteoarthritis knees has been wheelchair 2 months. [facility] Medical History Abnormal echocardiogram Diabetes mellitus Essential hypertension Hepatitis C History of mental problems Hypertension Tonsillectomy planned Type 2 diabetes mellitus Home Medications doxepin 10 mg capsule 10 mg PO DAILY SLEEP 05/29/22 [History Last Taken 12/05/22] flash glucose scanning reader ([employer] Jolie 2 [place]) #1 ea 05/29/22 [Rx Last Taken Unknown] gabapentin 300 mg capsule 300 mg PO DAILY 05/29/22 [History Last Taken 12/05/22] omeprazole 20 mg capsule,delayed release 20 mg PO DAILY GERD 05/29/22 [History Last Taken 12/05/22] sertraline 25 mg tablet 25 mg PO DAILY MOOD 05/29/22 [History Last Taken 12/05/22] simvastatin 20 mg tablet 20 mg PO QHS CHOLESTEROL 05/29/22 [History Last Taken 12/04/22] ziprasidone HCl 80 mg capsule 80 mg PO DAILY MOOD 05/29/22 [History Last Taken 12/03/22] amlodipine 5 mg tablet 5 mg PO DAILY #30 tabs 07/15/22 [Rx Last Taken 12/05/22] acetaminophen 325 mg tablet 650 mg PO BID PRN PAIN AND FEVER 08/28/22 [History Last Taken 08/27/22] ergocalciferol (vitamin D2) 1,250 mcg (50,000 unit) capsule (Drisdol) 1,250 mcg PO .BIW SUPPLEMENT 08/28/22 [History Last Taken 12/02/22] nystatin 100,000 unit/gram topical powder (Nystop) 1 applic topical BID SKIN 08/28/22 [History Last Taken Unknown] olanzapine 10 mg tablet 10 mg PO QHS MOOD 08/28/22 [History Last Taken 12/05/22] sertraline 100 mg tablet 100 mg PO QHS MOOD 08/28/22 [History Last Taken 12/05/22] furosemide 20 mg tablet 20 mg PO DAILY #30 tabs 08/31/22 [Rx Last Taken 12/05/22] lisinopril 5 mg tablet 5 mg PO DAILY #30 tabs 08/31/22 [Rx Last Taken 12/04/22] albuterol sulfate 90 mcg/actuation aerosol inhaler (Ventolin HFA) 2 puff inhalation Q4H PRN shortness of breath or wheezing 09/23/22 [History Last Taken Unknown] divalproex 125 mg tablet,delayed release 125 mg PO BID 09/23/22 [History Last Taken 12/05/22] flash glucose sensor ([employer] Jolie 2 Sensor kit) #2 ea 09/23/22 [Rx Last Taken Unknown] hydroxyzine HCl 25 mg tablet 25 mg PO TID Anxiety 09/23/22 [History Last Taken 12/05/22] insulin lispro 100 unit/mL subcutaneous pen 35 unit (0.35 mL) subcut TID DM #31.5 mL 10/31/22 [Rx Last Taken 12/05/22] HUMALOG KWIK PEN 100U/ML See Protocol DM 12/06/22 [History Last Taken 12/05/22] docusate sodium 100 mg capsule (Colace) 100 mg PO BID 12/06/22 [History Last Taken 12/05/22] fesoterodine 8 mg tablet,extended release 24 hr (Toviaz) 8 mg PO DAILY 12/06/22 [History Last Taken 12/05/22] insulin glargine 100 unit/mL (3 mL) subcutaneous pen (Lantus Solostar U-100 Insulin) 55 unit subcut QHS 12/06/22 [History Last Taken 12/05/22] polyethylene glycol 3350 17 gram/dose oral powder (Miralax) 17 g PO DAILY 12/06/22 [History Last Taken 12/05/22] vibegron 75 mg tablet (Gemtesa) 75 mg PO DAILY 12/06/22 [History Last Taken 12/05/22] Allergy/AdvReac Type Severity Reaction Status Date / Time codeine Allergy Hives Verified 10/10/22 09:56 prochlorperazine edisylate Allergy Swelling Verified 12/06/22 13:36 [From Compazine] prochlorperazine maleate Allergy Swelling Verified 12/06/22 13:36 [From Compazine] Family History Other Alcohol abuse Cancer Heart disease Hypertension Mental disorder Surgical History Hx of tonsillectomy Social History Smoking Status: Never smoker alcohol intake: never substance use type: does not use caffeine: Yes Type: coffee what type of physical activity do you participate in: none ROS ROS ED Constitutional Constitutional ED: Reports chills and fever(s); Denies sweats Eyes Eyes: Denies change in vision ENT ENT ED: Denies dysphagia or sore throat Cardiovascular Cardiovascular: Denies chest pain, leg edema, palpitations or racing heartbeat Respiratory/Chest Respiratory/Chest: Reports cough and dyspnea; Denies dyspnea on exertion Gastrointestinal Gastrointestinal: Denies abdominal pain, diarrhea, nausea or vomiting Genitourinary Genitourinary ED: Denies dysuria, hematuria or urinary frequency Musculoskeletal Musculoskeletal: Denies back pain, extremity pain or neck pain Integumentary Denies rash or wounds Neurologic Neurologic: Denies headache(s), paresthesias or weakness EXAM Physical Exam Const Vital Signs: 12/06/22 13:40 12/06/22 13:49 12/06/22 14:04 Temperature 103.2 F H Temperature Source Oral Pulse Rate 110 H Respiratory Rate 20 H Respiratory Effort Short of Breath Respiratory Depth Normal Respiratory Pattern Normal Blood Pressure 126/66 H Blood Pressure Mean 86 Pulse Ox 99 97 Oxygen Delivery Method High Flow High Flow High Flow Oxygen Flow Rate (L/min) 9 9 8 12/06/22 15:32 12/06/22 15:30 12/06/22 15:30 Temperature 100.7 F H Temperature Source Oral Pulse Rate 109 H 112 H Respiratory Rate 25 H 26 H Respiratory Effort Respiratory Depth Respiratory Pattern Blood Pressure 168/110 H Blood Pressure Mean 129 Pulse Ox 98 97 Oxygen Delivery Method High Flow High Flow Oxygen Flow Rate (L/min) 8 5 12/06/22 15:42 12/06/22 16:42 Temperature Temperature Source Pulse Rate 101 H Respiratory Rate 20 H Respiratory Effort Respiratory Depth Respiratory Pattern Blood Pressure 121/74 H Blood Pressure Mean 89 Pulse Ox 94 94 Oxygen Delivery Method Nasal Cannula Nasal Cannula Oxygen Flow Rate (L/min) 3 3 Positive well nourished and well developed Constitutional Narrative: Hi flow oxygen at 9 L pulse ox up to 99, no respiratory distress General Appearance ED: well developed and NAD HEENT Reports moist mucous membranes normocephalic and atraumatic Eyes PERRL, EOMs intact bilaterally and conjunctivae normal General Eye ED: Yes normal appearance of both eyes Neck no lymphadenopathy and supple General: Negative for tenderness Chest Wall Chest Narrative: Excoriations under bilateral breasts there is no fluctuance no abscess. Chest: Negative for tenderness Resp Resp Narrative: Diminished breath sounds in the bases no rales or. Effort and Inspection: symmetric chest movement; Negative for respiratory distress Cardio regular rhythm and no murmurs Rate: tachycardic Peripheral Pulses: pulses 2+ throughout GI normal to inspection, nondistended, normoactive bowel sounds and non-tender Palpation: Negative for guarding or rebound tenderness present Back/Spine no CVA tenderness and no thoracic nor lumbar tenderness Extremity normal to inspection Extremity Narrative: Pulses intact x4. General Extremety ED: Negative for edema or tenderness General Extremity: Negative for edema Neuro oriented x3, CN's II-XII intact bilaterally and no sensory deficits noted Sensorium / Orientation: awake and alert Skin no rashes or lesions noted and no wounds Skin Narrative: Warm to palpation Sepsis Attestation Sepsis Alert: Yes Sepsis Attestation: Agree w/Sepsis Date exam was performed: 12/06/22 Time exam was performed: 15:00 Possible Source of Sepsis: Unknown Sepsis Organ Dysfunction Criteria Present: Creatinine > 2.0 mg/dL Fluid Resuscitation Fluid Resuscitation ordered: Fluids not indicated Sepsis Note Date exam was performed: 12/06/22 Time exam was performed: 16:45 Sepsis Attestation: Sepsis re-evaluation was performed MDM MDM MDM Narrative Medical decision making narrative: Interventions / MDM: Differential diagnosis: Sepsis, pneumonia, hypoxia,pulmonary embolism Diagnosis considered but do not suspect: N/A My EKG interpretation: Sinus rate of 116, no ST or T wave changes. QTc 472 Imaging independently reviewed and interpreted by myself: Chest x-ray: No acute process also read by radiology. Bilateral lower extremity DVT studies negative. External documents reviewed: N/A Test considered but not ordered:N/A ED course: Patient febrile, tachycardic, sepsis protocol initiated. She given Tylenol. Maintain on high flow oxygen. Chest x-ray negative. Cath urine also negative. COVID and flu negative. Patient reevaluate increasing wheezing additional aerosol treatments was given. ABG ordered. White count 8.3 hemoglobin 12.5 negative. Creatinine up at 2.17 with GFR of 25. Sodium 132. With her GFR unable to CTA of her chest. With her wheelchair-bound status ultrasound legs were obtained and negative. Unclear reason for hypoxia at this time. With her fever unclear diagnosis Zofran and vancomycin started. She has excoriation on her breast. Will discuss with hospital team for admission. Will discuss heparin drip. ABG obtained: pH 7.39, PaO2 70 PCO2 45 this is on 5 L high flow oxygen. 1620: I evaluated with nursing patient is back and bottle, no erythema no abscess. 1640: I spoke with Dr. Faustin, discussed the history agrees with the respiratory panel sending. We will add a D-dimer and if elevated he will start heparin drip and get a VQ scan. Patient will be admitted to PCU for further management. Re-evaluation: fair Disposition discussed with patient/family/significant other: patient Case discussed with consulting clinician: Hospitalist This note was generated with Pager dictation software. It may contain incorrect words, spelling, and punctuation that were not noted in checking the note before signing. Lab Data Attestation: I reviewed the patient's lab results. Labs: Laboratory Results - last 24 hr 12/06/22 12/06/22 14:25 15:05 WBC 8.3 RBC 5.06 Hgb 12.5 Hct 39.7 MCV 78.5 L MCH 24.7 L MCHC 31.5 L RDW Std Deviation 47.5 H RDW Coeff of Doris 16.8 H Plt Count 136 L MPV 8.6 Immature Gran % (Auto) 0.500 Neut % (Auto) 78.1 H Lymph % (Auto) 14.6 L [place] % (Auto) 5.9 Eos % (Auto) 0.4 Baso % (Auto) 0.5 Absolute Neuts (auto) 6.5 Absolute Lymphs (auto) 1.21 Nucleated RBC % 0 PT 13.7 INR 1.1 APTT 27.6 Sodium 132 L Potassium 4.9 Chloride 97 L Carbon Dioxide 29.0 Anion Gap 6 BUN 42 H Creatinine 2.17 H Estim Creat Clear Calc 51.18 Est GFR (MDRD) Af Amer 30 L Est GFR (MDRD) Non-Af 25 L BUN/Creatinine Ratio 19.4 Glucose 76 Lactic Acid 1.7 Calcium 9.6 Total Bilirubin 0.30 AST 34 ALT 26 Alkaline Phosphatase 81 Total Protein 8.0 Albumin 3.3 Globulin 4.7 H Albumin/Globulin Ratio 0.7 L Procalcitonin 0.18 H Urine Color Yellow Urine Clarity Clear Urine pH 5.0 Ur Specific [place] 1.010 Urine Protein 100 H Urine Glucose (UA) Normal Urine Ketones Negative Urine Occult Blood Negative Urine Nitrite Negative Urine Bilirubin Negative Urine Urobilinogen Normal Ur Leukocyte Esterase Negative Urine RBC 0 SEEN Urine WBC 0 SEEN Ur Squamous Epith Cells 0 SEEN Urine Bacteria 0 SEEN Urine Mucus 0 SEEN ABG Data ABG results: ABG 12/06/22 12/06/22 15:44 16:00 Specimen Type Cancelled ART Sample Site Cancelled L Radial pH 7.40 Bicarbonate Actual 28.0 H Total CO2 29 Base Excess 3 H O2 Saturation 94 L O2 % Cancelled ABG pCO2 45.6 H ABG pO2 71 L [place] Test Positive VBG pH Cancelled VBG pH (Temp Correct) Cancelled VBG pCO2 (Temp Corrct Cancelled VBG pO2 Cancelled VBG HCO3 Cancelled VBG Total CO2 Cancelled VBG O2 Sat (Calc) Cancelled VBG Base Excess Cancelled POC Mix VBG pCO2 Pt Tmp Cancelled Respiration Rate Cancelled O2 Delivery Device Cancelled Cannula Liter Flow Cancelled 3.0 Minute Volume Cancelled Inspiratory Time Cancelled Expiratory Time Cancelled Tidal Volume Cancelled Mean Airway Pressure Cancelled POC PEEP Cancelled Peak Inspir Pressure Cancelled POC Pressure Suppt Cancelled Pressure Control Cancelled EPAP Cancelled IPAP Cancelled Blood Gas Comments Cancelled Crit Call To/Read Back Cancelled Blood Gas Notified Whom Cancelled Blood Gas Notified Time Cancelled Clinical Comments Cancelled Radiography Diagnostic Testing: Clinical Impression(s) from Imaging Studies Chest X-Ray 12/06/22 14:08 IMPRESSION: Normal x-ray examination of the chest. Electronically Signed: Man Kauffman MD at 14:18 EDT , Venous Doppler Study 12/06/22 15:01 Interpretation Summary No evidence for acute deep venous thrombosis bilateral lower extremities with patent and compressible bilateral great saphenous veins. Ordering Physician: Phillip Mckenzie Performed By: Eva Toledo RVT Critical Care Time Critical Care Time: Yes Critical care time (excluding procedures): 30-74 minutes, Discussing w/Patient &/or Family/Publicity Agent, Discussing w/Consultants, Arranging Admission or Transfer, Performing Direct Patient Care at Bedside and - (40 minutes) Discharge Plan Dx/Rx/DC Orders Clinical Impression: Fever, unknown origin, Hypoxia, Acute on chronic renal insufficiency, Hyponatremia, Sepsis Disposition Disposition: Acute Care [facility]
--- NOTE | 2022-12-06 14:08 | RAD_ITS ---
STUDY: X-RAY CHEST REASON FOR EXAM: Female, 62 years old. Sob TECHNIQUE: Single AP portable view of the chest. COMPARISON: Comparison is made with prior study dated August 28, 2022. FINDINGS: EKG electrodes are seen. The lungs are clear and expanded. There is no demonstrated pleural abnormality. Normal size heart. Normal mediastinum and belem. Normal visualized pulmonary arteries. Normal visualized aortic arch and descending thoracic aorta. Normal visualized thoracic spine. Normal visualized ribs, clavicles, and shoulders. There is no demonstrated abnormality of the visualized soft tissue structures of the upper abdomen. RAD/Chest 1 View (Portable) IMPRESSION: Normal x-ray examination of the chest. Electronically Signed: Man Kauffman MD at 14:18 EDT ,
[2022-12-06 14:35] LABS: Absolute Lymphocyte Count 1.21 X10^3/uL (0.83-4.51); Absolute Neutrophil Count 6.5 X10^3/uL (2.0-7.7); Basophil# 0.04 X10^3/uL; Basophil% 0.5 % (0-1); Eosinophil# 0.03 X10^3/uL; Eosinophils% 0.4 % (0-5); Hematocrit 39.7 % (37-47); Hemoglobin 12.5 g/dL (12.0-15.0); Lymphocyte # 1.21 X10^3/ul (0.83-4.51); Lymphocyte % 14.6 % (19-41); Mean Corp Hgb Conc 31.5 g/dL (32-36); Mean Corpuscular Hgb 24.7 pg (27.0-32.0); Mean Corpuscular Volume 78.5 fL (81-99); Mean Platelet Vol. 8.6 fl (6.2-12.0); Monocyte# 0.49 X10^3/uL; Monocyte% 5.9 % (0-10); NRBC Flagged by Analyzer 0 % (0-5); Neutrophil # 6.45 X10^3/uL (2.7-7.7); Neutrophil % 78.1 % (47-70); Platelet Count 136 K/mm3 (150-450); RBC Distribution Width CV 16.8 % (11.6-14.6); RBC Distribution Width SD 47.5 fl (35.1-43.9); Red Blood Count 5.06 M/mm3 (4.2-5.4); White Blood Count 8.3 K/mm3 (4.4-11.0)
[2022-12-06] MEDS: Acetaminophen 500 MG Tablet 1000 MG PO (14:42)
[2022-12-06 14:53] LABS: International Normalized Ratio 1.1; Prothrombin Time (Protime)PT. 13.7 SECONDS (11.7-14.9)
[2022-12-06 14:54] LABS: Partial Thromboplast Time 27.6 Seconds (24.1-36.2)
[2022-12-06 14:57] LABS: ALB/GLOB Ratio 0.7 RATIO (0.9-2.4); AST(SGOT) 34 U/L (15-37); Alanine Aminotransfer ALT/SGPT 26 U/L (13-56); Albumin, Serum 3.3 g/dL (3.2-5.0); Alkaline Phosphatase 81 U/L (45-117); Anion Gap 6 (5-15); BUN 42 mg/dL (7-18); BUN/Creat Ratio 19.4 RATIO (10-20); Calcium,Total 9.6 mg/dL (8.5-10.1); Chloride 97 mmol/L (98-107); Creatinine, Serum 2.17 mg/dL (0.55-1.02); EST Glomerular Filtration Rate 25 mL/min (>60); Est Glom Filt Rate - Afr Amer 30 mL/min (>60); Estimated Creatinine Clearance 51.18 ml/min; Globulin 4.7 g/dL (2.2-4.2); Glucose 76 mg/dL (74-106); Potassium 4.9 mmol/L (3.5-5.1); Sodium Level 132 mmol/L (136-145)
--- NOTE | 2022-12-06 15:01 | VDLE_ITS ---
Reason For Study: Shortness of breath RIGHT LEFT GSV is normal. GSV is normal. CFV is compressible, spontaneous, phasic, CFV is compressible, spontaneous, phasic, competent and demonstrates normal competent, and demonstrates normal augmentation. augmentation. FV is compressible, spontaneous, phasic, FV is compressible, spontaneous, phasic, competent and demonstrates normal competent and demonstrates normal augmentation. augmentation. POP V is compressible, spontaneous, phasic, POP V is compressible, spontaneous, phasic, competent and demonstrates normal competent and demonstrates normal augmentation. augmentation. T/P Trunk is compressible. T/P Trunk is compressible. PTV is compressible. PTV is compressible. RT PerV is compressible. LT PerV is compressible. Procedure This is a venous duplex using B-mode, color flow and spectral Doppler. Exam performed portable in ED. A preliminary report was called and/or faxed to Dr. Mckenzie. VL/Venous Duplex US - Brad Extrem Interpretation Summary No evidence for acute deep venous thrombosis bilateral lower extremities with p atent and compressible bilateral great saphenous veins. Ordering Physician: Phillip Mckenzie Performed By: Eva Toledo RVT
[2022-12-06 15:06] LABS: Lactic Acid 1.7 mmol/L (0.4-1.9)
[2022-12-06 15:10] LABS: Procalcitonin 0.18 ng/mL (0.00-0.09)
[2022-12-06 15:12] LABS: Bacteria 0 SEEN /hpf (None Seen); Mucous, Urine 0 SEEN /hpf (<or=2+); Red Blood Cells-Urine 0 SEEN /hpf (0-5); Squamous Epithelial Cells - UA 0 SEEN /hpf (5-10); White Blood Cells 0 SEEN /hpf (0-5)
[2022-12-06 15:24] LABS: Color, Urine Yellow (Yellow); Glucose, Dipstick Normal (Normal); Ketone-Dipstick Negative (Negative); Leukocyte Esterase-Dipstick Negative /ul (Negative); Nitrite-Dipstick Negative (Negative); Occult Blood-Urine Negative /ul (Negative); Protein-Dipstick 100 mg/dl (Negative); Urine Bilirubin Dipstick Negative (Negative); Urine Clarity Clear (Clear); Urine Urobilinogen Normal (Normal)
[2022-12-06] MEDS: 0.9% Normal Saline 1,000 ML 999 ML IV (15:27)
[2022-12-06] MEDS: Ipratropium/Albuterol Sulfate 3 ML AMPUL.NEB INHALATION ×3 (15:27→23:15)
[2022-12-06 16:03] LABS: Allen Test Positive; Base Excess 3 mmol/L (-2 to +2); Blood Gas Specimen Type ART; O2 Delivery Device Cannula; PO2 71 mmHG (75-100); SITE L Radial; SO2 94 % (95-99); Total Carbon Dioxide 29 mmol/L; pCO2 45.6 mmHg (35-45)
--- NOTE | 2022-12-06 17:12 | PCM.HP.STD ---
HPI - General General Date of Admission: 12/06/22 HPI Narrative KELSI JENSEN, is a 62 F who presents to the hospital with new onset shortness of breath. She was recently admitted for what appeared to be a systolic CHF exacerbation and was discharged on no oxygen in August. Echo at that time with an EF of 40% and had a stress test in November with an EF of 52% and no ischemia. This new episode of shortness of breath has been going on for 24 hours and she says prior to that she was feeling fine. She did develop some fevers and chills denies a significant productive cough. In the ER she was noted to have some wheezing and maybe had slight improvement with an aerosol treatment. She is wheelchair-bound secondary to severe bilateral osteoarthritis of her knees. In the ER she was found to be tachycardic and, ABG demonstrated a PO2 of 71 mmHg while on 5 L nasal cannula, PCO2 was unremarkable. Creatinine is elevated but close to baseline. She does not have a white count but she did have a fever to 103.2 on arrival and at that time was needing about 9 L high flow this has subsequently been weaned down to 3 L nasal cannula. Given her renal function her GFR she can get a CTA of the chest however chest x-ray was unremarkable for consolidation. UA is also normal. And there is no significant signs of infection on the ED exam and she notes that she has some excoriation under bilateral breasts from a yeast infection. [facility] Medical History (Updated 12/06/22 @ 17:48 by Joslyn Jauregui) Abnormal echocardiogram Anxiety Chronic pain Depression Diabetes Diabetes mellitus Essential hypertension Former smoker Hepatitis Hepatitis C History of mental problems Hypertension Kidney stones Tonsillectomy planned Type 2 diabetes mellitus Home Medications doxepin 10 mg capsule 10 mg PO DAILY SLEEP 05/29/22 [History Last Taken 12/05/22] flash glucose scanning reader (Struq Jolie 2 [place]) #1 ea 05/29/22 [Rx Last Taken Unknown] gabapentin 300 mg capsule 300 mg PO DAILY 05/29/22 [History Last Taken 12/05/22] omeprazole 20 mg capsule,delayed release 20 mg PO DAILY GERD 05/29/22 [History Last Taken 12/05/22] sertraline 25 mg tablet 25 mg PO DAILY MOOD 05/29/22 [History Last Taken 12/05/22] simvastatin 20 mg tablet 20 mg PO QHS CHOLESTEROL 05/29/22 [History Last Taken 12/04/22] ziprasidone HCl 80 mg capsule 80 mg PO DAILY MOOD 05/29/22 [History Last Taken 12/03/22] amlodipine 5 mg tablet 5 mg PO DAILY #30 tabs 07/15/22 [Rx Last Taken 12/05/22] acetaminophen 325 mg tablet 650 mg PO BID PRN PAIN AND FEVER 08/28/22 [History Last Taken 08/27/22] ergocalciferol (vitamin D2) 1,250 mcg (50,000 unit) capsule (Drisdol) 1,250 mcg PO .BIW SUPPLEMENT 08/28/22 [History Last Taken 12/02/22] nystatin 100,000 unit/gram topical powder (Nystop) 1 applic topical BID SKIN 08/28/22 [History Last Taken Unknown] olanzapine 10 mg tablet 10 mg PO QHS MOOD 08/28/22 [History Last Taken 12/05/22] sertraline 100 mg tablet 100 mg PO QHS MOOD 08/28/22 [History Last Taken 12/05/22] furosemide 20 mg tablet 20 mg PO DAILY #30 tabs 08/31/22 [Rx Last Taken 12/05/22] lisinopril 5 mg tablet 5 mg PO DAILY #30 tabs 08/31/22 [Rx Last Taken 12/04/22] albuterol sulfate 90 mcg/actuation aerosol inhaler (Ventolin HFA) 2 puff inhalation Q4H PRN shortness of breath or wheezing 09/23/22 [History Last Taken Unknown] divalproex 125 mg tablet,delayed release 125 mg PO BID 09/23/22 [History Last Taken 12/05/22] flash glucose sensor (FreeStyle Jolie 2 Sensor kit) #2 ea 09/23/22 [Rx Last Taken Unknown] hydroxyzine HCl 25 mg tablet 25 mg PO TID Anxiety 09/23/22 [History Last Taken 12/05/22] insulin lispro 100 unit/mL subcutaneous pen 35 unit (0.35 mL) subcut TID DM #31.5 mL 10/31/22 [Rx Last Taken 12/05/22] HUMALOG KWIK PEN 100U/ML See Protocol DM 12/06/22 [History Last Taken 12/05/22] docusate sodium 100 mg capsule (Colace) 100 mg PO BID 12/06/22 [History Last Taken 12/05/22] fesoterodine 8 mg tablet,extended release 24 hr (Toviaz) 8 mg PO DAILY 12/06/22 [History Last Taken 12/05/22] insulin glargine 100 unit/mL (3 mL) subcutaneous pen (Lantus Solostar U-100 Insulin) 55 unit subcut QHS 12/06/22 [History Last Taken 12/05/22] polyethylene glycol 3350 17 gram/dose oral powder (Miralax) 17 g PO DAILY 12/06/22 [History Last Taken 12/05/22] vibegron 75 mg tablet (Gemtesa) 75 mg PO DAILY 12/06/22 [History Last Taken 12/05/22] Allergy/AdvReac Type Severity Reaction Status Date / Time codeine Allergy Hives Verified 12/06/22 17:55 prochlorperazine edisylate Allergy Swelling Verified 12/06/22 17:55 [From Compazine] prochlorperazine maleate Allergy Swelling Verified 12/06/22 17:55 [From Compazine] Family History Other Alcohol abuse Cancer Heart disease Hypertension Mental disorder Surgical History Hx of tonsillectomy Social History Smoking Status: Never smoker alcohol intake: never substance use type: does not use caffeine: Yes Type: coffee what type of physical activity do you participate in: none ROS Constitutional Constitutional: Reports chills and fever(s); Denies fatigue or malaise Eyes Eyes: Denies blurry vision ENT HEENT: Denies headache(s) or nasal discharge Cardiovascular Cardiovascular: Denies chest pain, dyspnea on exertion or syncope Respiratory/Chest Respiratory/Chest: Reports cough and shortness of breath at rest; Denies productive cough or shortness of breath with exertion Gastrointestinal Gastrointestinal: Denies constipation, diarrhea, nausea or vomiting Genitourinary Genitourinary: Denies dysuria Neurologic Neurologic: Denies focal weakness, numbness or tremor(s) Psychiatric Psychiatric: Denies anxiety or depression Vital Signs Vital Signs Vital Signs: 12/06/22 13:40 12/06/22 13:49 12/06/22 14:04 Temperature 103.2 F H Temperature Source Oral Pulse Rate 110 H Respiratory Rate 20 H Respiratory Effort Short of Breath Respiratory Depth Normal Respiratory Pattern Normal Blood Pressure 126/66 H Blood Pressure Mean 86 Pulse Ox 99 97 Oxygen Delivery Method High Flow High Flow High Flow Oxygen Flow Rate (L/min) 9 9 8 12/06/22 15:32 12/06/22 15:30 12/06/22 15:30 Temperature 100.7 F H Temperature Source Oral Pulse Rate 109 H 112 H Respiratory Rate 25 H 26 H Respiratory Effort Respiratory Depth Respiratory Pattern Blood Pressure 168/110 H Blood Pressure Mean 129 Pulse Ox 98 97 Oxygen Delivery Method High Flow High Flow Oxygen Flow Rate (L/min) 8 5 12/06/22 15:42 12/06/22 16:42 12/06/22 16:41 Temperature 98.6 F Temperature Source Oral Pulse Rate 101 H 100 Respiratory Rate 20 H 20 H Respiratory Effort Respiratory Depth Respiratory Pattern Blood Pressure 121/74 H 100/59 L Blood Pressure Mean 89 72 Pulse Ox 94 94 94 Oxygen Delivery Method Nasal Cannula Nasal Cannula Nasal Cannula Oxygen Flow Rate (L/min) 3 3 3 Weight Weight: 259 lb 4.218 oz Body Mass Index (BMI) 52.3 Physical Exam Narrative General: Alert, Oriented x3, Cooperative, moderate respiratory distress HEENT: Atraumatic, PERRLA, EOMI, Normocephalic Oral: Moist Mucosa Neck: Supple, No JVD Lungs: Diminished, Normal air movement, No rhonchi, wheeze, No rales, tachypneic Cardiovascular: Tachycardic, Regular Rhythm, Normal S1, Normal S2, No murmurs Abdomen: Soft, Non Tender, Non-Distended, No Hepato-splenomegaly Extremities: Edema, Capillary Refill Less than 3 Seconds Skin: No rashes, No breakdown Musculoskeletal: No Tenderness to Palpation of Joints or Extremities Neurological: Moves all extremities, Sensory exam intact to light touch and pain Psych/Mental Status: Flat affect Results Lab / Micro Data 12/06/22 14:25 12/06/22 14:25 Labs: Laboratory Results - last 24 hr 12/06/22 14:25: WBC 8.3, RBC 5.06, Hgb 12.5, Hct 39.7, MCV 78.5 L, MCH 24.7 L, MCHC 31.5 L, RDW Std Deviation 47.5 H, RDW Coeff of Doris 16.8 H, Plt Count 136 L, MPV 8.6, Immature Gran % (Auto) 0.500, Neut % (Auto) 78.1 H, Lymph % (Auto) 14.6 L, [place] % (Auto) 5.9, Eos % (Auto) 0.4, Baso % (Auto) 0.5, Absolute Neuts (auto) 6.5, Absolute Lymphs (auto) 1.21, Nucleated RBC % 0, PT 13.7, INR 1.1, APTT 27.6, Sodium 132 L, Potassium 4.9, Chloride 97 L, Carbon Dioxide 29.0, Anion Gap 6, BUN 42 H, Creatinine 2.17 H, Estim Creat Clear Calc 51.18, Est GFR (MDRD) Af Amer 30 L, Est GFR (MDRD) Non-Af 25 L, BUN/Creatinine Ratio 19.4, Glucose 76, Lactic Acid 1.7, Calcium 9.6, Total Bilirubin 0.30, AST 34, ALT 26, Alkaline Phosphatase 81, Total Protein 8.0, Albumin 3.3, Globulin 4.7 H, Albumin/Globulin Ratio 0.7 L, Procalcitonin 0.18 H 12/06/22 15:05: Urine Color Yellow, Urine Clarity Clear, Urine pH 5.0, Ur Specific [place] 1.010, Urine Protein 100 H, Urine Glucose (UA) Normal, Urine Ketones Negative, Urine Occult Blood Negative, Urine Nitrite Negative, Urine Bilirubin Negative, Urine Urobilinogen Normal, Ur Leukocyte Esterase Negative, Urine RBC 0 SEEN, Urine WBC 0 SEEN, Ur Squamous Epith Cells 0 SEEN, Urine Bacteria 0 SEEN, Urine Mucus 0 SEEN Micro: Microbiology 12/06/22 14:45 Nasal Secretion SARS-CoV-2 & FLU Antigen (Rapid) - Final ABG Data ABG results: ABG 12/06/22 12/06/22 15:44 16:00 Specimen Type Cancelled ART Sample Site Cancelled L Radial pH 7.40 Bicarbonate Actual 28.0 H Total CO2 29 Base Excess 3 H O2 Saturation 94 L O2 % Cancelled ABG pCO2 45.6 H ABG pO2 71 L Vickey Test Positive VBG pH Cancelled VBG pH (Temp Correct) Cancelled VBG pCO2 (Temp Corrct Cancelled VBG pO2 Cancelled VBG HCO3 Cancelled VBG Total CO2 Cancelled VBG O2 Sat (Calc) Cancelled VBG Base Excess Cancelled POC Mix VBG pCO2 Pt Tmp Cancelled Respiration Rate Cancelled O2 Delivery Device Cancelled Cannula Liter Flow Cancelled 3.0 Minute Volume Cancelled Inspiratory Time Cancelled Expiratory Time Cancelled Tidal Volume Cancelled Mean Airway Pressure Cancelled POC PEEP Cancelled Peak Inspir Pressure Cancelled POC Pressure Suppt Cancelled Pressure Control Cancelled EPAP Cancelled IPAP Cancelled Blood Gas Comments Cancelled Crit Call To/Read Back Cancelled Blood Gas Notified Whom Cancelled Blood Gas Notified Time Cancelled Clinical Comments Cancelled Radiology Impression Chest X-Ray 12/06/22 14:08 IMPRESSION: Normal x-ray examination of the chest. Electronically Signed: Man Kauffman MD at 14:18 EDT Reading Location ID and State: [facility] / [place] , Service support , Venous Doppler Study 12/06/22 15:01 Interpretation Summary No evidence for acute deep venous thrombosis bilateral lower extremities with patent and compressible bilateral great saphenous veins. Ordering Physician: Phillip Mckenzie Performed By: Eva Toledo RVT Assessment & Plan Assessment/Plan (1) Fever, unknown origin: (2) Acute hypoxemic respiratory failure: PLAN: Plan 1. Acute hypoxic respiratory failure unknown etiology ? She does have a fever but no white count unclear as to source of possible infection UA was unremarkable ? Urine culture and blood cultures are pending ? COVID and flu antigens were negative however respiratory panel is pending given that she lives in an assisted living ? She denies any sick contacts ? Continue with oxygen via nasal cannula we will given her wheezing we will place her on breathing treatments and steroids, she denies a history of COPD but does have a history of smoking and she quit 4 years ago ? Continue with broad-spectrum antibiotics at this time can adjust 48 hours based on culture data ? We will hold any IV fluids we will monitor renal function closely ? Doppler in the ER was negative for any blood clots and she denies any abnormal swelling, D-dimer was elevated to 0.99, will start her on heparin drip and order a VQ scan since the chest x-ray was clear 2. HTN/HLD/chronic systolic CHF ? Blood pressures are stable ? Can continue with her home blood pressure medications ? Recent echo with an EF of 40 to 45% and a stress test with an EF of 52% that did not demonstrate any ischemia earlier this month ? Continue with statin as well as PO Lasix 3. DM2/CKD 3B ? This is uncontrolled last A1c in 2021 was 9.7 ? We will continue with her long-acting insulin ? Accu-Cheks ACHS with sliding scale insulin ? We will make adjustments as necessary ?Renal function is close to baseline, will continue to monitor 4. Anxiety/depression versus other mood disorder ? Stable ? We will continue with her home medications DVT: Heparin gtt 76 minutes was spent on direct patient care as well as chart review, documentation and collaboration with colleagues Charges/Coding Visit Charges Inpatient E&M: 83931 Init Hosp L3
[2022-12-06 17:34] LABS: D-Dimer Quantitative (DVT/PE) 0.99 FEU/ug/m (0.27-0.49)
[2022-12-06 18:25] LABS: BNP,B-Type NATRIURETIC PEPTIDE 43.9 pg/mL (0-100)
--- NOTE | 2022-12-06 18:39 | PCM.RX.CS ---
Consult Antibiotic Management Pharmacy has been consulted to manage selected antiobiotic: Vancomycin Type of Intervention Type of Consult: New start Suspected Infection Suspected Infection: Pneumonia Labs Labs: Sodium 132 mmol/L (136-145) L 12/06/22 14:25 Potassium 4.9 mmol/L (3.5-5.1) 12/06/22 14:25 Chloride 97 mmol/L (98-107) L 12/06/22 14:25 Carbon Dioxide 29.0 mmol/L (21.0-32.0) 12/06/22 14:25 Anion Gap 6 (5-15) 12/06/22 14:25 BUN 42 mg/dL (7-18) H 12/06/22 14:25 Creatinine 2.17 mg/dL (0.55-1.02) H 12/06/22 14:25 Est GFR (MDRD) Af Amer 30 mL/min (>60) L 12/06/22 14:25 Est GFR (MDRD) Non-Af 25 mL/min (>60) L 12/06/22 14:25 BUN/Creatinine Ratio 19.4 RATIO (10-20) 12/06/22 14:25 Glucose 76 mg/dL (74-106) 12/06/22 14:25 Microbiology Microbiology: Microbiology 12/06/22 14:45 Nasal Secretion SARS-CoV-2 & FLU Antigen (Rapid) - Final Goal Trough Goal Trough: 15-20 mcg/mL Pharmacy Plan for Drug Dosing Pharmacy Plan for Drug Dosing: NEW START IV VANCOMYCIN Consulting Physician: FRANK Indication: PNEUMONIA Goal Trough: 15-20 MG/DL SrCr: 2.17 MG/DL CrCl: 31.7 ML/MIN (USING ADJ BW) Comments: PT RECEIVED ER LOADING DOSE OF 2000MG 12/06 @ 1637 Vancomycin Dose: WILL START 1500MG Q24H AND GET A TROUGH PRIOR TO 3RD DOSE PER POLICY. Pending Level: 12/08/22 @ 1630 Pharmacy Service will continue to monitor and adjust dosing as required.
[2022-12-06] MEDS: HEPARIN/D5w 25,000 UNITS 25,000 UNITS/250 ML IV.SOLN. 10 UNITS CONT INF (19:02)
[2022-12-06] MEDS: Heparin Injection (Vial) 5,000 UNIT/ML VIAL 4000 UNIT IV (19:04)
[2022-12-06 21:11] LABS: Bedside Glucose 159 mg/dL (74-106)
[2022-12-06] MEDS: Atorvastatin Calcium 10 MG Tablet PO (21:47)
[2022-12-06] MEDS: Docusate Sodium 100 MG Capsule PO (21:47)
[2022-12-06] MEDS: Divalproex Sodium 125 MG Tablet PO (21:47)
[2022-12-06] MEDS: hydrOXYzine PAM 25 MG Capsule PO (21:48)
[2022-12-06] MEDS: OLANZapine 10 MG Tablet PO (21:48)
[2022-12-06] MEDS: Nystatin Powder 15gm Bottle 1 APPLIC TOPICAL (21:48)
[2022-12-06] MEDS: Sertraline 100 MG Tablet PO (21:48)
[2022-12-06] MEDS: Insulin Glargine-YFGN 100 UNIT/ML Pen 55 UNIT SC (22:03)
[2022-12-06] MEDS: Insulin Lispro 100 UNIT/ML INSULN.PEN SC (22:09)
[2022-12-06 23:24] LABS: Bedside Glucose 179 mg/dL (74-106)
[2022-12-07] VITALS (16 sets, daily range): BP systolic 94–132; BP diastolic 60–82; PULSE 86–104; RESP 19–24; TEMP 36.6–37.1; O2SAT 92–97
[2022-12-07 02:03] LABS: Partial Thromboplast Time 90.6 Seconds (24.1-36.2)
[2022-12-07] MEDS: Albuterol 2.5 MG/3 ML VIAL.NEB. INHALATION (04:21)
[2022-12-07] MEDS: hydrOXYzine PAM 25 MG Capsule PO ×3 (05:11→22:54)
--- NOTE | 2022-12-07 05:55 | NM_ITS ---
INDICATION: Elevated D-dimer with hypoxia EXAMINATION: NUCLEAR MEDICINE VQ SCAN - NM Pulmonary Ventilation Perfusion Imaging TECHNIQUE: Routine VQ scan protocol was performed using 58 mCi Tc-99m DTPA aerosol and 4.8 mCi intravenous Technetium 99m MAA. COMPARISON: Chest x-ray of the same day. FINDINGS: Somewhat heterogeneous uptake. Questionable small perfusion defect seen only on the lateral projection in the region of the superior segment of the left lower lobe however it appears to be matched with ventilation scan. No mismatched defects are identified. NM/Quant Lung Vent/Perf Scan IMPRESSION: Low probability for pulmonary embolism. Electronically Signed: Alberto Davis MD at 12:31 EDT ,
[2022-12-07] MEDS: Insulin Lispro 100 UNIT/ML INSULN.PEN SC ×4 (06:23→22:55)
[2022-12-07 06:29] LABS: Absolute Lymphocyte Count 2.49 X10^3/uL (0.83-4.51); Absolute Neutrophil Count 3.2 X10^3/uL (2.0-7.7); Basophil# 0.03 X10^3/uL; Basophil% 0.5 % (0-1); Eosinophil# 0.08 X10^3/uL; Eosinophils% 1.2 % (0-5); Hematocrit 34.2 % (37-47); Hemoglobin 10.6 g/dL (12.0-15.0); Lymphocyte # 2.49 X10^3/ul (0.83-4.51); Lymphocyte % 37.7 % (19-41); Mean Corpuscular Hgb 24.9 pg (27.0-32.0); Mean Corpuscular Volume 80.5 fL (81-99); Mean Platelet Vol. 8.9 fl (6.2-12.0); Monocyte# 0.77 X10^3/uL; Monocyte% 11.6 % (0-10); NRBC Flagged by Analyzer 0 % (0-5); Neutrophil # 3.22 X10^3/uL (2.7-7.7); Neutrophil % 48.7 % (47-70); Platelet Count 113 K/mm3 (150-450); RBC Distribution Width CV 17.2 % (11.6-14.6); RBC Distribution Width SD 50.3 fl (35.1-43.9); Red Blood Count 4.25 M/mm3 (4.2-5.4); White Blood Count 6.6 K/mm3 (4.4-11.0)
[2022-12-07] MEDS: Ipratropium/Albuterol Sulfate 3 ML AMPUL.NEB INHALATION ×4 (06:57→23:34)
[2022-12-07 07:14] LABS: Anion Gap 6 (5-15); BUN 48 mg/dL (7-18); Calcium,Total 8.4 mg/dL (8.5-10.1); Chloride 100 mmol/L (98-107); EST Glomerular Filtration Rate 22 mL/min (>60); Est Glom Filt Rate - Afr Amer 27 mL/min (>60); Estimated Creatinine Clearance 45.61 ml/min; Glucose 160 mg/dL (74-106); Potassium 4.8 mmol/L (3.5-5.1); Sodium Level 132 mmol/L (136-145)
[2022-12-07 07:35] LABS: Bedside Glucose 172 mg/dL (74-106)
[2022-12-07] MEDS: Divalproex Sodium 125 MG Tablet PO ×2 (08:55→22:54)
[2022-12-07] MEDS: Ziprasidone HCl 20 MG Capsule 80 MG PO (08:55)
[2022-12-07] MEDS: predniSONE 20 MG Tablet 40 MG PO (08:55)
[2022-12-07] MEDS: Docusate Sodium 100 MG Capsule PO ×2 (08:55→22:54)
[2022-12-07] MEDS: Polyethylene Glycol 3350 17 GM PACKET PO (08:56)
[2022-12-07] MEDS: Pantoprazole Sodium 20 MG Tablet PO (08:56)
[2022-12-07] MEDS: guaiFENesin 600 MG Tablet PO ×2 (08:56→22:56)
[2022-12-07] MEDS: Doxepin Hydrochloride 10 MG Capsule PO (08:57)
[2022-12-07] MEDS: Sertraline 50 MG Tablet 25 MG PO (08:57)
[2022-12-07] MEDS: Furosemide 20 MG Tablet PO (08:58)
[2022-12-07] MEDS: Nystatin Powder 15gm Bottle 1 APPLIC TOPICAL ×2 (08:58→22:54)
[2022-12-07] MEDS: amLODIPine 5 MG Tablet PO (09:00)
[2022-12-07] MEDS: Lisinopril 5 MG Tablet PO (09:01)
[2022-12-07 09:18] LABS: Partial Thromboplast Time 72.8 Seconds (24.1-36.2)
--- NOTE | 2022-12-07 09:28 | PN.HOSP_ITS ---
Reason for Visit Reason for Visit: Diagnoses Acute respiratory failure with hypoxia (12/06/22) Fever, unspecified (12/06/22) Subjective Subjective Patient reports sore throat and dry cough, shortness of breath roughly the same or possibly very slightly better Objective Data Objective Data Vital Signs: Vital Signs Temp Pulse Resp BP Pulse Ox O2 Del Method O2 Flow Rate 98.5 F 103 H 20 H 128/77 H 97 Nasal Cannula 3 12/07/22 09:02 12/07/22 09:02 12/07/22 09:02 12/07/22 09:02 12/07/22 09:02 12/07/22 09:02 12/07/22 09:02 Oxygen Flow Rate (L/min) 3 Oxygen Delivery Method Nasal Cannula Weight: 115.9 kg Body Mass Index (BMI) 51.6 Intake & Output: Intake and Output for Last 24 Hours 12/05/22 12/06/22 12/07/22 23:59 23:59 23:59 Intake Total 2089 121 / 121 Output Total 0 / 0 Balance 2089 121 121 Lab / Micro Data 12/07/22 05:57 12/07/22 05:57 Labs: Laboratory Results - last 24 hr 12/06/22 14:25: WBC 8.3, RBC 5.06, Hgb 12.5, Hct 39.7, MCV 78.5 L, MCH 24.7 L, MCHC 31.5 L, RDW Std Deviation 47.5 H, RDW Coeff of Doris 16.8 H, Plt Count 136 L, MPV 8.6, Immature Gran % (Auto) 0.500, Neut % (Auto) 78.1 H, Lymph % (Auto) 14.6 L, [place] % (Auto) 5.9, Eos % (Auto) 0.4, Baso % (Auto) 0.5, Absolute Neuts (auto) 6.5, Absolute Lymphs (auto) 1.21, Nucleated RBC % 0, PT 13.7, INR 1.1, APTT 27.6, D-Dimer Quant (PE/DVT) 0.99 H*, Sodium 132 L, Potassium 4.9, Chloride 97 L , Carbon Dioxide 29.0, Anion Gap 6, BUN 42 H, Creatinine 2.17 H, Estim Creat Clear Calc 51.18, Est GFR (MDRD) Af Amer 30 L, Est GFR (MDRD) Non-Af 25 L, BUN/Creatinine Ratio 19.4, Glucose 76, Lactic Acid 1.7, Calcium 9.6, Total Bilirubin 0.30, AST 34, ALT 26, Alkaline Phosphatase 81, B-Natriuretic Peptide 43.9, Total Protein 8.0, Albumin 3.3, Globulin 4.7 H, Albumin/Globulin Ratio 0.7 L, Procalcitonin 0.18 H 12/06/22 15:05: Urine Color Yellow, Urine Clarity Clear, Urine pH 5.0, Ur Specific [place] 1.010, Urine Protein 100 H, Urine Glucose (UA) Normal, Urine Ketones Negative, Urine Occult Blood Negative, Urine Nitrite Negative, Urine Bilirubin Negative, Urine Urobilinogen Normal, Ur Leukocyte Esterase Negative, Urine RBC 0 SEEN, Urine WBC 0 SEEN, Ur Squamous Epith Cells 0 SEEN, Urine Bacteria 0 SEEN, Urine Mucus 0 SEEN 12/06/22 19:16: POC Glucose 159 H 12/06/22 22:03: POC Glucose 179 H 12/07/22 01:00: APTT 90.6 H* 12/07/22 05:57: WBC 6.6, RBC 4.25, Hgb 10.6 L, Hct 34.2 L, MCV 80.5 L, MCH 24.9 L, MCHC 31.0 L, RDW Std Deviation 50.3 H, RDW Coeff of Doris 17.2 H, Plt Count 113 L, MPV 8.9, Immature Gran % (Auto) 0.300, Neut % (Auto) 48.7, Lymph % (Auto) 37.7, [place] % (Auto) 11.6 H, Eos % (Auto) 1.2, Baso % (Auto) 0.5, Absolute Neuts (auto) 3.2, Absolute Lymphs (auto) 2.49, Nucleated RBC % 0, Sodium 132 L, Potassium 4.8, Chloride 100, Carbon Dioxide 26.0, Anion Gap 6, BUN 48 H, Creatinine 2.40 H, Estim Creat Clear Calc 45.61, Est GFR (MDRD) Af Amer 27 L, Est GFR (MDRD) Non-Af 22 L, BUN/Creatinine Ratio 20.0, Glucose 160 H, Calcium 8.4 L 12/07/22 06:22: POC Glucose 172 H 12/07/22 07:43: APTT Cancelled 12/07/22 08:40: APTT 72.8 H Micro: Microbiology 12/06/22 15:05 Urine, Catheterized Urine Culture - Preliminary Culture exhibits no growth. 12/06/22 19:30 Mucosa - Nasopharyngeal Respiratory Panel (PCR) - Final Parainfluenza 3 12/06/22 14:45 Nasal Secretion SARS-CoV-2 & FLU Antigen (Rapid) - Final ABG Data ABG results: ABG 12/06/22 12/06/22 15:44 16:00 Specimen Type Cancelled ART Sample Site Cancelled L Radial pH 7.40 Bicarbonate Actual 28.0 H Total CO2 29 Base Excess 3 H O2 Saturation 94 L O2 % Cancelled ABG pCO2 45.6 H ABG pO2 71 L Vickey Test Positive VBG pH Cancelled VBG pH (Temp Correct) Cancelled VBG pCO2 (Temp Corrct Cancelled VBG pO2 Cancelled VBG HCO3 Cancelled VBG Total CO2 Cancelled VBG O2 Sat (Calc) Cancelled VBG Base Excess Cancelled POC Mix VBG pCO2 Pt Tmp Cancelled Respiration Rate Cancelled O2 Delivery Device Cancelled Cannula Liter Flow Cancelled 3.0 Minute Volume Cancelled Inspiratory Time Cancelled Expiratory Time Cancelled Tidal Volume Cancelled Mean Airway Pressure Cancelled POC PEEP Cancelled Peak Inspir Pressure Cancelled POC Pressure Suppt Cancelled Pressure Control Cancelled EPAP Cancelled IPAP Cancelled Blood Gas Comments Cancelled Crit Call To/Read Back Cancelled Blood Gas Notified Whom Cancelled Blood Gas Notified Time Cancelled Clinical Comments Cancelled Radiography Diagnostic Testing: Radiology Impression Chest X-Ray 12/06/22 14:08 IMPRESSION: Normal x-ray examination of the chest. Electronically Signed: Man Kauffman MD at 14:18 EDT , Venous Doppler Study 12/06/22 15:01 Interpretation Summary No evidence for acute deep venous thrombosis bilateral lower extremities with patent and compressible bilateral great saphenous veins. Ordering Physician: Phillip Mckenzie Performed By: Eva Toledo RVT Physical Exam Narrative General: Alert, oriented, no apparent distress HEENT: Atraumatic, normocephalic Eyes: Anicteric, normal conjunctiva, extraocular movements grossly intact Neck: Supple Respiratory: Somewhat coarse, scattered wheezes, slight increased respiratory effort Cardiovascular: Regular rate and rhythm GI: Soft, nontender, nondistended Extremities: No significant edema Musculoskeletal: Moving all extremities Neuro: No overt focal neurological deficits Skin: No rashes appreciated Psych: Cooperative Assessment & Plan Assessment/Plan (1) Fever, unknown origin: (2) Acute hypoxemic respiratory failure: PLAN: Plan #Acute hypoxic respiratory failure secondary to parainfluenza -Was febrile on admission and ABG demonstrated PO2 of 71 on 3 L of O2 with no ba seline O2 -COVID and flu were negative however respiratory panel demonstrated parainfluenza -She had slight elevation in D-dimer and lower extremity duplex negative, VQ scan ordered and negative, DC heparin drip -Urine culture negative and UA not suggestive of UTI, blood cultures pending -Empiric antibiotics for 48 hours and then will de-escalate/DC if cultures no growth #HTN/HLD/chronic systolic CHF ? Blood pressures are stable ? Can continue with her home blood pressure medications ? Recent echo with an EF of 40 to 45% and a stress test with an EF of 52% that did not demonstrate any ischemia earlier this month ? Held a.m. Lasix dose due to kidney function, daily weights, I's and O's #GERRY on CKDIIIB -Creatinine further worsened to 2.40 today, does seem baseline was closer to 1.6 previously, will obtain urine studies and kidney ultrasound, hold Lasix today pending results #Type 2 diabetes mellitus -Glucose checks and sliding scale insulin -Continue glargine 55 units nightly #Anxiety/depression versus other mood disorder ? Stable ? Patient unsure of her medications and does not think she is taking both Geodon and Zyprexa but is unsure what she would be taking. Does know she is taking hydroxyzine 3 times daily scheduled. Will attempt to clarify home medications #DVT ppx: Heparin subcu Danae Su MD Time spent in the patient's overall evaluation,decision-making process, review of diagnostic data, adjustment of management, discussion with other providers, nursing nursing and ancillary staff involved in patient's care documentation, 40 minutes Charges/Coding Visit Charges Inpatient E&M: 43469 Subs Hosp L3
--- NOTE | 2022-12-07 09:33 | US_ITS ---
STUDY: RENAL ULTRASOUND - COMPLETE REASON FOR EXAM: Female, 62 years old. worsening kidney fxn TECHNIQUE: Ultrasound evaluation of the kidneys was performed with real-time and static quispe-scale imaging. COMPARISON: 08/21/2022 FINDINGS: RIGHT KIDNEY: Normal location of the right kidney, which is normal in size. The right kidney measures 10.2 cm. There is a normal cortex of the right kidney. The renal cortex measures 1.7 cm. There is no right renal mass or cyst. There are no right renal calculi. There is no right hydronephrosis. DISTAL RIGHT URETER: There is non-visualization of the distal right ureter. There is no demonstrated right ureterovesical junction calculus. There is no demonstrated right ureteral jet. LEFT KIDNEY: Normal location of the left kidney, which is normal in size. The left kidney measures 9.8 cm. There is a normal cortex of the left kidney. The renal cortex measures 1.3 cm. There is no left renal mass or cyst. There are no left renal calculi. There is no left hydronephrosis. DISTAL LEFT URETER: There is non-visualization of the distal left ureter. There is no demonstrated left ureterovesical junction calculus. There is no demonstrated left ureteral jet. BLADDER: The distended urinary bladder has a volume of 569 ml. The empty urinary bladder has a volume of ml. There is a normal wall thickness of the distended urinary bladder. There is no demonstrated mass within the urinary bladder. There are no demonstrated bladder calculi. US/Kidney and Bladder IMPRESSION: Normal ultrasound of the kidneys and urinary bladder. Electronically Signed: Davis Pace MD at 16:17 EDT ,
--- NOTE | 2022-12-07 10:42 | RAD_ITS ---
INDICATION: Lung Scan -- Following VQ Scan EXAMINATION/TECHNIQUE: X-RAY - XR Chest 1 View COMPARISON: 12/06/2022. FINDINGS: LINES/DEVICES: None. LUNGS: No consolidation, edema or effusion. No pneumothorax. MEDIASTINUM AND CARDIOVASCULAR STRUCTURES: Cardiac silhouette not enlarged. Central airways and mediastinal contour are unremarkable. BONES AND SOFT TISSUES: Unremarkable. RAD/Chest 1 View IMPRESSION: No radiographic evidence of acute cardiopulmonary disease. Electronically Signed: Alberto Davis MD at 11:38 EDT ,
--- NOTE | 2022-12-07 11:29 | CASEMGMT ---
Social Work SW introduced self and role to patient. Pt reports she plans to return to [facility] upon discharge. Pt declined SNF list. Jaja Quinn NURSE SANE, PEDIATRIC SPORTS MEDICINE SPECIALIST
[2022-12-07] MEDS: 0.9% Saline Lock 10 ML Syringe IV (11:39)
[2022-12-07] MEDS: Acetaminophen 325 MG Tablet 650 MG PO (11:39)
[2022-12-07 11:53] LABS: Bedside Glucose 303 mg/dL (74-106)
[2022-12-07] MEDS: Heparin Injection (Vial) 5,000 UNIT/ML VIAL 5000 UNIT SC ×2 (14:57→23:06)
[2022-12-07] MEDS: Fluticasone 0.05% 1 SPRAY NASAL.SRY NASAL (14:57)
[2022-12-07 15:30] LABS: Urea Nitrogen, Urine 548 mg/dL (NO RANGE EST.); Urine Chloride 50 mmol/L (Not Establ.); Urine Sodium 50 mmol/L (Not Establ.)
[2022-12-07 16:09] LABS: Partial Thromboplast Time 39.7 Seconds (24.1-36.2)
[2022-12-07 17:49] LABS: Bedside Glucose 336 mg/dL (74-106)
[2022-12-07] MEDS: Sertraline 100 MG Tablet PO (22:54)
[2022-12-07] MEDS: Insulin Glargine-YFGN 100 UNIT/ML Pen 55 UNIT SC (22:55)
[2022-12-07] MEDS: Atorvastatin Calcium 10 MG Tablet PO (23:02)
[2022-12-07 23:26] LABS: Bedside Glucose 342 mg/dL (74-106)
[2022-12-08] VITALS (13 sets, daily range): BP systolic 103–141; BP diastolic 66–89; PULSE 89–939; RESP 20; TEMP 36.5–37.1; O2SAT 89–97; BMI 51.7
[2022-12-08] MEDS: Insulin Lispro 100 UNIT/ML INSULN.PEN SC ×4 (06:22→21:15)
[2022-12-08] MEDS: hydrOXYzine PAM 25 MG Capsule PO ×3 (06:22→21:11)
[2022-12-08] MEDS: Heparin Injection (Vial) 5,000 UNIT/ML VIAL 5000 UNIT SC ×3 (06:22→21:11)
[2022-12-08 06:45] LABS: Bedside Glucose 290 mg/dL (74-106)
[2022-12-08 07:02] LABS: Absolute Lymphocyte Count 1.42 X10^3/uL (0.83-4.51); Absolute Neutrophil Count 3.5 X10^3/uL (2.0-7.7); Basophil# 0.02 X10^3/uL; Basophil% 0.4 % (0-1); Hemoglobin 10.9 g/dL (12.0-15.0); Lymphocyte # 1.42 X10^3/ul (0.83-4.51); Mean Corp Hgb Conc 30.3 g/dL (32-36); Mean Corpuscular Hgb 24.2 pg (27.0-32.0); Monocyte# 0.34 X10^3/uL; Monocyte% 6.5 % (0-10); NRBC Flagged by Analyzer 0 % (0-5); Neutrophil # 3.46 X10^3/uL (2.7-7.7); Neutrophil % 65.7 % (47-70); Platelet Count 118 K/mm3 (150-450); RBC Distribution Width CV 16.4 % (11.6-14.6); RBC Distribution Width SD 47.6 fl (35.1-43.9); White Blood Count 5.3 K/mm3 (4.4-11.0)
[2022-12-08 07:25] LABS: ALB/GLOB Ratio 0.6 RATIO (0.9-2.4); AST(SGOT) 27 U/L (15-37); Alanine Aminotransfer ALT/SGPT 27 U/L (13-56); Albumin, Serum 2.6 g/dL (3.2-5.0); Alkaline Phosphatase 81 U/L (45-117); Anion Gap 6 (5-15); BUN 50 mg/dL (7-18); BUN/Creat Ratio 22.4 RATIO (10-20); Calcium,Total 9.1 mg/dL (8.5-10.1); Chloride 102 mmol/L (98-107); Creatinine, Serum 2.23 mg/dL (0.55-1.02); EST Glomerular Filtration Rate 24 mL/min (>60); Est Glom Filt Rate - Afr Amer 29 mL/min (>60); Estimated Creatinine Clearance 49.21 ml/min; Globulin 4.5 g/dL (2.2-4.2); Glucose 269 mg/dL (74-106); Magnesium 2.3 mg/dL (1.6-2.6); Potassium 5.5 mmol/L (3.5-5.1); Protein, Total 7.1 g/dL (6.4-8.2); Sodium Level 134 mmol/L (136-145)
[2022-12-08] MEDS: Ipratropium/Albuterol Sulfate 3 ML AMPUL.NEB INHALATION ×3 (07:33→21:00)
[2022-12-08] MEDS: predniSONE 20 MG Tablet 40 MG PO (08:02)
[2022-12-08] MEDS: Ziprasidone HCl 20 MG Capsule 80 MG PO (08:02)
[2022-12-08] MEDS: Acetaminophen 325 MG Tablet 650 MG PO (08:02)
[2022-12-08] MEDS: Divalproex Sodium 125 MG Tablet PO ×2 (08:03→21:10)
[2022-12-08] MEDS: Pantoprazole Sodium 20 MG Tablet PO (08:04)
[2022-12-08] MEDS: guaiFENesin 600 MG Tablet PO ×2 (08:04→21:11)
[2022-12-08] MEDS: Nystatin Powder 15gm Bottle 1 APPLIC TOPICAL ×2 (08:04→21:15)
[2022-12-08] MEDS: Sertraline 50 MG Tablet 25 MG PO (08:05)
[2022-12-08] MEDS: Fluticasone 0.05% 1 SPRAY NASAL.SRY NASAL (08:06)
[2022-12-08] MEDS: Doxepin Hydrochloride 10 MG Capsule PO (08:06)
--- NOTE | 2022-12-08 08:58 | PCM.PN.HOSP ---
Reason for Visit Reason for Visit: Diagnoses Acute respiratory failure with hypoxia (12/06/22) Fever, unspecified (12/06/22) Subjective Subjective Patient lying in bed, reports breathing is better overall and she feels better overall, still has dry cough without any production of sputum Objective Data Objective Data Vital Signs: Vital Signs Temp Pulse Resp BP Pulse Ox O2 Del Method O2 Flow Rate 97.8 F 100 20 H 103/74 97 Nasal Cannula 2 12/08/22 08:00 12/08/22 08:00 12/08/22 08:00 12/08/22 08:00 12/08/22 08:10 12/08/22 08:10 12/08/22 08:10 Oxygen Flow Rate (L/min) 2 Oxygen Delivery Method Nasal Cannula Weight: 116.2 kg Body Mass Index (BMI) 51.7 Intake & Output: Intake and Output for Last 24 Hours 12/06/22 12/07/22 12/08/22 23:59 23:59 23:59 Intake Total 2090 / 2090 1004.5 / 1204.5 750 / 750 Output Total 250 / 900 1850 / 1850 Balance 2089 / 0 754.5 / 304.5 -1100 / -1100 Lab / Micro Data 12/08/22 06:10 12/08/22 11:59 Labs: Laboratory Results - last 24 hr 12/07/22 08:40: APTT 72.8 H 12/07/22 11:30: POC Glucose 303 H 12/07/22 14:42: Ur Random Sodium 50, Urine Creatinine 76.10, Urine Potassium 42.0, Urine Chloride 50, Urine Urea Nitrogen 548 12/07/22 15:45: APTT 39.7 H 12/07/22 16:53: POC Glucose 336 H 12/07/22 22:50: POC Glucose 342 H 12/08/22 06:10: WBC 5.3, RBC 4.50, Hgb 10.9 L, Hct 36.0 L, MCV 80.0 L, MCH 24.2 L, MCHC 30.3 L, RDW Std Deviation 47.6 H, RDW Coeff of Doris 16.4 H, Plt Count 118 L, MPV 9.0, Immature Gran % (Auto) 0.400, Neut % (Auto) 65.7, Lymph % (Auto) 27.0, [place] % (Auto) 6.5, Eos % (Auto) 0.0, Baso % (Auto) 0.4, Absolute Neuts (auto) 3.5, Absolute Lymphs (auto) 1.42, Nucleated RBC % 0, Sodium 134 L, Potassium 5.5 H, Chloride 102, Carbon Dioxide 26.0, Anion Gap 6, BUN 50 H, Creatinine 2.23 H, Estim Creat Clear Calc 49.21, Est GFR (MDRD) Af Amer 29 L, Est GFR (MDRD) Non-Af 24 L, BUN/Creatinine Ratio 22.4 H, Glucose 269 H, Calcium 9.1, Magnesium 2.3, Total Bilirubin 0.30, AST 27, ALT 27, Alkaline Phosphatase 81, Total Protein 7.1, Albumin 2.6 L, Globulin 4.5 H, Albumin/Globulin Ratio 0.6 L 12/08/22 06:20: POC Glucose 290 H Micro: Microbiology 12/06/22 15:05 Urine, Catheterized Urine Culture - Preliminary Culture exhibits no growth. 12/06/22 19:30 Mucosa - Nasopharyngeal Respiratory Panel (PCR) - Final Parainfluenza 3 12/06/22 14:45 Nasal Secretion SARS-CoV-2 & FLU Antigen (Rapid) - Final Radiography Diagnostic Testing: Radiology Impression Lung Scan-VQ NM 12/07/22 05:55 IMPRESSION: Low probability for pulmonary embolism. Electronically Signed: Alberto Davis MD at 12:31 EDT , Renal Ultrasound 12/07/22 09:33 IMPRESSION: Normal ultrasound of the kidneys and urinary bladder. Electronically Signed: Davis Pace MD at 16:17 EDT , Chest X-Ray 12/07/22 10:42 IMPRESSION: No radiographic evidence of acute cardiopulmonary disease. Electronically Signed: Alberto Davis MD at 11:38 EDT , Physical Exam Narrative General: Alert, oriented, no apparent distress HEENT: Atraumatic, normocephalic Eyes: Anicteric, normal conjunctiva, extraocular movements grossly intact Neck: Supple Respiratory: No increased respiratory effort, patient with improved aeration without overt wheezes or rhonchi Cardiovascular: Regular rate and rhythm GI: Soft, nontender, nondistended Extremities: Trace lower extremity edema Musculoskeletal: Moving all extremities Neuro: No overt focal neurological deficits, does have slight tremor in hands Skin: No rashes appreciated Psych: Cooperative Assessment & Plan Assessment/Plan (1) Fever, unknown origin: (2) Acute hypoxemic respiratory failure: PLAN: Plan #Acute hypoxic respiratory failure secondary to parainfluenza -Was febrile on admission and ABG demonstrated PO2 of 71 on 3 L of O2 with no baseline O2 -COVID and flu were negative however respiratory panel demonstrated parainfluenza -She had slight elevation in D-dimer and lower extremity duplex negative, VQ scan ordered and negative, DC heparin drip -Urine culture negative and UA not suggestive of UTI, blood cultures pending -Empiric antibiotics for 48 hours and then will de-escalate/DC if cultures no growth -12/08: Slowly improving #HTN/HLD/chronic systolic CHF ? Blood pressures are stable ? Can continue with her home blood pressure medications ? Recent echo with an EF of 40 to 45% and a stress test with an EF of 52% that did not demonstrate any ischemia earlier this month ? Held a.m. Lasix dose due to kidney function, daily weights, I's and O's -12/08: Resume Lasix #GERRY on CKDIIIB -Creatinine further worsened to 2.40 today, does seem baseline was closer to 1.6 previously, will obtain urine studies and kidney ultrasound, hold Lasix today pending results -12/08: Kidney function appears to be decreased due to intrinsic factors based on labs, continue to address underlying etiology and avoid nephrotoxic agents. #Hyperkalemia?resolved -Had episode of hyperkalemia 12/08 and K lowering cocktail given with resolution #Type 2 diabetes mellitus -Glucose checks and sliding scale insulin -Continue glargine 55 units nightly -12/08: Patient on steroids with her breathing and has had significant hyperglycemia, no anion gap, added 10 units of long-acting during the day #Anxiety/depression versus other mood disorder ? Stable ? Patient unsure of her medications and does not think she is taking both Geodon and Zyprexa but is unsure what she would be taking. Does know she is taking hydroxyzine 3 times daily scheduled. Will attempt to clarify home medications -12/08: Medications clarified and are in fact accurate #DVT ppx: Heparin subcu Danae Su MD Time spent in the patient's overall evaluation,decision-making process, review of diagnostic data, adjustment of management, discussion with other providers, nursing nursing and ancillary staff involved in patient's care documentation, 37 minutes Charges/Coding Visit Charges Inpatient E&M: 72145 [facility] Hosp L3
[2022-12-08] MEDS: Albuterol 2.5 MG/3 ML VIAL.NEB. 20 MG INHALATION (09:49)
[2022-12-08] MEDS: Sodium Polystyrene Sulfonate 15 GM/60 ML UDC PO (10:24)
[2022-12-08] MEDS: 0.9% Saline Lock 10 ML Syringe IV ×2 (10:25→14:54)
[2022-12-08] MEDS: Calcium Gluconate 1 GM/10 ML Vial IVP (10:25)
[2022-12-08] MEDS: Insulin Lispro 10 UNIT in Syringe 0 ML 6 UNIT IV (10:25)
[2022-12-08] MEDS: Insulin Glargine-YFGN 100 UNIT/ML Pen SC ×2 (10:26→12:51)
[2022-12-08 12:24] LABS: Anion Gap 7 (5-15); BUN 47 mg/dL (7-18); BUN/Creat Ratio 21.1 RATIO (10-20); Calcium,Total 9.5 mg/dL (8.5-10.1); Chloride 100 mmol/L (98-107); Creatinine, Serum 2.23 mg/dL (0.55-1.02); EST Glomerular Filtration Rate 24 mL/min (>60); Est Glom Filt Rate - Afr Amer 29 mL/min (>60); Estimated Creatinine Clearance 49.21 ml/min; Glucose 461 mg/dL (74-106); Potassium 4.8 mmol/L (3.5-5.1); Sodium Level 133 mmol/L (136-145)
[2022-12-08 13:12] LABS: Bedside Glucose 462 mg/dL (74-106)
[2022-12-08] MEDS: Furosemide 20 MG Tablet PO (14:54)
--- NOTE | 2022-12-08 16:40 | NURSING ---
Report given to MERRY Cintron.
[2022-12-08 17:42] LABS: Bedside Glucose 443 mg/dL (74-106)
[2022-12-08] MEDS: Docusate Sodium 100 MG Capsule PO (21:10)
[2022-12-08] MEDS: Sertraline 100 MG Tablet PO (21:10)
[2022-12-08] MEDS: Atorvastatin Calcium 10 MG Tablet PO (21:10)
[2022-12-08] MEDS: OLANZapine 10 MG Tablet PO (21:11)
[2022-12-08] MEDS: Insulin Glargine-YFGN 100 UNIT/ML Pen 55 UNIT SC (21:12)
[2022-12-08 22:12] LABS: Bedside Glucose 336 mg/dL (74-106)
[2022-12-09] VITALS (9 sets, daily range): BP systolic 105–156; BP diastolic 68–104; PULSE 91–939; RESP 18–20; TEMP 36.6–36.9; O2SAT 92–98; BMI 50.3
[2022-12-09 05:21] LABS: Absolute Lymphocyte Count 2.85 X10^3/uL (0.83-4.51); Absolute Neutrophil Count 4.7 X10^3/uL (2.0-7.7); Basophil# 0.02 X10^3/uL; Basophil% 0.2 % (0-1); Eosinophil# 0.01 X10^3/uL; Eosinophils% 0.1 % (0-5); Hematocrit 37.1 % (37-47); Lymphocyte # 2.85 X10^3/ul (0.83-4.51); Lymphocyte % 35.6 % (19-41); Mean Corp Hgb Conc 32.3 g/dL (32-36); Mean Corpuscular Hgb 25.1 pg (27.0-32.0); Mean Corpuscular Volume 77.5 fL (81-99); Mean Platelet Vol. 8.7 fl (6.2-12.0); Monocyte# 0.36 X10^3/uL; Monocyte% 4.5 % (0-10); NRBC Flagged by Analyzer 0 % (0-5); Neutrophil # 4.73 X10^3/uL (2.7-7.7); Neutrophil % 59.1 % (47-70); Platelet Count 155 K/mm3 (150-450); RBC Distribution Width CV 16.7 % (11.6-14.6); RBC Distribution Width SD 47.2 fl (35.1-43.9); Red Blood Count 4.79 M/mm3 (4.2-5.4)
[2022-12-09 05:54] LABS: Valproic Acid (Depakene) Level 27 ug/mL (50-100)
[2022-12-09 05:55] LABS: ALB/GLOB Ratio 0.6 RATIO (0.9-2.4); AST(SGOT) 23 U/L (15-37); Alanine Aminotransfer ALT/SGPT 24 U/L (13-56); Albumin, Serum 2.9 g/dL (3.2-5.0); Alkaline Phosphatase 83 U/L (45-117); Anion Gap 6 (5-15); BUN 47 mg/dL (7-18); BUN/Creat Ratio 23.9 RATIO (10-20); Calcium,Total 9.6 mg/dL (8.5-10.1); Chloride 103 mmol/L (98-107); Creatinine, Serum 1.97 mg/dL (0.55-1.02); EST Glomerular Filtration Rate 28 mL/min (>60); Est Glom Filt Rate - Afr Amer 33 mL/min (>60); Estimated Creatinine Clearance 54.27 ml/min; Globulin 4.5 g/dL (2.2-4.2); Glucose 159 mg/dL (74-106); Potassium 4.7 mmol/L (3.5-5.1); Protein, Total 7.4 g/dL (6.4-8.2); Sodium Level 137 mmol/L (136-145)
[2022-12-09] MEDS: Heparin Injection (Vial) 5,000 UNIT/ML VIAL 5000 UNIT SC ×3 (06:39→23:34)
[2022-12-09] MEDS: hydrOXYzine PAM 25 MG Capsule PO ×3 (06:40→23:37)
[2022-12-09 06:58] LABS: Bedside Glucose 137 mg/dL (74-106)
[2022-12-09] MEDS: Ipratropium/Albuterol Sulfate 3 ML AMPUL.NEB INHALATION ×3 (08:19→19:39)
[2022-12-09] MEDS: guaiFENesin 600 MG Tablet PO ×2 (09:14→23:34)
[2022-12-09] MEDS: Pantoprazole Sodium 20 MG Tablet PO (09:14)
[2022-12-09] MEDS: Sertraline 50 MG Tablet 25 MG PO (09:14)
[2022-12-09] MEDS: predniSONE 20 MG Tablet 40 MG PO (09:15)
[2022-12-09] MEDS: Ziprasidone HCl 20 MG Capsule 80 MG PO (09:15)
[2022-12-09] MEDS: Furosemide 20 MG Tablet PO (09:15)
[2022-12-09] MEDS: Doxepin Hydrochloride 10 MG Capsule PO (09:15)
[2022-12-09] MEDS: Divalproex Sodium 125 MG Tablet PO (09:16)
[2022-12-09] MEDS: Nystatin Powder 15gm Bottle 1 APPLIC TOPICAL ×2 (09:17→23:38)
[2022-12-09] MEDS: Insulin Glargine-YFGN 100 UNIT/ML Pen 10 UNIT SC (09:20)
--- NOTE | 2022-12-09 10:33 | CASEMGMT ---
Discharge Planning Patient resides at [facility]. Updates sent via [facility]. Grace Sanchez, Discharge Planning Asst.
[2022-12-09] MEDS: Insulin Lispro 100 UNIT/ML INSULN.PEN SC ×2 (11:25→17:02)
[2022-12-09] MEDS: Insulin Lispro 100 UNIT/ML INSULN.PEN 20 UNIT SC ×2 (11:26→17:03)
[2022-12-09 11:49] LABS: Bedside Glucose 313 mg/dL (74-106)
--- NOTE | 2022-12-09 12:59 | CASEMGMT ---
YANI spoke with patient and asked if she felt she will be strong enough to return to assisted living. Patient said she feels she will be fine. Patient will need transport back to [place] at d/c. YANI notified [facility] of this conversation. Plan: d/c back to [facility]. Rossana Brooks [employer]
--- NOTE | 2022-12-09 14:55 | CHAPLAIN ---
Type of Pastoral Visit _x__ Initial Visit ___ Follow-up Visit ___ On-call Visit ___ General Patient Visit ___ Spiritual Assessment ___ Family Conference ___ Bereavement ___ Rapid Response ___ Code Blue ___ Other (describe below) Pastoral Care Referral From _x__ Patient ___ Family ___ Nurse ___ Physician ___ Assembler Tractor ___ Housekeeper Manager ___ Other (describe below) Sacrament/Intervention _x__ Active listening ___ Anointing ___ Adventism ___ Bereavement ___ Communion ___ [place] exploration ___ ___ Life review _x__ Prayer ___ Reconciliation ___ Sacrament of Sick _x__ Supportive presence ___ Wedding ___ Other (describe below) Pastoral Comments patient is welcoming and open to support; pt states that she has no concerns and overall is doing okay and looking forward to return to [facility]; offer of prayer accepted; pt would welcome further visits if needed
--- NOTE | 2022-12-09 15:28 | PCM.PN.HOSP ---
Reason for Visit Reason for Visit: Diagnoses Acute respiratory failure with hypoxia (12/06/22) Fever, unspecified (12/06/22) Subjective Subjective Not unable to do presently, tolerating room air, overall still feeling congested and has dry cough but no other complaints today Objective Data Objective Data Vital Signs: Vital Signs Temp Pulse Resp BP Pulse Ox O2 Del Method O2 Flow Rate 98.4 F 99 20 H 134/91 H 93 Room Air 2 12/09/22 14:56 12/09/22 14:56 12/09/22 14:56 12/09/22 14:56 12/09/22 14:56 12/09/22 14:56 12/09/22 06:00 Oxygen Flow Rate (L/min) 2 Oxygen Delivery Method Room Air Weight: 113.2 kg Body Mass Index (BMI) 50.3 Intake & Output: Intake and Output for Last 24 Hours 12/07/22 12/08/22 12/09/22 23:59 23:59 23:59 Intake Total 1004.5 / 1204.5 1590 / 1590 100 / 100 Output Total 250 / 900 2250 / 2250 1999 / 1999 Balance 754.5 / 304.5 -660 / -660 -1900 / -1900 Lab / Micro Data 12/09/22 05:10 12/09/22 05:10 Labs: Laboratory Results - last 24 hr 12/08/22 17:19: POC Glucose 443 H 12/08/22 21:14: POC Glucose 336 H 12/09/22 05:10: WBC 8.0, RBC 4.79, Hgb 12.0, Hct 37.1, MCV 77.5 L, MCH 25.1 L, MCHC 32.3 D, RDW Std Deviation 47.2 H, RDW Coeff of Doris 16.7 H, Plt Count 155, MPV 8.7, Immature Gran % (Auto) 0.500, Neut % (Auto) 59.1, Lymph % (Auto) 35.6, [place] % (Auto) 4.5, Eos % (Auto) 0.1, Baso % (Auto) 0.2, Absolute Neuts (auto) 4.7, Absolute Lymphs (auto) 2.85, Nucleated RBC % 0, Sodium 137, Potassium 4.7, Chloride 103, Carbon Dioxide 28.0, Anion Gap 6, BUN 47 H, Creatinine 1.97 H, Estim Creat Clear Calc 54.27, Est GFR (MDRD) Af Amer 33 L, Est GFR (MDRD) Non-Af 28 L, BUN/Creatinine Ratio 23.9 H, Glucose 159 H, Calcium 9.6, Total Bilirubin 0.30, AST 23, ALT 24, Alkaline Phosphatase 83, Ammonia 21.0, Total Protein 7.4, Albumin 2.9 L, Globulin 4.5 H, Albumin/Globulin Ratio 0.6 L, Valproic Acid 27 L 12/09/22 06:38: POC Glucose 137 H 12/09/22 11:24: POC Glucose 313 H Micro: Microbiology 12/06/22 14:45 Blood Culture (Wb) - Anticubital Right Blood Culture - Preliminary No growth in 48 hours. 12/06/22 14:25 Blood Culture (Wb) - Right Forearm Blood Culture - Preliminary No growth in 48 hours. 12/06/22 15:05 Urine, Catheterized Urine Culture - Final Culture exhibits no growth. 12/06/22 19:30 Mucosa - Nasopharyngeal Respiratory Panel (PCR) - Final Parainfluenza 3 12/06/22 14:45 Nasal Secretion SARS-CoV-2 & FLU Antigen (Rapid) - Final Physical Exam Narrative General: Alert, oriented, no apparent distress HEENT: Atraumatic, normocephalic Eyes: Anicteric, normal conjunctiva, extraocular movements grossly intact Neck: Supple Respiratory: No increased respiratory effort, some transmitted upper airway sounds Cardiovascular: Regular rate GI: Soft, nontender, nondistended Extremities: Trace lower extremity edema Musculoskeletal: Moving all extremities Neuro: No overt focal neurological deficits, does have slight tremor in hands Skin: No rashes appreciated Psych: Cooperative Assessment & Plan Assessment/Plan (1) Fever, unknown origin: (2) Acute hypoxemic respiratory failure: PLAN: Plan #Acute hypoxic respiratory failure secondary to parainfluenza -Was febrile on admission and ABG demonstrated PO2 of 71 on 3 L of O2 with no baseline O2 -COVID and flu were negative however respiratory panel demonstrated parainfluenza -She had slight elevation in D-dimer and lower extremity duplex negative, VQ scan ordered and negative, DC heparin drip -Urine culture negative and UA not suggestive of UTI, blood cultures pending -Empiric antibiotics for 48 hours and then will de-escalate/DC if cultures no growth -12/08: Slowly improving -12/09: If patient remains off O2 tomorrow and doing well can likely DC #HTN/HLD/chronic systolic CHF ? Blood pressures are stable ? Can continue with her home blood pressure medications ? Recent echo with an EF of 40 to 45% and a stress test with an EF of 52% that did not demonstrate any ischemia earlier this month ? Held a.m. Lasix dose due to kidney function, daily weights, I's and O's -12/08: Resume Lasix #GERRY on CKDIIIB -Creatinine further worsened to 2.40 today, does seem baseline was closer to 1.6 previously, will obtain urine studies and kidney ultrasound, hold Lasix today pending results -12/08: Kidney function appears to be decreased due to intrinsic factors based on labs, continue to address underlying etiology and avoid nephrotoxic agents. -12/09: Slowly improving #Hyperkalemia?resolved -Had episode of hyperkalemia 12/08 and K lowering cocktail given with resolution #Type 2 diabetes mellitus -Glucose checks and sliding scale insulin -Continue glargine 55 units nightly -12/08: Patient on steroids with her breathing and has had significant hyperglycemia, no anion gap, added 10 units of long-acting during the day #Anxiety/depression versus other mood disorder ? Stable ? Patient unsure of her medications and does not think she is taking both Geodon and Zyprexa but is unsure what she would be taking. Does know she is taking hydroxyzine 3 times daily scheduled. Will attempt to clarify home medications -12/08: Medications clarified and are in fact accurate #DVT ppx: Heparin subcu Danae Su MD Time spent in the patient's overall evaluation,decision-making process, review of diagnostic data, adjustment of management, discussion with other providers, nursing nursing and ancillary staff involved in patient's care documentation, 37 minutes Charges/Coding Visit Charges Inpatient E&M: [address] [facility] Hosp L3
[2022-12-09 17:21] LABS: Bedside Glucose 301 mg/dL (74-106)
[2022-12-09] MEDS: OLANZapine 10 MG Tablet PO (23:36)
[2022-12-09] MEDS: Atorvastatin Calcium 10 MG Tablet PO (23:49)
[2022-12-09] MEDS: Sertraline 100 MG Tablet PO (23:50)
[2022-12-10] VITALS (9 sets, daily range): BP systolic 112–146; BP diastolic 78–99; PULSE 85–104; RESP 18–24; TEMP 36.4–36.7; O2SAT 91–96; BMI 49.5
[2022-12-10] MEDS: Insulin Lispro 100 UNIT/ML INSULN.PEN SC ×2 (00:01→22:08)
[2022-12-10] MEDS: Insulin Glargine-YFGN 100 UNIT/ML Pen 55 UNIT SC ×2 (00:05→22:08)
[2022-12-10 00:25] LABS: Bedside Glucose 254 mg/dL (74-106)
[2022-12-10] MEDS: Heparin Injection (Vial) 5,000 UNIT/ML VIAL 5000 UNIT SC ×3 (05:45→22:08)
[2022-12-10] MEDS: hydrOXYzine PAM 25 MG Capsule PO ×2 (05:50→14:54)
[2022-12-10 06:17] LABS: Absolute Lymphocyte Count 4.65 X10^3/uL (0.83-4.51); Basophil# 0.05 X10^3/uL; Basophil% 0.4 % (0-1); Hematocrit 40.3 % (37-47); Hemoglobin 13.1 g/dL (12.0-15.0); Lymphocyte # 4.65 X10^3/ul (0.83-4.51); Lymphocyte % 40.8 % (19-41); Mean Corp Hgb Conc 32.5 g/dL (32-36); Mean Corpuscular Volume 76.9 fL (81-99); Mean Platelet Vol. 8.6 fl (6.2-12.0); Monocyte% 5.3 % (0-10); NRBC Flagged by Analyzer 0 % (0-5); Neutrophil # 6.04 X10^3/uL (2.7-7.7); Platelet Count 188 K/mm3 (150-450); RBC Distribution Width SD 47.5 fl (35.1-43.9); Red Blood Count 5.24 M/mm3 (4.2-5.4); White Blood Count 11.4 K/mm3 (4.4-11.0)
[2022-12-10 06:43] LABS: ALB/GLOB Ratio 0.6 RATIO (0.9-2.4); AST(SGOT) 23 U/L (15-37); Alanine Aminotransfer ALT/SGPT 24 U/L (13-56); Alkaline Phosphatase 78 U/L (45-117); Anion Gap 5 (5-15); BUN 52 mg/dL (7-18); Calcium,Total 9.7 mg/dL (8.5-10.1); Chloride 102 mmol/L (98-107); Creatinine, Serum 1.86 mg/dL (0.55-1.02); EST Glomerular Filtration Rate 29 mL/min (>60); Est Glom Filt Rate - Afr Amer 36 mL/min (>60); Estimated Creatinine Clearance 56.62 ml/min; Globulin 4.9 g/dL (2.2-4.2); Glucose 134 mg/dL (74-106); Potassium 4.3 mmol/L (3.5-5.1); Protein, Total 7.9 g/dL (6.4-8.2); Sodium Level 136 mmol/L (136-145)
[2022-12-10] MEDS: Ipratropium/Albuterol Sulfate 3 ML AMPUL.NEB INHALATION ×4 (07:21→20:29)
[2022-12-10 08:16] LABS: Bedside Glucose 126 mg/dL (74-106)
[2022-12-10] MEDS: Ziprasidone HCl 20 MG Capsule 80 MG PO (10:28)
[2022-12-10] MEDS: Pantoprazole Sodium 20 MG Tablet PO (10:30)
[2022-12-10] MEDS: Divalproex Sodium 125 MG Tablet PO ×3 (10:30→22:07)
[2022-12-10] MEDS: guaiFENesin 600 MG Tablet PO ×2 (10:30→22:07)
[2022-12-10] MEDS: predniSONE 20 MG Tablet 40 MG PO (10:30)
[2022-12-10] MEDS: Nystatin Powder 15gm Bottle 1 APPLIC TOPICAL ×2 (10:30→22:11)
[2022-12-10] MEDS: Furosemide 20 MG Tablet PO (10:31)
[2022-12-10] MEDS: Sertraline 50 MG Tablet 25 MG PO (10:31)
[2022-12-10] MEDS: Doxepin Hydrochloride 10 MG Capsule PO (10:31)
[2022-12-10 11:11] LABS: Allen Test Positive; Base Excess 6 mmol/L (-2 to +2); Bicarbonate 29.3 mmol/L (22-26); Blood Gas Specimen Type ART; O2 Delivery Device Room Air; PO2 60 mmHG (75-100); SITE R Radial; SO2 93 % (95-99); Total Carbon Dioxide 30 mmol/L; pCO2 36.7 mmHg (35-45); pH 7.51 (7.35-7.45)
[2022-12-10 11:36] LABS: Bedside Glucose 138 mg/dL (74-106)
[2022-12-10] MEDS: Insulin Glargine-YFGN 100 UNIT/ML Pen 10 UNIT SC (12:50)
[2022-12-10] MEDS: Insulin Lispro 100 UNIT/ML INSULN.PEN 20 UNIT SC ×2 (12:51→18:42)
--- NOTE | 2022-12-10 16:17 | PN.HOSP_ITS ---
Reason for Visit Reason for Visit: Diagnoses Acute respiratory failure with hypoxia (12/06/22) Fever, unspecified (12/06/22) Subjective Subjective Patient reports feeling tired today, otherwise roughly unchanged Objective Data Objective Data Vital Signs: Vital Signs Temp Pulse Resp BP Pulse Ox O2 Del Method O2 Flow Rate 98.0 F 102 H 24 H 136/99 H 92 Nasal Cannula 2 12/10/22 10:24 12/10/22 15:02 12/10/22 15:02 12/10/22 10:24 12/10/22 15:02 12/10/22 15:02 12/10/22 15:02 Oxygen Flow Rate (L/min) 2 Oxygen Delivery Method Nasal Cannula Weight: 111.5 kg Body Mass Index (BMI) 49.5 Intake & Output: Intake and Output for Last 24 Hours 12/08/22 12/09/22 12/10/22 23:59 23:59 23:59 Intake Total 1590 / 1590 460 / 460 620 / 620 Output Total 2250 / 2250 2400 / 2400 1025 / 1025 Balance -660 / -660 -1940 / -1940 -405 / -405 Lab / Micro Data 12/10/22 05:21 12/10/22 05:21 Labs: Laboratory Results - last 24 hr 12/09/22 17:01: POC Glucose 301 H 12/09/22 23:59: POC Glucose 254 H 12/10/22 05:21: WBC 11.4 H, RBC 5.24, Hgb 13.1, Hct 40.3, MCV 76.9 L, MCH 25.0 L , MCHC 32.5, RDW Std Deviation 47.5 H, RDW Coeff of Doris 17.0 H, Plt Count 188, MPV 8.6, Immature Gran % (Auto) 0.500, Neut % (Auto) 53.0, Lymph % (Auto) 40.8, [place] % (Auto) 5.3, Eos % (Auto) 0.0, Baso % (Auto) 0.4, Absolute Neuts (auto) 6.0, Absolute Lymphs (auto) 4.65 H, Nucleated RBC % 0, Sodium 136, Potassium 4.3, Chloride 102, Carbon Dioxide 29.0, Anion Gap 5, BUN 52 H, Creatinine 1.86 H , Estim Creat Clear Calc 56.62, Est GFR (MDRD) Af Amer 36 L, Est GFR (MDRD) Non- Af 29 L, BUN/Creatinine Ratio 28.0 H, Glucose 134 H, Calcium 9.7, Total Bilirubin 0.30, AST 23, ALT 24, Alkaline Phosphatase 78, Total Protein 7.9, Albumin 3.0 L, Globulin 4.9 H, Albumin/Globulin Ratio 0.6 L 12/10/22 07:57: POC Glucose 126 H 12/10/22 11:15: POC Glucose 138 H Micro: Microbiology 12/06/22 14:45 Blood Culture (Wb) - Anticubital Right Blood Culture - Preliminary No growth in 48 hours. 12/06/22 14:25 Blood Culture (Wb) - Right Forearm Blood Culture - Preliminary No growth in 48 hours. 12/06/22 15:05 Urine, Catheterized Urine Culture - Final Culture exhibits no growth. 12/06/22 19:30 Mucosa - Nasopharyngeal Respiratory Panel (PCR) - Final Parainfluenza 3 12/06/22 14:45 Nasal Secretion SARS-CoV-2 & FLU Antigen (Rapid) - Final ABG Data ABG results: ABG 12/10/22 11:06 Specimen Type ART Sample Site R Radial pH 7.51 H Bicarbonate Actual 29.3 H Total CO2 30 Base Excess 6 H O2 Saturation 93 L ABG pCO2 36.7 ABG pO2 60 L Vickey Test Positive O2 Delivery Device Room Air Physical Exam Narrative General: Alert, oriented, no apparent distress HEENT: Atraumatic, normocephalic, is slightly more tired than yesterday Eyes: Anicteric, normal conjunctiva, extraocular movements grossly intact Neck: Supple Respiratory: Slightly more coarse Cardiovascular: Regular rate GI: Soft, nontender, nondistended Extremities: No lower extremity edema Musculoskeletal: Moving all extremities Neuro: No overt focal neurological deficits, does have slight tremor in hands Skin: No rashes appreciated Psych: Cooperative Assessment & Plan Assessment/Plan (1) Fever, unknown origin: (2) Acute hypoxemic respiratory failure: PLAN: Plan #Acute hypoxic respiratory failure secondary to parainfluenza -Was febrile on admission and ABG demonstrated PO2 of 71 on 3 L of O2 with no baseline O2 -COVID and flu were negative however respiratory panel demonstrated parainfluenza -She had slight elevation in D-dimer and lower extremity duplex negative, VQ scan ordered and negative, DC heparin drip -Urine culture negative and UA not suggestive of UTI, blood cultures pending -Empiric antibiotics for 48 hours and then will de-escalate/DC if cultures no growth -12/08: Slowly improving -12/09: If patient remains off O2 tomorrow and doing well can likely DC -12/10: ABG on room air with sat of 93% and PO2 of 60 that this would not qualify for O2 and patient on ambulatory. Does still report problems with her breathing but was diagnosed the parainfluenza and sats overall have been better. Was lexx ewhat tired today but was not retaining CO2. We will cut back on hydroxyzine, this could be in part with her medications as she had no focal complaints, did have slight increase in white blood cell count but no left shift and has been afebrile. May benefit from BiPAP overnight or sleep study on outpatient basis as given habitus and some component of snoring suspect she may have underlying sleep apnea #HTN/HLD/chronic systolic CHF ? Blood pressures are stable ? Can continue with her home blood pressure medications ? Recent echo with an EF of 40 to 45% and a stress test with an EF of 52% that did not demonstrate any ischemia earlier this month ? Held a.m. Lasix dose due to kidney function, daily weights, I's and O's -12/08: Resume Lasix #GERRY on CKDIIIB -Creatinine further worsened to 2.40 today, does seem baseline was closer to 1.6 previously, will obtain urine studies and kidney ultrasound, hold Lasix today pending results -12/08: Kidney function appears to be decreased due to intrinsic factors based on labs, continue to address underlying etiology and avoid nephrotoxic agents. -12/09: Slowly improving #Hyperkalemia?resolved -Had episode of hyperkalemia 12/08 and K lowering cocktail given with resolution #Type 2 diabetes mellitus -Glucose checks and sliding scale insulin -Continue glargine 55 units nightly -12/08: Patient on steroids with her breathing and has had significant hyperg lycemia, no anion gap, added 10 units of long-acting during the day -12/10: Continue to adjust #Anxiety/depression versus other mood disorder ? Stable ? Patient unsure of her medications and does not think she is taking both Geodon and Zyprexa but is unsure what she would be taking. Does know she is taking hydroxyzine 3 times daily scheduled. Will attempt to clarify home medications -12/08: Medications clarified and are in fact accurate #DVT ppx: Heparin subcu Danae Su MD Time spent in the patient's overall evaluation,decision-making process, review of diagnostic data, adjustment of management, discussion with other providers, nursing nursing and ancillary staff involved in patient's care documentation, 37 minutes Charges/Coding Visit Charges Inpatient E&M: 16662 [facility] [[email or web address] Hosp L3
[2022-12-10 17:17] LABS: Bedside Glucose 166 mg/dL (74-106)
[2022-12-10] MEDS: hydrOXYzine 10 MG Tablet PO (22:07)
[2022-12-10] MEDS: 0.9% Saline Lock 10 ML Syringe IV (22:07)
[2022-12-10] MEDS: Sertraline 100 MG Tablet PO (22:07)
[2022-12-10] MEDS: Atorvastatin Calcium 10 MG Tablet PO (22:07)
[2022-12-10] MEDS: OLANZapine 10 MG Tablet PO (22:07)
[2022-12-10 23:05] LABS: Bedside Glucose 258 mg/dL (74-106)
[2022-12-11] VITALS (7 sets, daily range): BP systolic 119–127; BP diastolic 67–86; PULSE 85–110; RESP 12–21; TEMP 36.4–36.7; O2SAT 92–96; BMI 49.6
[2022-12-11] MEDS: hydrOXYzine 10 MG Tablet PO ×2 (05:12→14:48)
[2022-12-11] MEDS: Heparin Injection (Vial) 5,000 UNIT/ML VIAL 5000 UNIT SC (05:12)
[2022-12-11 06:44] LABS: Absolute Lymphocyte Count 5.77 X10^3/uL (0.83-4.51); Absolute Neutrophil Count 6.1 X10^3/uL (2.0-7.7); Basophil# 0.04 X10^3/uL; Basophil% 0.3 % (0-1); Eosinophil# 0.01 X10^3/uL; Eosinophils% 0.1 % (0-5); Hematocrit 39.1 % (37-47); Hemoglobin 12.5 g/dL (12.0-15.0); Lymphocyte # 5.77 X10^3/ul (0.83-4.51); Lymphocyte % 45.4 % (19-41); Mean Corpuscular Hgb 24.7 pg (27.0-32.0); Mean Corpuscular Volume 77.3 fL (81-99); Mean Platelet Vol. 8.6 fl (6.2-12.0); Monocyte# 0.62 X10^3/uL; Monocyte% 4.9 % (0-10); NRBC Flagged by Analyzer 0 % (0-5); Neutrophil # 6.14 X10^3/uL (2.7-7.7); Neutrophil % 48.3 % (47-70); POSITIVE DIFFERENTIAL YES; POSITIVE MORPHOLOGY YES; Platelet Count 189 K/mm3 (150-450); RBC Distribution Width CV 17.1 % (11.6-14.6); RBC Distribution Width SD 47.7 fl (35.1-43.9); Red Blood Count 5.06 M/mm3 (4.2-5.4); White Blood Count 12.7 K/mm3 (4.4-11.0)
[2022-12-11 06:52] LABS: Differential Indicated SCAN CRITERIA MET
[2022-12-11] MEDS: Ipratropium/Albuterol Sulfate 3 ML AMPUL.NEB INHALATION ×3 (07:08→15:21)
[2022-12-11 07:17] LABS: Differential Comment SCANNED
[2022-12-11 07:18] LABS: ALB/GLOB Ratio 0.6 RATIO (0.9-2.4); AST(SGOT) 30 U/L (15-37); Alanine Aminotransfer ALT/SGPT 34 U/L (13-56); Albumin, Serum 2.9 g/dL (3.2-5.0); Alkaline Phosphatase 72 U/L (45-117); Anion Gap 5 (5-15); BUN 67 mg/dL (7-18); BUN/Creat Ratio 35.3 RATIO (10-20); Calcium,Total 9.3 mg/dL (8.5-10.1); Chloride 102 mmol/L (98-107); EST Glomerular Filtration Rate 29 mL/min (>60); Est Glom Filt Rate - Afr Amer 35 mL/min (>60); Estimated Creatinine Clearance 55.57 ml/min; Globulin 4.8 g/dL (2.2-4.2); Glucose 149 mg/dL (74-106); Potassium 4.4 mmol/L (3.5-5.1); Protein, Total 7.7 g/dL (6.4-8.2); Sodium Level 136 mmol/L (136-145)
[2022-12-11 08:12] LABS: Bedside Glucose 130 mg/dL (74-106)
[2022-12-11] MEDS: Insulin Lispro 100 UNIT/ML INSULN.PEN 20 UNIT SC ×2 (08:27→12:39)
[2022-12-11] MEDS: Doxepin Hydrochloride 10 MG Capsule PO (09:05)
[2022-12-11] MEDS: guaiFENesin 600 MG Tablet PO (09:05)
[2022-12-11] MEDS: Sertraline 50 MG Tablet 25 MG PO (09:05)
[2022-12-11] MEDS: Furosemide 20 MG Tablet PO (09:05)
[2022-12-11] MEDS: predniSONE 20 MG Tablet 40 MG PO (09:06)
[2022-12-11] MEDS: Pantoprazole Sodium 20 MG Tablet PO (09:07)
[2022-12-11] MEDS: Ziprasidone HCl 20 MG Capsule 80 MG PO (09:07)
[2022-12-11] MEDS: Divalproex Sodium 125 MG Tablet PO (09:08)
[2022-12-11] MEDS: Nystatin Powder 15gm Bottle 1 APPLIC TOPICAL (09:09)
--- NOTE | 2022-12-11 09:19 | CASEMGMT ---
Discharge Planning Updates sent to [facility] via [facility]. left with admissions regarding patients return status, [place] or SNF. Awaiting response. Grace Sanchez, Discharge Planning Asst.
[2022-12-11 12:14] LABS: Bedside Glucose 158 mg/dL (74-106)
--- NOTE | 2022-12-11 13:30 | PCM.PN.HOSP ---
Reason for Visit Reason for Visit: Diagnoses Type 2 diabetes mellitus without complications (12/06/22) Acute respiratory failure with hypoxia (12/06/22) Fever, unspecified (12/06/22) Subjective Subjective Feeling less tired today, still some shortness of breath with the coronavirus but feels better overall Objective Data Objective Data Vital Signs: Vital Signs Temp Pulse Resp BP Pulse Ox O2 Del Method O2 Flow Rate 97.9 F 88 21 H 119/86 H 92 Room Air 2 12/11/22 09:04 12/11/22 11:20 12/11/22 11:20 12/11/22 09:04 12/11/22 09:04 12/11/22 09:04 12/11/22 07:09 FiO2 30 12/11/22 00:35 Oxygen Flow Rate (L/min) 2 Oxygen Delivery Method Room Air Weight: 111.8 kg Body Mass Index (BMI) 49.6 Intake & Output: Intake and Output for Last 24 Hours 12/09/22 12/10/22 12/11/22 23:59 23:59 23:59 Intake Total 460 / 460 1120 / 1120 Output Total 2400 / 2400 1575 / 1575 650 / 650 Balance -1940 / -1940 -455 / -455 -650 / -650 Lab / Micro Data 12/11/22 06:30 12/11/22 06:30 Labs: Laboratory Results - last 24 hr 12/10/22 16:44: POC Glucose 166 H 12/10/22 22:02: POC Glucose 258 H 12/11/22 06:30: WBC 12.7 H, RBC 5.06, Hgb 12.5, Hct 39.1, MCV 77.3 L, MCH 24.7 L, MCHC 32.0, RDW Std Deviation 47.7 H, RDW Coeff of Doris 17.1 H, Plt Count 189, MPV 8.6, Immature Gran % (Auto) 1.000 H, Neut % (Auto) 48.3, Lymph % (Auto) 45.4 H, [place] % (Auto) 4.9, Eos % (Auto) 0.1, Baso % (Auto) 0.3, Absolute Neuts (auto) 6.1, Absolute Lymphs (auto) 5.77 H, Nucleated RBC % 0, Differential Comment SCANNED, Sodium 136, Potassium 4.4, Chloride 102, Carbon Dioxide 29.0, Anion Gap 5, BUN 67 H, Creatinine 1.90 H, Estim Creat Clear Calc 55.57, Est GFR (MDRD) Af Amer 35 L, Est GFR (MDRD) Non-Af 29 L, BUN/Creatinine Ratio 35.3 H, Glucose 149 H, Calcium 9.3, Total Bilirubin 0.30, AST 30, ALT 34, Alkaline Phosphatase 72, Ammonia 25.0, Total Protein 7.7, Albumin 2.9 L, Globulin 4.8 H, Albumin/Globulin Ratio 0.6 L 12/11/22 07:54: POC Glucose 130 H 12/11/22 11:53: POC Glucose 158 H Micro: Microbiology 12/06/22 14:45 Blood Culture (Wb) - Anticubital Right Blood Culture - Preliminary No growth in 48 hours. 12/06/22 14:25 Blood Culture (Wb) - Right Forearm Blood Culture - Preliminary No growth in 48 hours. 12/06/22 15:05 Urine, Catheterized Urine Culture - Final Culture exhibits no growth. 12/06/22 19:30 Mucosa - Nasopharyngeal Respiratory Panel (PCR) - Final Parainfluenza 3 12/06/22 14:45 Nasal Secretion SARS-CoV-2 & FLU Antigen (Rapid) - Final Physical Exam Narrative General: Alert, oriented, no apparent distress HEENT: Atraumatic, normocephalic Eyes: Anicteric, normal conjunctiva, extraocular movements grossly intact Neck: Supple Respiratory: No increased respiratory effort, some transmitted upper airway sounds Cardiovascular: Regular rate GI: Soft, nontender, nondistended Extremities: Trace lower extremity edema Musculoskeletal: Moving all extremities Neuro: No overt focal neurological deficits, does have slight tremor in hands Skin: No rashes appreciated Psych: Cooperative Assessment & Plan Assessment/Plan (1) Fever, unknown origin: (2) Acute hypoxemic respiratory failure: PLAN: Plan #Acute hypoxic respiratory failure secondary to parainfluenza -Was febrile on admission and ABG demonstrated PO2 of 71 on 3 L of O2 with no baseline O2 -COVID and flu were negative however respiratory panel demonstrated parainfluenza -She had slight elevation in D-dimer and lower extremity duplex negative, VQ scan ordered and negative, DC heparin drip -Urine culture negative and UA not suggestive of UTI, blood cultures pending -Empiric antibiotics for 48 hours and then will de-escalate/DC if cultures no growth -12/08: Slowly improving -12/09: If patient remains off O2 tomorrow and doing well can likely DC -12/10: ABG on room air with sat of 93% and PO2 of 60 that this would not qualify for O2 and patient on ambulatory. Does still report problems with her breathing but was diagnosed the parainfluenza and sats overall have been better. Was somewhat tired today but was not retaining CO2. We will cut back on hydroxyzine, this could be in part with her medications as she had no focal complaints, did have slight increase in white blood cell count but no left shift and has been afebrile. May benefit from BiPAP overnight or sleep study on outpatient basis as given habitus and some component of snoring suspect she may have underlying sleep apnea -12/11: Less tired today with decrease in hydroxyzine, still has some transmitted upper airway sounds, incentive spirometer and flutter valve ordered. Patient would like to go back to assisted living, presently assisted living is being contacted to assess their willingness/ability to take her back versus necessitating SNF placement. Does have slight increase in white blood cell count but neutrophils still 48% and no other signs symptoms of infection so unclear clinical significance and with no fever or other new complaints do not think patient should be recultured and started on broad-spectrum antibiotics. If still clinically doing well will continue to work on discharge #HTN/HLD/chronic systolic CHF ? Blood pressures are stable ? Can continue with her home blood pressure medications ? Recent echo with an EF of 40 to 45% and a stress test with an EF of 52% that did not demonstrate any ischemia earlier this month ? Held a.m. Lasix dose due to kidney function, daily weights, I's and O's -12/08: Resume Lasix #GERRY on CKDIIIB -Creatinine further worsened to 2.40 today, does seem baseline was closer to 1.6 previously, will obtain urine studies and kidney ultrasound, hold Lasix today pending results -12/08: Kidney function appears to be decreased due to intrinsic factors based on labs, continue to address underlying etiology and avoid nephrotoxic agents. -12/09: Slowly improving -12/11: Creatinine still variable, slight increase today, is down weight from admission, suspect she is now at her steady weight #Hyperkalemia?resolved -Had episode of hyperkalemia 12/08 and K lowering cocktail given with resolution #Type 2 diabetes mellitus -Glucose checks and sliding scale insulin -Continue glargine 55 units nightly -12/08: Patient on steroids with her breathing and has had significant hyperglycemia, no anion gap, added 10 units of long-acting during the day -12/10: Continue to adjust #Anxiety/depression versus other mood disorder ? Stable ? Patient unsure of her medications and does not think she is taking both Geodon and Zyprexa but is unsure what she would be taking. Does know she is taking hydroxyzine 3 times daily scheduled. Will attempt to clarify home medications -12/08: Medications clarified and are in fact accurate #DVT ppx: Heparin subcu Danae Su MD Time spent in the patient's overall evaluation,decision-making process, review of diagnostic data, adjustment of management, discussion with other providers, nursing nursing and ancillary staff involved in patient's care documentation, 37 minutes Charges/Coding Visit Charges Inpatient E&M: 34098 Subs Hosp L3
--- NOTE | 2022-12-11 14:35 | DCINST_ITS ---
Discharge Instructions Diet Discharge Diet: Carb Control Diet and - (Cardiac) Activity Discharge Activity: Use Walker and - (Return to previous level of functioning) Follow Up Care Test Results: Test results from this visit will be discussed in further detail at your follow- up appointment, if applicable. Discharge Plan Admission Admit Date/Time: 12/06/22 17:39 Primary Reason for Your Visit: Shortness of breath Attending Provider: Danae Su Primary Care Provider: Care Physician,No Primary Consulting Providers: Tyler Faustin Instructions Patient Instructions: ED URI, Viral, No Abx (Adult) Additional Instructions / Restrictions: DISCHARGE INSTRUCTIONS PLEASE READ *Please take this with you to your next doctors appointment* -Would recommend lab work (BMP) to check your kidney function in 2 to 3 days through your primary care physician's office. Please call their office upon discharge to obtain order for lab work. -Your lisinopril has been held due to your kidney function, this can be resumed at the discretion of your primary care physician/prescribing physician based on your lab work and blood pressure moving forward -You have been feeling somewhat tired which may impart be due to medications, would recommend continue to hold your gabapentin until labs are checked and symptoms improve and would recommend decreasing hydroxyzine to 10 mg 3 times a day due to the sedating nature of this medication as well -Your insulin regimen has been changed based on your blood sugars in the hospital to insulin lispro 20 mg subcu 3 times daily AC with sliding scale insulin but you will continue your 55 units of insulin glargine at bedtime -You would also benefit from using an albuterol inhaler as needed for wheezing and it is advised to have a sleep study done on an outpatient basis as he may have sleep apnea -Please call your primary care provider's office upon discharge to schedule a hospital follow up within 1 week. -For any concerning signs or symptoms please call 911 or proceed to the nearest emergency department Discharge Orders/Prescriptions Prescriptions: New hydroxyzine HCl 10 mg Tablet 10 mg PO TID 14 Days Qty: 42 0RF albuterol sulfate [ProAir HFA] 90 mcg/actuation HFA aerosol inhaler 2 puff inhalation Q6H PRN (Reason: shortness of breath or wheezing) Qty: 8.5 0RF Continued simvastatin 20 mg tablet 20 mg PO QHS sertraline 25 mg tablet 25 mg PO DAILY ziprasidone HCl 80 mg capsule 80 mg PO DAILY Rx Instructions: give with food (meal/snack) doxepin 10 mg capsule 10 mg PO DAILY omeprazole 20 mg capsule,delayed release(DR/EC) 20 mg PO DAILY (DME) FreeStyle Jolie 2 [place] Misc See Rx Instructions .Route Qty: 1 0RF Rx Instructions: As directed divalproex 125 mg tablet,delayed release (DR/EC) 125 mg PO BID albuterol sulfate [Ventolin HFA] 90 mcg/actuation HFA aerosol inhaler 2 puff inhalation Q4H PRN (Reason: shortness of breath or wheezing) nystatin [Nystop] 100,000 unit/gram Powder 1 applic TOPICAL BID acetaminophen 325 mg tablet 650 mg PO BID PRN (Reason: PAIN AND FEVER) sertraline 100 mg tablet 100 mg PO QHS olanzapine 10 mg tablet 10 mg PO QHS ergocalciferol (vitamin D2) [Drisdol] 1,250 mcg (50,000 unit) Capsule 1,250 mcg PO .BIW furosemide 20 mg tablet 20 mg PO DAILY Qty: 30 1RF fesoterodine [Toviaz] 8 mg tablet extended release 24 hr 8 mg PO DAILY docusate sodium [Colace] 100 mg capsule 100 mg PO BID polyethylene glycol 3350 [Miralax] 17 gram/dose powder 17 g PO DAILY Gemtesa 75 mg tablet 75 mg PO DAILY HUMALOG KWIK PEN 100U/ML See Protocol Protocol: 6. Sliding Scale Insulin Custom Condition: 180-220 Dose/Route: 3 Instruction: TID CM Condition: 221-260 Dose/Route: 5 Instruction: TID CM Condition: >260 Dose/Route: 8 Instruction: TID CM Protocol Text: Custom Sliding Scale insulin glargine [Lantus Solostar U-100 Insulin] 100 unit/mL (3 mL) insulin pen 55 unit subcut QHS amlodipine 5 mg tablet 5 mg PO DAILY Qty: 30 6RF (DME) FreeStyle Jolie 2 Sensor Kit See Rx Instructions .Route Qty: 2 5RF Rx Instructions: 1 sensor q 14 days Changed insulin lispro 100 unit/mL insulin pen 20 unit subcut TID MDD 135 30 Days Qty: 31.5 5RF Held gabapentin 300 mg capsule 300 mg PO DAILY Hold Instructions: Resume on 07/12/23. lisinopril 5 mg Tablet 5 mg PO DAILY Qty: 30 0RF Hold Instructions: Resume on 12/25/22. Discontinued hydroxyzine HCl 25 mg tablet 25 mg PO TID Referrals / Follow Up: Care Physician,No Primary [Primary Care Provider] - Within 1 Week ( -If you do not have a primary care physician of list of local primary care physicians can be provided for you upon discharge. Please ask for this list prior to discharge) Disposition Disposition (needs filled in before D/C Order can be placed): Assisted Living
--- NOTE | 2022-12-11 14:38 | PCM.DC.SUM ---
Providers Date of Admission: 12/06/22 Date of Discharge: 12/11/22 Primary Care Physician: No Primary Care Phys Reason For Visit: FEVER, GERRY, HYPOXIA Diagnosis Discharge Diagnosis (1) Acute hypoxemic respiratory failure: Status: Resolved Code(s): J96.01 - Acute respiratory failure with hypoxia (2) Parainfluenza: Status: Acute Code(s): B34.8 - Other viral infections of unspecified site Plan #Acute hypoxic respiratory failure secondary to parainfluenza #HTN/HLD/chronic systolic CHF #GERRY on CKDIIIB #Hyperkalemia?resolved #Type 2 diabetes mellitus #Anxiety/depression versus other mood disorder Medications at Discharge Home Medications doxepin 10 mg capsule 10 mg PO DAILY SLEEP 05/29/22 flash glucose scanning reader ([employer] Jolie 2 Alvord) #1 ea 05/29/22 gabapentin 300 mg capsule 300 mg PO DAILY 05/29/22 omeprazole 20 mg capsule,delayed release 20 mg PO DAILY GERD 05/29/22 sertraline 25 mg tablet 25 mg PO DAILY MOOD 05/29/22 simvastatin 20 mg tablet 20 mg PO QHS CHOLESTEROL 05/29/22 ziprasidone HCl 80 mg capsule 80 mg PO DAILY MOOD 05/29/22 amlodipine 5 mg tablet 5 mg PO DAILY #30 tabs 07/15/22 acetaminophen 325 mg tablet 650 mg PO BID PRN PAIN AND FEVER 08/28/22 ergocalciferol (vitamin D2) 1,250 mcg (50,000 unit) capsule (Drisdol) 1,250 mcg PO .BIW SUPPLEMENT 08/28/22 nystatin 100,000 unit/gram topical powder (Nystop) 1 applic topical BID SKIN 08/28/22 olanzapine 10 mg tablet 10 mg PO QHS MOOD 08/28/22 sertraline 100 mg tablet 100 mg PO QHS MOOD 08/28/22 furosemide 20 mg tablet 20 mg PO DAILY #30 tabs 08/31/22 lisinopril 5 mg tablet 5 mg PO DAILY #30 tabs 08/31/22 albuterol sulfate 90 mcg/actuation aerosol inhaler (Ventolin HFA) 2 puff inhalation Q4H PRN shortness of breath or wheezing 09/23/22 divalproex 125 mg tablet,delayed release 125 mg PO BID 09/23/22 flash glucose sensor ([employer] Jolie 2 Sensor kit) #2 ea 09/23/22 HUMALOG KWIK PEN 100U/ML See Protocol DM 12/06/22 docusate sodium 100 mg capsule (Colace) 100 mg PO BID 12/06/22 fesoterodine 8 mg tablet,extended release 24 hr (Toviaz) 8 mg PO DAILY 12/06/22 insulin glargine 100 unit/mL (3 mL) subcutaneous pen (Lantus Solostar U-100 Insulin) 55 unit subcut QHS 12/06/22 polyethylene glycol 3350 17 gram/dose oral powder (Miralax) 17 g PO DAILY 12/06/22 vibegron 75 mg tablet (Gemtesa) 75 mg PO DAILY 12/06/22 albuterol sulfate 90 mcg/actuation aerosol inhaler (ProAir HFA) 2 puff inhalation Q6H PRN shortness of breath or wheezing #8.5 grams 12/11/22 hydroxyzine HCl 10 mg tablet 10 mg PO TID 14 days #42 tabs 12/11/22 insulin lispro 100 unit/mL subcutaneous pen 20 unit (0.2 mL) subcut TID DM 30 days #31.5 mL 12/11/22 Hospital Course Summary of Care Provided Minutes Spent on Discharge: 40 Hospital Course: 8-year-old female history of mood disorder, type 2 diabetes mellitus, CKD stage IIIb, hypertension, anxiety presented to [facility] 12/06/22 due to increasing shortness of breath initial concern for sepsis however sepsis was ruled out and she is found to have parainfluenza. After 48 hours and cultures negative empiric antibiotics discontinued and supportive care was continued for her parainfluenza and she slowly improved and was weaned off O2. During her hospital stay she also was noted to have an GERRY with a creatinine that peaked at 2.4 and a baseline closer to 1.6. Urine studies appeared to indicate intrinsic factors, kidney function slightly improved. Resumed her home Lasix which continue to improve breathing. As she improved and was close to being ready for discharge she was reevaluated by PT and OT as she wanted to return to assisted living but there is a query as to how weak she was compared to baseline. Initially when she worked with him it was thought she may benefit from a brief skilled stay however on reevaluation with improved patient motivation it was felt she was okay to return to assisted living. On day of discharge patient less tired than she had been the day before decrease in hydroxyzine. She still had some shortness of breath but it still was improved overall, when auscultating lungs there are a lot of transmitted upper airway sounds so incentive spirometry and flutter valve were ordered. She did have slight increase in white blood cell count but neutrophils still 48% and no other signs symptoms of infection so unclear clinical significance and with no fever or other new complaints do not think patient should be recultured and started on broad-spectrum antibiotics and do not feel this needs acutely worked up further. Discharge instructions as follows: -Would recommend lab work (BMP) to check your kidney function in 2 to 3 days through your primary care physician's office. Please call their office upon discharge to obtain order for lab work. -Your lisinopril has been held due to your kidney function, this can be resumed at the discretion of your primary care physician/prescribing physician based on your lab work and blood pressure moving forward -You have been feeling somewhat tired which may impart be due to medications, would recommend continue to hold your gabapentin until labs are checked and symptoms improve and would recommend decreasing hydroxyzine to 10 mg 3 times a day due to the sedating nature of this medication as well -Your insulin regimen has been changed based on your blood sugars in the hospital to insulin lispro 20 mg subcu 3 times daily AC with sliding scale insulin but you will continue your 55 units of insulin glargine at bedtime -You would also benefit from using an albuterol inhaler as needed for wheezing and it is advised to have a sleep study done on an outpatient basis as he may have sleep apnea -Please call your primary care provider's office upon discharge to schedule a hospital follow up within 1 week. -For any concerning signs or symptoms please call 911 or proceed to the nearest emergency department Physical Exam Narrative General: Alert, oriented, no apparent distress HEENT: Atraumatic, normocephalic Eyes: Anicteric, normal conjunctiva, extraocular movements grossly intact Neck: Supple Respiratory: No increased respiratory effort, some transmitted upper airway sounds Cardiovascular: Regular rate GI: Soft, nontender, nondistended Extremities: Trace lower extremity edema Musculoskeletal: Moving all extremities Neuro: No overt focal neurological deficits, does have slight tremor in hands Skin: No rashes appreciated Psych: Cooperative Weight / BMI Weight Weight: 111.8 kg Body Mass Index (BMI) 49.6 ABG / Lab / Microbiology Data 12/11/22 06:30 12/11/22 06:30 Laboratory: Laboratory Results - last 24 hr 12/10/22 16:44: POC Glucose 166 H 12/10/22 22:02: POC Glucose 258 H 12/11/22 06:30: WBC 12.7 H, RBC 5.06, Hgb 12.5, Hct 39.1, MCV 77.3 L, MCH 24.7 L, MCHC 32.0, RDW Std Deviation 47.7 H, RDW Coeff of Doris 17.1 H, Plt Count 189, MPV 8.6, Immature Gran % (Auto) 1.000 H, Neut % (Auto) 48.3, Lymph % (Auto) 45.4 H, [place] % (Auto) 4.9, Eos % (Auto) 0.1, Baso % (Auto) 0.3, Absolute Neuts (auto) 6.1, Absolute Lymphs (auto) 5.77 H, Nucleated RBC % 0, Differential Comment SCANNED, Sodium 136, Potassium 4.4, Chloride 102, Carbon Dioxide 29.0, Anion Gap 5, BUN 67 H, Creatinine 1.90 H, Estim Creat Clear Calc 55.57, Est GFR (MDRD) Af Amer 35 L, Est GFR (MDRD) Non-Af 29 L, BUN/Creatinine Ratio 35.3 H, Glucose 149 H, Calcium 9.3, Total Bilirubin 0.30, AST 30, ALT 34, Alkaline Phosphatase 72, Ammonia 25.0, Total Protein 7.7, Albumin 2.9 L, Globulin 4.8 H, Albumin/Globulin Ratio 0.6 L 12/11/22 07:54: POC Glucose 130 H 12/11/22 11:53: POC Glucose 158 H Microbiology: Microbiology 12/06/22 14:45 Blood Culture (Wb) - Anticubital Right Blood Culture - Preliminary No growth in 48 hours. 12/06/22 14:25 Blood Culture (Wb) - Right Forearm Blood Culture - Preliminary No growth in 48 hours. 12/06/22 15:05 Urine, Catheterized Urine Culture - Final Culture exhibits no growth. 12/06/22 19:30 Mucosa - Nasopharyngeal Respiratory Panel (PCR) - Final Parainfluenza 3 12/06/22 14:45 Nasal Secretion SARS-CoV-2 & FLU Antigen (Rapid) - Final D/C Instructions Discharge Diet: Carb Control Diet and - (Cardiac) Meaningful Use Info Meaningful Use Diagnoses (Choose all that apply): None applicable Discharge Plan Admission Admit Date/Time: 12/06/22 17:39 Primary Reason for Your Visit: Shortness of breath Attending Provider: Danae Su Primary Care Provider: Care Physician,No Primary Consulting Providers: Tyler Faustin Instructions Patient Instructions: ED URI, Viral, No Abx (Adult) Additional Instructions / Restrictions: DISCHARGE INSTRUCTIONS PLEASE READ *Please take this with you to your next doctors appointment* -Would recommend lab work (BMP) to check your kidney function in 2 to 3 days through your primary care physician's office. Please call their office upon discharge to obtain order for lab work. -Your lisinopril has been held due to your kidney function, this can be resumed at the discretion of your primary care physician/prescribing physician based on your lab work and blood pressure moving forward -You have been feeling somewhat tired which may impart be due to medications, would recommend continue to hold your gabapentin until labs are checked and symptoms improve and would recommend decreasing hydroxyzine to 10 mg 3 times a day due to the sedating nature of this medication as well -Your insulin regimen has been changed based on your blood sugars in the hospital to insulin lispro 20 mg subcu 3 times daily AC with sliding scale insulin but you will continue your 55 units of insulin glargine at bedtime -You would also benefit from using an albuterol inhaler as needed for wheezing and it is advised to have a sleep study done on an outpatient basis as he may have sleep apnea -Please call your primary care provider's office upon discharge to schedule a hospital follow up within 1 week. -For any concerning signs or symptoms please call 911 or proceed to the nearest emergency department Discharge Orders/Prescriptions Prescriptions: New hydroxyzine HCl 10 mg Tablet 10 mg PO TID 14 Days Qty: 42 0RF albuterol sulfate [ProAir HFA] 90 mcg/actuation HFA aerosol inhaler 2 puff inhalation Q6H PRN (Reason: shortness of breath or wheezing) Qty: 8.5 0RF Continued simvastatin 20 mg tablet 20 mg PO QHS sertraline 25 mg tablet 25 mg PO DAILY ziprasidone HCl 80 mg capsule 80 mg PO DAILY Rx Instructions: give with food (meal/snack) doxepin 10 mg capsule 10 mg PO DAILY omeprazole 20 mg capsule,delayed release(DR/EC) 20 mg PO DAILY (DME) [employer] Jolie 2 Alvord Misc See Rx Instructions .Route Qty: 1 0RF Rx Instructions: As directed divalproex 125 mg tablet,delayed release (DR/EC) 125 mg PO BID albuterol sulfate [Ventolin HFA] 90 mcg/actuation HFA aerosol inhaler 2 puff inhalation Q4H PRN (Reason: shortness of breath or wheezing) nystatin [Nystop] 100,000 unit/gram Powder 1 applic TOPICAL BID acetaminophen 325 mg tablet 650 mg PO BID PRN (Reason: PAIN AND FEVER) sertraline 100 mg tablet 100 mg PO QHS olanzapine 10 mg tablet 10 mg PO QHS ergocalciferol (vitamin D2) [Drisdol] 1,250 mcg (50,000 unit) Capsule 1,250 mcg PO .BIW furosemide 20 mg tablet 20 mg PO DAILY Qty: 30 1RF fesoterodine [Toviaz] 8 mg tablet extended release 24 hr 8 mg PO DAILY docusate sodium [Colace] 100 mg capsule 100 mg PO BID polyethylene glycol 3350 [Miralax] 17 gram/dose powder 17 g PO DAILY Gemtesa 75 mg tablet 75 mg PO DAILY HUMALOG KWIK PEN 100U/ML See Protocol Protocol: 6. Sliding Scale Insulin Custom Condition: 180-220 Dose/Route: 3 Instruction: TID CM Condition: 221-260 Dose/Route: 5 Instruction: TID CM Condition: >260 Dose/Route: 8 Instruction: TID CM Protocol Text: Custom Sliding Scale insulin glargine [Lantus Solostar U-100 Insulin] 100 unit/mL (3 mL) insulin pen 55 unit subcut QHS amlodipine 5 mg tablet 5 mg PO DAILY Qty: 30 6RF (DME) FreeStyle Jolie 2 Sensor Kit See Rx Instructions .Route Qty: 2 5RF Rx Instructions: 1 sensor q 14 days Changed insulin lispro 100 unit/mL insulin pen 20 unit subcut TID MDD 135 30 Days Qty: 31.5 5RF Held gabapentin 300 mg capsule 300 mg PO DAILY Hold Instructions: Resume on 12/18/22. lisinopril 5 mg Tablet 5 mg PO DAILY Qty: 30 0RF Hold Instructions: Resume on 12/25/22. Discontinued hydroxyzine HCl 25 mg tablet 25 mg PO TID Referrals / Follow Up: Care Physician,No Primary [Primary Care Provider] - Within 1 Week ( -If you do not have a primary care physician of list of local primary care physicians can be provided for you upon discharge. Please ask for this list prior to discharge) Disposition Disposition (needs filled in before D/C Order can be placed): Assisted Living Charges/Coding Visit Charges Inpatient E&M: 70061 Disch Hosp >30min
[2022-12-11] MEDS: Fluticasone 0.05% 1 SPRAY NASAL.SRY NASAL (14:48)
--- NOTE | 2022-12-11 15:08 | CASEMGMT ---
Discharge Planning Discharge Summary faxed to [facility]. Phone call placed to nurse to notify of pickup time. Nursing and patient notified. Patient will be transferred via wc by [facility] at 4:30p. Grace Sanchez, Discharge Planning Asst.
--- NOTE | 2022-12-11 15:49 | NURSING ---
report called to [facility] nurse Natasha.
== END 2022-12-11 16:49 | disposition home or self-care (01) | DRG 723 ==
LOC: ED 16:14 → PCU 16:57
PROVIDERS: Admitting Provider Family Medicine; Emergency Provider Emergency Medicine; Visit Provider Internal Medicine
DX: B34.8 Other viral infections of unspecified site (principal); J96.01 Acute respiratory failure with hypoxia; N17.9 Acute kidney failure, unspecified; I13.0 Hypertensive heart and chronic kidney disease with heart failure and stage 1 through stage 4 chronic kidney disease, or unspecified chronic kidney disease; E87.1 Hypo-osmolality and hyponatremia; B37.2 Candidiasis of skin and nail; I50.22 Chronic systolic (congestive) heart failure; E11.22 Type 2 diabetes mellitus with diabetic chronic kidney disease; E11.65 Type 2 diabetes mellitus with hyperglycemia; Z79.4 Long term (current) use of insulin; N18.32 Chronic kidney disease, stage 3b; F39 Unspecified mood [affective] disorder; F32.A Depression, unspecified; E78.5 Hyperlipidemia, unspecified; E87.5 Hyperkalemia; M17.0 Bilateral primary osteoarthritis of knee; G47.30 Sleep apnea, unspecified; F41.9 Anxiety disorder, unspecified; Z79.899 Other long term (current) drug therapy; Z20.822 Contact with and (suspected) exposure to COVID-19; Z99.3 Dependence on wheelchair; Z87.891 Personal history of nicotine dependence
CPT/HCPCS: 36415; 36600; 71045; 76770; 78598; 80048; 80053; 80164; 81001; 82140; 82436; 82570; 82803; 82962; 83605; 83735; 83880; 84133; 84145; 84300; 84540; 85025; 85379; 85610; 85730; 87040; 87086; 87428; 87633; 93005; 93970; 94002; 94640; 94668; 94762; 97110; 97161; 97165; 97530; 97535; 99285; A9540; A9567; J7030; J7040; A4216; J0612

== ENCOUNTER 2023-01-20 12:05 | Emergency (ER) | payer MEDICAID, SELFPAY ==
[2023-01-20 12:07] VITALS: BP 158/87; PULSE 82; RESP 24; TEMP 35.9; O2SAT 93; BMI 52.6
[2023-01-20 12:26] VITALS: BP 159/93; PULSE 85; O2SAT 92
--- NOTE | 2023-01-20 12:32 | EKG12_ITS ---
Test Reason : Blood Pressure : / mmHG Vent. Rate : 086 BPM Atrial Rate : 086 BPM P-R Int : 156 ms QRS Dur : 096 ms QT Int : 434 ms P-R-T Axes : 058 025 064 degrees QTc Int : 519 ms Normal sinus rhythm Prolonged QT Abnormal ECG When compared with ECG of 06-DEC-2022 13:33, No significant change was found Confirmed by EDITH NAVA, ANTHONY ([id number]), editorial clerk DESHAWN UQEZADA ([id number]) on 03/28/2023 6:59:58 AM Referred By: Confirmed By:ANTHONY SHARMA MD
[2023-01-20 13:22] LABS: Absolute Lymphocyte Count 1.46 X10^3/uL (0.83-4.51); Basophil# 0.03 X10^3/uL; Basophil% 0.4 % (0-1); Eosinophil# 0.03 X10^3/uL; Eosinophils% 0.4 % (0-5); Hematocrit 38.1 % (37-47); Hemoglobin 12.4 g/dL (12.0-15.0); Lymphocyte # 1.46 X10^3/ul (0.83-4.51); Lymphocyte % 21.2 % (19-41); Mean Corp Hgb Conc 32.5 g/dL (32-36); Mean Corpuscular Hgb 25.8 pg (27.0-32.0); Mean Corpuscular Volume 79.2 fL (81-99); Mean Platelet Vol. 8.6 fl (6.2-12.0); Monocyte# 0.34 X10^3/uL; Monocyte% 4.9 % (0-10); NRBC Flagged by Analyzer 0 % (0-5); Neutrophil # 4.99 X10^3/uL (2.7-7.7); Neutrophil % 72.7 % (47-70); Platelet Count 154 K/mm3 (150-450); RBC Distribution Width CV 15.4 % (11.6-14.6); RBC Distribution Width SD 44.2 fl (35.1-43.9); Red Blood Count 4.81 M/mm3 (4.2-5.4); White Blood Count 6.9 K/mm3 (4.4-11.0)
[2023-01-20] MEDS: 0.9% Normal Saline 1,000 ML 150 ML IV (13:26)
[2023-01-20] MEDS: proMETHazine 25 MG/ML Syringe 12.5 MG IM (13:26)
[2023-01-20 13:37] LABS: AST(SGOT) 33 U/L (15-37); Alanine Aminotransfer ALT/SGPT 7 U/L (13-56); Albumin, Serum 3.2 g/dL (3.2-5.0); Alkaline Phosphatase 93 U/L (45-117); Anion Gap 5 (5-15); BUN 34 mg/dL (7-18); Bilirubin, Direct 0.13 mg/dL (0.00-0.30); Calcium,Total 9.4 mg/dL (8.5-10.1); Chloride 98 mmol/L (98-107); Creatinine, Serum 1.79 mg/dL (0.55-1.02); EST Glomerular Filtration Rate 31 mL/min (>60); Est Glom Filt Rate - Afr Amer 37 mL/min (>60); Estimated Creatinine Clearance 62.36 ml/min; Globulin 4.6 g/dL (2.2-4.2); Glucose 272 mg/dL (74-106); Lipase 45 U/L (13-75); Potassium 5.5 mmol/L (3.5-5.1); Protein, Total 7.8 g/dL (6.4-8.2); Sodium Level 135 mmol/L (136-145)
[2023-01-20 13:49] VITALS: BP 167/121; PULSE 86; RESP 17; O2SAT 93
[2023-01-20 14:42] LABS: Bedside Glucose 258 mg/dL (74-106)
[2023-01-20 14:42] LABS: Bedside Glucose 254 mg/dL (74-106)
[2023-01-20 14:48] LABS: Bacteria 0 SEEN /hpf (None Seen); Mucous, Urine 0 SEEN /hpf (<or=2+); White Blood Cells 0 SEEN /hpf (0-5)
[2023-01-20 14:55] LABS: Color, Urine Yellow (Yellow); Glucose, Dipstick 100 mg/dl (Normal); Ketone-Dipstick Negative (Negative); Leukocyte Esterase-Dipstick Negative /ul (Negative); Nitrite-Dipstick Negative (Negative); Occult Blood-Urine 50 /ul (Negative); Protein-Dipstick 100 mg/dl (Negative); Specific Gravity, Urine 1.015 (1.002-1.030); Urine Bilirubin Dipstick Negative (Negative); Urine Clarity Sl. Cloudy (Clear); Urine Urobilinogen Normal (Normal)
[2023-01-20 15:01] LABS: Red Blood Cells-Urine 0-5 SEEN /hpf (0-5); Squamous Epithelial Cells - UA 0-5 SEEN /hpf (5-10)
--- NOTE | 2023-01-20 15:31 | EX.ED.DYSGE1 ---
HPI History of Present Illness Chief Complaint: Nausea/Vomiting Informant: patient Onset/Context/Timing Onset: Today Narrative Narrative: Patient presents via EMS secondary to nausea and vomiting. She states she took her insulin and her medication on an empty stomach this morning and then developed nausea and vomiting. She tells me that she always takes her medication on an empty stomach is not different than normal. She was given Zofran via EMS. [facility] Medical History (Updated 01/20/23 @ 15:[address] Meghan Aguilar MD) Abnormal echocardiogram Acute on chronic renal insufficiency Anxiety Chronic pain Depression Diabetes Former smoker Hepatitis Hepatitis C History of mental problems Hypertension Hypoxia Kidney stones Tonsillectomy planned Type 2 diabetes mellitus Home Medications doxepin 10 mg capsule 10 mg PO DAILY SLEEP 05/29/22 [History Last Taken 12/05/22] flash glucose scanning reader ([employer] Jolie 2 [place]) #1 ea 05/29/22 [Rx Last Taken Unknown] gabapentin 300 mg capsule 300 mg PO DAILY 05/29/22 [History Last Taken 12/05/22] omeprazole 20 mg capsule,delayed release 20 mg PO DAILY GERD 05/29/22 [History Last Taken 12/05/22] sertraline 25 mg tablet 25 mg PO DAILY MOOD 05/29/22 [History Last Taken 12/05/22] simvastatin 20 mg tablet 20 mg PO QHS CHOLESTEROL 05/29/22 [History Last Taken 12/04/22] ziprasidone HCl 80 mg capsule 80 mg PO DAILY MOOD 05/29/22 [History Last Taken 12/03/22] amlodipine 5 mg tablet 5 mg PO DAILY #30 tabs 07/15/22 [Rx Last Taken 12/05/22] acetaminophen 325 mg tablet 650 mg PO BID PRN PAIN AND FEVER 08/28/22 [History Last Taken 08/27/22] ergocalciferol (vitamin D2) 1,250 mcg (50,000 unit) capsule (Drisdol) 1,250 mcg PO .BIW SUPPLEMENT 08/28/22 [History Last Taken 12/02/22] nystatin 100,000 unit/gram topical powder (Nystop) 1 applic topical BID SKIN 08/28/22 [History Last Taken Unknown] olanzapine 10 mg tablet 10 mg PO QHS MOOD 08/28/22 [History Last Taken 12/05/22] sertraline 100 mg tablet 100 mg PO QHS MOOD 08/28/22 [History Last Taken 12/05/22] furosemide 20 mg tablet 20 mg PO DAILY #30 tabs 08/31/22 [Rx Last Taken 12/05/22] divalproex 125 mg tablet,delayed release 125 mg PO BID 09/23/22 [History Last Taken 12/05/22] flash glucose sensor ([employer] Jolie 2 Sensor kit) #2 ea 09/23/22 [Rx Last Taken Unknown] HUMALOG KWIK PEN 100U/ML See Protocol DM 12/06/22 [History Last Taken 12/05/22] docusate sodium 100 mg capsule (Colace) 100 mg PO BID 12/06/22 [History Last Taken 12/05/22] fesoterodine 8 mg tablet,extended release 24 hr (Toviaz) 8 mg PO DAILY 12/06/22 [History Last Taken 12/05/22] insulin glargine 100 unit/mL (3 mL) subcutaneous pen (Lantus Solostar U-100 Insulin) 55 unit subcut QHS 12/06/22 [History Last Taken 12/05/22] polyethylene glycol 3350 17 gram/dose oral powder (Miralax) 17 g PO DAILY 12/06/22 [History Last Taken 12/05/22] albuterol sulfate 90 mcg/actuation aerosol inhaler (ProAir HFA) 2 puff inhalation Q6H PRN shortness of breath or wheezing #8.5 grams 12/11/22 [Rx Last Taken Unknown] hydroxyzine HCl 10 mg tablet 10 mg PO TID 14 days #42 tabs 12/11/22 [Rx Last Taken Unknown] insulin lispro 100 unit/mL subcutaneous pen 20 unit (0.2 mL) subcut TID DM 30 days #31.5 mL 12/11/22 [Rx Last Taken 12/05/22] aspirin 81 mg tablet,delayed release 81 mg PO DAILY #90 tabs 12/18/22 [Rx Last Taken Unknown] metoprolol succinate 50 mg tablet,extended release 24 hr 50 mg PO DAILY 01/15/23 [History Last Taken Unknown] promethazine 25 mg tablet 25 mg PO TID PRN nausea and vomiting #10 tabs 01/20/23 [Rx Last Taken Unknown] Allergy/AdvReac Type Severity Reaction Status Date / Time codeine Allergy Hives Verified 01/20/23 12:16 prochlorperazine edisylate Allergy Swelling Verified 01/20/23 12:16 [From Compazine] prochlorperazine maleate Allergy Swelling Verified 01/20/23 12:16 [From Compazine] Family History Other Alcohol abuse Cancer Heart disease Hypertension Mental disorder Surgical History Hx of tonsillectomy Social History Smoking Status: Never smoker alcohol intake: never substance use type: does not use caffeine: Yes Type: coffee what type of physical activity do you participate in: none ROS ROS ED Constitutional Constitutional ED: Denies chills or fever(s) Eyes Eyes: Denies change in vision or discharge from eye(s) ENT ENT ED: Denies discharge from eye(s), rhinorrhea or sore throat Cardiovascular Cardiovascular: Denies chest pain or palpitations Respiratory/Chest Respiratory/Chest: Denies cough or dyspnea Gastrointestinal Gastrointestinal: Reports abdominal pain, nausea and vomiting; Denies diarrhea Genitourinary Genitourinary ED: Denies dysuria Musculoskeletal Musculoskeletal: Denies back pain or extremity pain Integumentary Denies Abrasions or rash Neurologic Neurologic: Denies headache(s) or weakness Psychiatric Psychiatric: Denies anxiety or depression Allergic/Immunologic Allergic/Immunologic ED: Denies lip swelling or urticaria EXAM Physical Exam Const Vital Signs: 01/20/23 12:07 01/20/23 12:26 01/20/23 13:49 Temperature 96.6 F L Temperature Source Temporal Pulse Rate 82 85 86 Respiratory Rate 24 H 17 Blood Pressure 158/87 H 159/93 H 167/121 H Blood Pressure Mean 110 115 136 Pulse Ox 93 92 93 Oxygen Delivery Method Room Air Room Air Room Air Positive well nourished and well developed General Appearance ED: well developed HEENT Reports normocephalic and head/scalp atraumatic Eyes PERRL and EOMs intact bilaterally Neck supple Chest Wall inspection of chest normal and palpation of chest normal Resp normal respiratory effort and clear to auscultation bilaterally Cardio regular rate and regular rhythm GI GI Narrative: Mild epigastric tenderness palpation. No guarding or rebound. Hypoactive but present bowel sounds are noted. Palpation: soft Extremity normal to inspection Neuro oriented x3 and no sensory deficits noted Sensorium / Orientation: alert Motor Exam: strength 5/5 throughout Psych Mood & Affect: anxious Skin no rashes or lesions noted MDM MDM MDM Narrative Medical decision making narrative: Patient reported no significant improvement in her nausea with Zofran. She was given IM Phenergan. She is also given IV fluids. Labwork obtained to evaluate for leukocytosis, anemia, and electrolyte derangement. Urinalysis obtained to evaluate for infection/hematuria. EKG obtained to evaluate for cardiac arrhythmia/ischemia. History & Record Review Discussion w/independent historian: EMS personnel and Patient Lab Data Attestation: I reviewed the patient's lab results. Labs: Laboratory Results - last 24 hr 01/20/23 01/20/23 01/20/23 12:52 13:16 14:22 WBC 6.9 RBC 4.81 Hgb 12.4 Hct 38.1 MCV 79.2 L MCH 25.8 L MCHC 32.5 RDW Std Deviation 44.2 H RDW Coeff of Doris 15.4 H Plt Count 154 MPV 8.6 Immature Gran % (Auto) 0.400 Neut % (Auto) 72.7 H Lymph % (Auto) 21.2 [place] % (Auto) 4.9 Eos % (Auto) 0.4 Baso % (Auto) 0.4 Absolute Neuts (auto) 5.0 Absolute Lymphs (auto) 1.46 Nucleated RBC % 0 Sodium 135 L Potassium 5.5 H Chloride 98 Carbon Dioxide 32.0 Anion Gap 5 BUN 34 H Creatinine 1.79 H Estim Creat Clear Calc 62.36 Est GFR (MDRD) Af Amer 37 L Est GFR (MDRD) Non-Af 31 L BUN/Creatinine Ratio 19.0 Glucose 272 H Calcium 9.4 Total Bilirubin 0.30 Direct Bilirubin 0.13 AST 33 ALT 7 L Alkaline Phosphatase 93 Total Protein 7.8 Albumin 3.2 Globulin 4.6 H Lipase 45 Urine Color Urine Clarity Urine pH Ur Specific [place] Urine Protein Urine Glucose (UA) Urine Ketones Urine Occult Blood Urine Nitrite Urine Bilirubin Urine Urobilinogen Ur Leukocyte Esterase Urine RBC Urine WBC Ur Squamous Epith Cells Urine Bacteria Urine Mucus POC Glucose 254 H 258 H 01/20/23 14:41 WBC RBC Hgb Hct MCV MCH MCHC RDW Std Deviation RDW Coeff of Doris Plt Count MPV Immature Gran % (Auto) Neut % (Auto) Lymph % (Auto) [place] % (Auto) Eos % (Auto) Baso % (Auto) Absolute Neuts (auto) Absolute Lymphs (auto) Nucleated RBC % Sodium Potassium Chloride Carbon Dioxide Anion Gap BUN Creatinine Estim Creat Clear Calc Est GFR (MDRD) Af Amer Est GFR (MDRD) Non-Af BUN/Creatinine Ratio Glucose Calcium Total Bilirubin Direct Bilirubin AST ALT Alkaline Phosphatase Total Protein Albumin Globulin Lipase Urine Color Yellow Urine Clarity Sl. Cloudy Urine pH 6.0 Ur Specific [place] 1.015 Urine Protein 100 H Urine Glucose (UA) 100 H Urine Ketones Negative Urine Occult Blood 50 H Urine Nitrite Negative Urine Bilirubin Negative Urine Urobilinogen Normal Ur Leukocyte Esterase Negative Urine RBC 0-5 SEEN Urine WBC 0 SEEN Ur Squamous Epith Cells 0-5 SEEN Urine Bacteria 0 SEEN Urine Mucus 0 SEEN POC Glucose EKG Initial EKG: Attestation: I personally reviewed and interpreted this EKG as follows: Interpretation: Sinus Rhythm (Sinus 86 bpm with no acute ischemia. QTc is 519.) Treatment and Re-Evaluation :: CBC was normal white count at 6.9 with a hemoglobin of 12.4. Chemistry studies reveal sodium of 135 which appears consistent with her baseline. Potassium is slightly elevated at 5.5. BUN is 34 and creatinine is 1.79. This is actually slightly improved when compared to her prior values. EKG is sinus at 86 with no acute ischemia. I do not see any EKG changes associated with hyperkalemia. Urinalysis reveals 100 of glucose with no evidence of infection or hematuria. On repeat evaluation patient is resting comfortably. She states her nausea is significantly improved. I will write her prescription for Phenergan. Return instructions are given. Discharge Plan Triage Chief Complaint: Nausea/Vomiting ED Provider: Meghan Aguilar Dx/Rx/DC Orders Clinical Impression: Abdominal pain, Vomiting Instructions: ED Abdominal Pain Unkn Cause Fem, ED Vomiting (Adult) Prescriptions: New promethazine 25 mg tablet 25 mg PO TID PRN (Reason: nausea and vomiting) Qty: 10 0RF No Action simvastatin 20 mg tablet 20 mg PO QHS gabapentin 300 mg capsule 300 mg PO DAILY Hold Instructions: Resume on 12/18/22. sertraline 25 mg tablet 25 mg PO DAILY ziprasidone HCl 80 mg capsule 80 mg PO DAILY Rx Instructions: give with food (meal/snack) doxepin 10 mg capsule 10 mg PO DAILY omeprazole 20 mg capsule,delayed release(DR/EC) 20 mg PO DAILY (DME) FreeStyle Jolie 2 [place] Misc See Rx Instructions .Route Qty: 1 0RF Rx Instructions: As directed divalproex 125 mg tablet,delayed release (DR/EC) 125 mg PO BID metoprolol succinate 50 mg tablet extended release 24 hr 50 mg PO DAILY aspirin 81 mg tablet,delayed release (DR/EC) 81 mg PO DAILY Qty: 90 3RF nystatin [Nystop] 100,000 unit/gram Powder 1 applic TOPICAL BID acetaminophen 325 mg tablet 650 mg PO BID PRN (Reason: PAIN AND FEVER) sertraline 100 mg tablet 100 mg PO QHS olanzapine 10 mg tablet 10 mg PO QHS ergocalciferol (vitamin D2) [Drisdol] 1,250 mcg (50,000 unit) Capsule 1,250 mcg PO .BIW furosemide 20 mg tablet 20 mg PO DAILY Qty: 30 1RF fesoterodine [Toviaz] 8 mg tablet extended release 24 hr 8 mg PO DAILY docusate sodium [Colace] 100 mg capsule 100 mg PO BID polyethylene glycol 3350 [Miralax] 17 gram/dose powder 17 g PO DAILY HUMALOG KWIK PEN 100U/ML See Protocol Protocol: 6. Sliding Scale Insulin Custom Condition: 180-220 Dose/Route: 3 Instruction: TID CM Condition: 221-260 Dose/Route: 5 Instruction: TID CM Condition: >260 Dose/Route: 8 Instruction: TID CM Protocol Text: Custom Sliding Scale insulin glargine [Lantus Solostar U-100 Insulin] 100 unit/mL (3 mL) insulin pen 55 unit subcut QHS hydroxyzine HCl 10 mg Tablet 10 mg PO TID 14 Days Qty: 42 0RF albuterol sulfate [ProAir HFA] 90 mcg/actuation HFA aerosol inhaler 2 puff inhalation Q6H PRN (Reason: shortness of breath or wheezing) Qty: 8.5 0RF insulin lispro 100 unit/mL insulin pen 20 unit subcut TID MDD 135 30 Days Qty: 31.5 5RF amlodipine 5 mg tablet 5 mg PO DAILY Qty: 30 6RF (DME) FreeStyle Jolie 2 Sensor Kit See Rx Instructions .Route Qty: 2 5RF Rx Instructions: 1 sensor q 14 days Primary Care Provider: Care Physician,No Primary Referrals: Care Physician,No Primary [Primary Care Provider] - Activity Restrictions/Additional Instructions: Follow-up with your physician in the next 3 to 5 days if not improving. Disposition Disposition: Home, Self Care
== END 2023-01-20 16:37 | disposition home or self-care (01) ==
PROVIDERS: Emergency Provider Emergency Medicine; Visit Provider Emergency Medicine
DX: R11.2 Nausea with vomiting, unspecified (principal); E11.9 Type 2 diabetes mellitus without complications; Z79.4 Long term (current) use of insulin; I10 Essential (primary) hypertension
CPT/HCPCS: 80048; 80076; 81001; 82962; 83690; 85025; 93005; 96360; 96361; 96372; 99284; J7030; A4216

== ENCOUNTER 2023-08-27 13:10 | Emergency (ER) | payer MEDICAID, SELFPAY ==
[2023-08-27] VITALS (7 sets, daily range): BP systolic 91–141; BP diastolic 59–86; PULSE 70–75; RESP 15–22; TEMP 36.2–36.7; O2SAT 86–95; BMI 56.5
--- NOTE | 2023-08-27 14:04 | EKG12_ITS ---
Test Reason : WEAKNESS Blood Pressure : / mmHG Vent. Rate : 068 BPM Atrial Rate : 068 BPM P-R Int : 154 ms QRS Dur : 088 ms QT Int : 446 ms P-R-T Axes : 061 002 056 degrees QTc Int : 474 ms Normal sinus rhythm Normal ECG Confirmed by Bsailio Black ([id number]), editor news CHELSEY TYSON ([id number]) on 08/28/2023 10:46:15 AM Referred By: Confirmed By:Basilio Black
--- NOTE | 2023-08-27 14:06 | EX.ED.DYSGE1 ---
HPI History of Present Illness Chief Complaint: Fatigue Informant: patient and EMS Narrative Narrative: Sent in from adult daycare for increasing fatigue and strong urine odor. Patient from [facility]. She is brought in 86% room air with no home oxygen. She does admit to a cough. She denies dysuria or frequency. States has chills. Blood glucose 289 per EMS. History of stage IV CKD type 2 diabetes. [facility] Medical History Abnormal cardiovascular stress test Abnormal echocardiogram Acute non-ST elevation myocardial infarction (NSTEMI) Acute on chronic renal insufficiency Anxiety Cardiomyopathy Chronic pain CKD (chronic kidney disease) stage 3, GFR 30-59 ml/min CKD (chronic kidney disease) stage 4, GFR 15-29 ml/min Depression Diabetes Essential hypertension Former smoker Hepatitis Hepatitis C History of mental problems Hyperkalemia Hyperlipidemia Hypertension Hypoxia Kidney stones Microalbuminuria Obesity Parainfluenza Right knee DJD Right knee pain Tonsillectomy planned Type 2 diabetes mellitus Home Medications doxepin 10 mg capsule 10 mg PO QHS DEPRESSION 05/29/22 [History Last Taken 08/26/23] flash glucose scanning reader ([employer] Jolie 2 [place]) #1 ea 05/29/22 [Rx Last Taken Unknown] gabapentin 300 mg capsule 300 mg PO DAILY NEUROPATHY 05/29/22 [History Last Taken 08/26/23] omeprazole 20 mg capsule,delayed release 20 mg PO DAILY GERD 05/29/22 [History Last Taken 08/26/23] simvastatin 20 mg tablet 20 mg PO QHS CHOLESTEROL 05/29/22 [History Last Taken 08/26/23] ziprasidone HCl 80 mg capsule 80 mg PO DAILY BIPOLAR DISORDER 05/29/22 [History Last Taken 08/26/23] amlodipine 5 mg tablet 5 mg PO DAILY BLOOD PRESSURE #30 tabs 07/15/22 [Rx Last Taken 08/26/23] acetaminophen 325 mg tablet 650 mg PO BID PRN PAIN/FEVER 08/28/22 [History Last Taken 08/26/23] ergocalciferol (vitamin D2) 1,250 mcg (50,000 unit) capsule (Drisdol) 1,250 mcg PO MOTH SUPPLEMENT 08/28/22 [History Last Taken 08/25/23] olanzapine 10 mg tablet 10 mg PO QHS BIPOLAR DISORDER 03/22/23 [History Last Taken 08/26/23] sertraline 100 mg tablet 100 mg PO QHS DEPRESSION 08/28/22 [History Last Taken 08/26/23] furosemide 20 mg tablet 20 mg PO DAILY EDEMA #30 tabs 08/31/22 [Rx Last Taken 08/26/23] flash glucose sensor ([employer] Jolie 2 Sensor kit) #2 ea 09/23/22 [Rx Last Taken Unknown] docusate sodium 100 mg capsule (Colace) 100 mg PO BID CONSTIPATION 12/06/22 [History Last Taken 08/26/23] polyethylene glycol 3350 17 gram/dose oral powder (Miralax) 17 g PO DAILY CONSTIPATION 12/06/22 [History Last Taken 08/26/23] aspirin 81 mg tablet,delayed release 81 mg PO DAILY HEART HEALTH #90 tabs 12/18/22 [Rx Last Taken 08/26/23] promethazine 25 mg tablet 25 mg PO TID PRN NAUSEA/VOMITING #10 tabs 01/20/23 [Rx Last Taken Unknown] divalproex 125 mg tablet,delayed release 375 mg PO BID BIPOLAR DISORDER 07/07/23 [History Last Taken 08/26/23] fesoterodine 8 mg tablet,extended release 24 hr (Toviaz) 8 mg PO DAILY OVERACTIVE BLADDER 07/07/23 [History Last Taken 08/26/23] insulin aspart U-100 100 unit/mL (3 mL) subcutaneous pen 35 unit subcut LUNCH DIABETES 07/07/23 [History Last Taken 08/26/23] insulin aspart U-100 100 unit/mL (3 mL) subcutaneous pen 37 unit subcut DINNER DIABETES 07/07/23 [History Last Taken 08/26/23] insulin glargine 100 unit/mL (3 mL) subcutaneous pen (Lantus Solostar U-100 Insulin) 50 unit subcut QHS 07/07/23 [History Last Taken 08/26/23] metoprolol succinate 100 mg tablet,extended release 24 hr 100 mg PO DAILY BLOOD PRESSURE #90 tabs 07/07/23 [Rx Last Taken 08/26/23] vibegron 75 mg tablet (Gemtesa) 75 mg PO DAILY OVERACTIVE BLADDER 07/07/23 [History Last Taken 08/26/23] albuterol sulfate 2.5 mg/3 mL (0.083 %) solution for nebulization 2.5 mg inhalation Q4H PRN SHORTNESS OF BREATH 08/27/23 [History Last Taken Unknown] albuterol sulfate 90 mcg/actuation aerosol inhaler (ProAir HFA) 2 puff inhalation Q4H PRN SHORTNESS OF BREATH/WHEEZING 08/27/23 [History Last Taken Unknown] cetirizine 5 mg tablet 5 mg PO DAILY PRN ALLERGIES 08/27/23 [History Last Taken Unknown] empagliflozin 25 mg tablet (Jardiance) 25 mg PO DAILY DIABETES 08/27/23 [History Last Taken 08/26/23] hydroxyzine pamoate 25 mg capsule 25 mg PO TID PRN ANXIETY 08/27/23 [History Last Taken Unknown] insulin aspart U-100 100 unit/mL (3 mL) subcutaneous pen 40 unit subcut BREAKFAST DIABETES 08/27/23 [History Last Taken 08/25/23] insulin aspart U-100 100 unit/mL (3 mL) subcutaneous pen See Protocol subcut TIDCM DIABETES 08/27/23 [History Last Taken 08/26/23] Allergy/AdvReac Type Severity Reaction Status Date / Time codeine Allergy Hives Verified 08/27/23 13:15 prochlorperazine edisylate Allergy Swelling Verified 08/27/23 13:15 [From Compazine] prochlorperazine maleate Allergy Swelling Verified 08/27/23 13:15 [From Compazine] Family History Other Alcohol abuse Cancer Heart disease Hypertension Mental disorder Surgical History Hx of tonsillectomy Social History Smoking Status: Never smoker alcohol intake: never substance use type: does not use caffeine: Yes Type: coffee what type of physical activity do you participate in: none ROS ROS ED Constitutional Constitutional ED: Denies chills Eyes Eyes: Denies change in vision ENT ENT ED: Denies dysphagia or sore throat Cardiovascular Cardiovascular: Denies chest pain, leg edema, palpitations or racing heartbeat Respiratory/Chest Respiratory/Chest: Reports cough; Denies dyspnea or dyspnea on exertion Gastrointestinal Gastrointestinal: Denies abdominal pain, diarrhea, nausea or vomiting Genitourinary Genitourinary ED: Denies dysuria, hematuria or urinary frequency Musculoskeletal Musculoskeletal: Denies back pain, extremity pain or neck pain Integumentary Denies rash or wounds Neurologic Neurologic: Denies headache(s), paresthesias or weakness EXAM Physical Exam Const Vital Signs: 08/27/23 13:15 08/27/23 13:20 08/27/23 13:21 Temperature 97.1 F L Temperature Source Temporal Pulse Rate 72 70 Respiratory Rate 16 15 Respiratory Effort Normal Non-Labored Respiratory Pattern Normal Blood Pressure 130/86 H 117/65 Blood Pressure Mean 100 82 Pulse Ox 86 95 Oxygen Delivery Method Room Air Nasal Cannula Oxygen Flow Rate (L/min) 2 08/27/23 14:07 08/27/23 14:42 08/27/23 15:16 Temperature 98.1 F 98.1 F Temperature Source Oral Oral Pulse Rate 73 74 Respiratory Rate 18 22 H Respiratory Effort Respiratory Pattern Blood Pressure 100/59 L 91/62 Blood Pressure Mean 72 71 Pulse Ox 93 91 93 Oxygen Delivery Method Nasal Cannula Nasal Cannula Oxygen Flow Rate (L/min) 2 2 2 08/27/23 16:50 08/27/23 17:58 Temperature 97.1 F L Temperature Source Pulse Rate 75 74 Respiratory Rate 18 18 Respiratory Effort Respiratory Pattern Blood Pressure 141/83 H 141/83 H Blood Pressure Mean 102 102 Pulse Ox 95 95 Oxygen Delivery Method Nasal Cannula Oxygen Flow Rate (L/min) 2 Positive well nourished and well developed Constitutional Narrative: Somnolent, answering questions moving all 4 extremities on 2 L nasal cannula no respiratory distress. General Appearance ED: well developed and NAD HEENT Reports moist mucous membranes normocephalic and atraumatic Eyes PERRL, EOMs intact bilaterally and conjunctivae normal General Eye ED: Yes normal appearance of both eyes Neck no lymphadenopathy and supple General: Negative for tenderness Chest Wall Chest: Negative for tenderness Resp normal respiratory effort and normal air movement Effort and Inspection: symmetric chest movement; Negative for respiratory distress Cardio regular rate, regular rhythm and no murmurs Peripheral Pulses: pulses 2+ throughout GI normal to inspection, nondistended, normoactive bowel sounds and non-tender Palpation: Negative for guarding or rebound tenderness present Back/Spine no CVA tenderness and no thoracic nor lumbar tenderness Extremity normal to inspection Extremity Narrative: 1+ lower extremity edema. No calf tenderness. General Extremety ED: Yes edema; Negative for tenderness General Extremity: edema Neuro oriented x3 and no sensory deficits noted Sensorium / Orientation: awake and alert MDM MDM MDM Narrative Medical decision making narrative: Interventions / MDM: Differential diagnosis: Diagnosis considered but do not suspect: N/A My EKG interpretation: Sinus rate of 68, no ST changes, isolated T wave version aVL, nonspecific. Imaging independently reviewed and interpreted by myself: 1 view chest x-ray: No acute process also read by radiology. External documents reviewed: Previous inpatient records from a year ago had admissions for hypoxia, 1 admission had parainfluenza virus, other slight fluid overload improving with treatment and discharged without oxygen. Test considered but not ordered:N/A ED course: Stable on 2 L nasal cannula she is somnolent no respiratory distress she is afebrile systolic blood pressure 90s over 60s in the room. Will give IV fluids, will check EKG labs urine, COVID flu and RSV sent. Chest x-ray ordered. 1450: VBG to evaluate for hypercapnia CO2 is 55. pH 7.33. Cath urine negative for infection. Chest x-ray negative for infection. Creatinine 2.05 slightly elevated from her recent with history of stage IV kidney disease. White count 8.8 hemoglobin 12.9. Potassium 4.6 sodium 141. 1545: Patient a lot more awake currently, however she is on oxygen. COVID flu and RSV negative. I did send for respiratory panel. She reports productive cough for a week. She is wheelchair-bound for the last year. Reports more fatigue in the last 2 days. With her history likely viral syndrome causing hypoxia no pneumonia on x-ray at this point. Will discuss with hospital service for admission. 1600: I spoke with hospitalist Dr. Licea, currently on 2 L oxygen no respiratory distress. [facility] Request I speak with feeling potential oxygen continuation there, if able then hospitalization would not be required. I had nursing reach out to call. 1625: Nursing called stating she had a concentrator in her room that she had from previous use. Is available to use for her at the facility. Discussed this with her that they will continue oxygen. Therefore she will be discharged back to facility for continued management there with return precautions. All questions were answered. After discharge, respiratory panel returned negative. Re-evaluation: stable Disposition discussed with patient/family/significant other: Patient Case discussed with consulting clinician: N/A This note was generated with Dragon dictation software. It may contain incorrect words, spelling, and punctuation that were not noted in checking the note before signing. Lab Data Attestation: I reviewed the patient's lab results. Labs: Laboratory Results - last 24 hr 08/27/23 14:05 WBC 8.8 RBC 4.88 Hgb 12.9 Hct 41.4 MCV 84.8 MCH 26.4 L MCHC 31.2 L RDW Std Deviation 53.0 H RDW Coeff of Doris 17.5 H Plt Count 132 L MPV 8.6 Immature Gran % (Auto) 0.600 Neut % (Auto) 50.0 Lymph % (Auto) 40.6 Mora % (Auto) 7.4 Eos % (Auto) 0.9 Baso % (Auto) 0.5 Absolute Neuts (auto) 4.4 Absolute Lymphs (auto) 3.55 Nucleated RBC % 0 Sodium 141 Potassium 4.6 Chloride 102 Carbon Dioxide 32.0 Anion Gap 7 BUN 47 H Creatinine 2.05 H Estim Creat Clear Calc 35.49 Est GFR (MDRD) Af Amer 32 L Est GFR (MDRD) Non-Af 26 L BUN/Creatinine Ratio 22.9 H Glucose 143 H Calcium 9.0 Total Bilirubin 0.20 AST 22 ALT 20 Alkaline Phosphatase 94 Total Protein 6.9 Albumin 2.9 L Globulin 4.0 Albumin/Globulin Ratio 0.7 L Urine Color Yellow Urine Clarity Clear Urine pH 6.0 Ur Specific [place] 1.015 Urine Protein 100 H Urine Glucose (UA) 1000 H Urine Ketones Negative Urine Occult Blood Negative Urine Nitrite Negative Urine Bilirubin Negative Urine Urobilinogen Normal Ur Leukocyte Esterase Negative Urine RBC 0 SEEN Urine WBC 0 SEEN Ur Squamous Epith Cells 0 SEEN Urine Bacteria 0 SEEN Urine Mucus 0 SEEN ABG Data ABG results: ABG 08/27/23 14:25 Specimen Type LEROY Sample Site Not entered VBG pH 7.33 VBG pO2 56 H VBG HCO3 29 H VBG Total CO2 31 VBG O2 Sat (Calc) 86 H VBG Base Excess 3 POC Mix VBG pCO2 Pt Tmp 55.0 H O2 Delivery Device Not entered Radiography Diagnostic Testing: Clinical Impression(s) from Imaging Studies Chest X-Ray 08/27/23 14:15 IMPRESSION: Mild cardiomegaly. The lungs are clear. Electronically Signed: Man Kauffman MD at 14:31 EDT , Discharge Plan Triage Chief Complaint: Fatigue Other Complaint: Complaint ED Provider: Phillip Mckenzie Dx/Rx/DC Orders Clinical Impression: Type 2 diabetes mellitus, CKD (chronic kidney disease) stage 4, GFR 15-29 ml/min, Hypoxia, Viral URI Instructions: ED URI, Viral, No Abx (Adult) Prescriptions: No Action simvastatin 20 mg tablet 20 mg PO QHS gabapentin 300 mg capsule 300 mg PO DAILY Hold Instructions: Resume on 12/18/22. ziprasidone HCl 80 mg capsule 80 mg PO DAILY Rx Instructions: TAKE ONE CAPSULE BY MOUTH ONCE DAILY WITH FOOD. MUST EAT 500 CALORIES FOR ABSORPTION. doxepin 10 mg capsule 10 mg PO QHS omeprazole 20 mg capsule,delayed release(DR/EC) 20 mg PO DAILY (DME) [employer] Jolie 2 Cypress Misc See Rx Instructions .Route Qty: 1 0RF Rx Instructions: As directed divalproex 125 mg tablet,delayed release (DR/EC) 375 mg PO BID aspirin 81 mg tablet,delayed release (DR/EC) 81 mg PO DAILY Qty: 90 3RF Gemtesa 75 mg tablet 75 mg PO DAILY insulin aspart U-100 100 unit/mL (3 mL) insulin pen 35 unit subcut LUNCH insulin aspart U-100 100 unit/mL (3 mL) insulin pen 37 unit subcut DINNER insulin glargine [Lantus Solostar U-100 Insulin] 100 unit/mL (3 mL) insulin pen 50 unit subcut QHS fesoterodine [Toviaz] 8 mg tablet extended release 24 hr 8 mg PO DAILY metoprolol succinate 100 mg tablet extended release 24 hr 100 mg PO DAILY Qty: 90 3RF acetaminophen 325 mg tablet 650 mg PO BID PRN (Reason: PAIN/FEVER) sertraline 100 mg tablet 100 mg PO QHS Patient Comments: OF 08/27/23 PT ONLY TAKES ONE 100MG TABLET BY MOUTH ONCE DAILY AT BEDTIME. olanzapine 10 mg tablet 10 mg PO QHS ergocalciferol (vitamin D2) [Drisdol] 1,250 mcg (50,000 unit) Capsule 1,250 mcg PO MOTH furosemide 20 mg tablet 20 mg PO DAILY Qty: 30 1RF docusate sodium [Colace] 100 mg capsule 100 mg PO BID polyethylene glycol 3350 [Miralax] 17 gram/dose powder 17 g PO DAILY promethazine 25 mg tablet 25 mg PO TID PRN (Reason: NAUSEA/VOMITING ) Qty: 10 0RF Jardiance 25 mg tablet 25 mg PO DAILY insulin aspart U-100 100 unit/mL (3 mL) insulin pen 40 unit subcut BREAKFAST insulin aspart U-100 100 unit/mL (3 mL) insulin pen See Protocol subcut TIDCM Protocol: 6. Sliding Scale Insulin Custom Condition: mg/dl range Dose/Route: Number of Units Condition: 180-220 Dose/Route: 3 Condition: 221-260 Dose/Route: 5 Condition: 261> Dose/Route: 8 Protocol Text: Custom Sliding Scale albuterol sulfate 2.5 mg /3 mL (0.083 %) solution for nebulization 2.5 mg inhalation Q4H PRN (Reason: SHORTNESS OF BREATH ) cetirizine 5 mg tablet 5 mg PO DAILY PRN (Reason: ALLERGIES ) hydroxyzine pamoate 25 mg capsule 25 mg PO TID PRN (Reason: ANXIETY ) albuterol sulfate [ProAir HFA] 90 mcg/actuation HFA aerosol inhaler 2 puff inhalation Q4H PRN (Reason: SHORTNESS OF BREATH/WHEEZING ) amlodipine 5 mg tablet 5 mg PO DAILY Qty: 30 6RF (DME) [employer] Jolie 2 Sensor Kit See Rx Instructions .Route Qty: 2 5RF Rx Instructions: 1 sensor q 14 days Primary Care Provider: Care Physician,No Primary Referrals: Care Physician,No Primary [Primary Care Provider] - Activity Restrictions/Additional Instructions: Urine negative for infection. Labs are stable. Chest x-ray negative. COVID, influenza, RSV negative. Viral panel sent and pending. Continue oxygen at 2 L. Symptoms worsen requiring more oxygen, return to the ED for reevaluation otherwise follow-up with your doctor at the facility. Disposition Disposition: Home, Self Care Discharge Date/Time: 08/27/23 19:24
[2023-08-27] MEDS: 0.9% Normal Saline (1000mL) 1,000 ML 1000 ML IV (14:11)
--- NOTE | 2023-08-27 14:15 | RAD_ITS ---
STUDY: X-RAY CHEST REASON FOR EXAM: Female, 63 years old. Cough TECHNIQUE: Single AP portable view of the chest. COMPARISON: Comparison is made with prior study dated December 07, 2022. FINDINGS: EKG electrodes are seen. The lungs are clear and expanded. There is no demonstrated pleural abnormality. There is mild cardiac enlargement. Normal mediastinum and belem. Normal visualized pulmonary arteries. There is atherosclerotic calcification of the aortic arch with tortuosity. Normal visualized thoracic spine. Normal visualized ribs, clavicles, and shoulders. There is no demonstrated abnormality of the visualized soft tissue structures of the upper abdomen. RAD/Chest 1 View (Portable) IMPRESSION: Mild cardiomegaly. The lungs are clear. Electronically Signed: Man Kauffman MD at 14:31 EDT ,
[2023-08-27 14:18] LABS: Bacteria 0 SEEN /hpf (None Seen); Mucous, Urine 0 SEEN /hpf (<or=2+); Red Blood Cells-Urine 0 SEEN /hpf (0-5); Squamous Epithelial Cells - UA 0 SEEN /hpf (5-10); White Blood Cells 0 SEEN /hpf (0-5)
[2023-08-27 14:22] LABS: Absolute Lymphocyte Count 3.55 X10^3/uL (0.83-4.51); Absolute Neutrophil Count 4.4 X10^3/uL (2.0-7.7); Basophil# 0.04 X10^3/uL; Basophil% 0.5 % (0-1); Color, Urine Yellow (Yellow); Eosinophil# 0.08 X10^3/uL; Eosinophils% 0.9 % (0-5); Glucose, Dipstick 1000 mg/dl (Normal); Hematocrit 41.4 % (37-47); Hemoglobin 12.9 g/dL (12.0-15.0); Ketone-Dipstick Negative (Negative); Leukocyte Esterase-Dipstick Negative /ul (Negative); Lymphocyte # 3.55 X10^3/ul (0.83-4.51); Lymphocyte % 40.6 % (19-41); Mean Corp Hgb Conc 31.2 g/dL (32-36); Mean Corpuscular Hgb 26.4 pg (27.0-32.0); Mean Corpuscular Volume 84.8 fL (81-99); Mean Platelet Vol. 8.6 fl (6.2-12.0); Monocyte# 0.65 X10^3/uL; Monocyte% 7.4 % (0-10); NRBC Flagged by Analyzer 0 % (0-5); Neutrophil # 4.38 X10^3/uL (2.7-7.7); Nitrite-Dipstick Negative (Negative); Occult Blood-Urine Negative /ul (Negative); Platelet Count 132 K/mm3 (150-450); Protein-Dipstick 100 mg/dl (Negative); RBC Distribution Width CV 17.5 % (11.6-14.6); Red Blood Count 4.88 M/mm3 (4.2-5.4); Specific Gravity, Urine 1.015 (1.002-1.030); Urine Bilirubin Dipstick Negative (Negative); Urine Clarity Clear (Clear); Urine Urobilinogen Normal (Normal); White Blood Count 8.8 K/mm3 (4.4-11.0)
[2023-08-27 14:28] LABS: Blood Gas Specimen Type VEN; O2 Delivery Device Not entered; SITE Not entered; VBG BASE EXCESS 3 mmol/L (-1.0-3.5); VBG Bicarbonate 29 mmol/L (22-26); VBG PO2 56 mmHg (25-40); VBG SO2 86 % (50-70); VBG TCO2 31 mmol/L (23-33); VBG pH 7.33 (7.32-7.42)
[2023-08-27 14:41] LABS: ALB/GLOB Ratio 0.7 RATIO (0.9-2.4); AST(SGOT) 22 U/L (15-37); Alanine Aminotransfer ALT/SGPT 20 U/L (13-56); Albumin, Serum 2.9 g/dL (3.2-5.0); Alkaline Phosphatase 94 U/L (45-117); Anion Gap 7 (5-15); BUN 47 mg/dL (7-18); BUN/Creat Ratio 22.9 RATIO (10-20); Chloride 102 mmol/L (98-107); Creatinine, Serum 2.05 mg/dL (0.55-1.02); EST Glomerular Filtration Rate 26 mL/min (>60); Est Glom Filt Rate - Afr Amer 32 mL/min (>60); Estimated Creatinine Clearance 35.49 ml/min; Glucose 143 mg/dL (74-106); Potassium 4.6 mmol/L (3.5-5.1); Protein, Total 6.9 g/dL (6.4-8.2); Sodium Level 141 mmol/L (136-145)
--- NOTE | 2023-08-27 15:50 | HP.PCM.HOS_ITS ---
HPI - General HPI Narrative KELSI JENSEN, is a 63 F who presents [facility] Medical History Abnormal cardiovascular stress test Abnormal echocardiogram Acute non-ST elevation myocardial infarction (NSTEMI) Acute on chronic renal insufficiency Anxiety Cardiomyopathy Chronic pain CKD (chronic kidney disease) stage 3, GFR 30-59 ml/min CKD (chronic kidney disease) stage 4, GFR 15-29 ml/min Depression Diabetes Essential hypertension Former smoker Hepatitis Hepatitis C History of mental problems Hyperkalemia Hyperlipidemia Hypertension Hypoxia Kidney stones Microalbuminuria Obesity Parainfluenza Right knee DJD Right knee pain Tonsillectomy planned Type 2 diabetes mellitus Home Medications doxepin 10 mg capsule 10 mg PO QHS DEPRESSION 05/29/22 [History Last Taken 08/26/23] flash glucose scanning reader ([employer] Jolie 2 [place]) #1 ea 05/29/22 [Rx Last Taken Unknown] gabapentin 300 mg capsule 300 mg PO DAILY NEUROPATHY 05/29/22 [History Last Taken 08/26/23] omeprazole 20 mg capsule,delayed release 20 mg PO DAILY GERD 05/29/22 [History Last Taken 08/26/23] simvastatin 20 mg tablet 20 mg PO QHS CHOLESTEROL 05/29/22 [History Last Taken 08/26/23] ziprasidone HCl 80 mg capsule 80 mg PO DAILY BIPOLAR DISORDER 05/29/22 [History Last Taken 08/26/23] amlodipine 5 mg tablet 5 mg PO DAILY BLOOD PRESSURE #30 tabs 07/15/22 [Rx Last Taken 08/26/23] acetaminophen 325 mg tablet 650 mg PO BID PRN PAIN/FEVER 08/28/22 [History Last Taken 08/26/23] ergocalciferol (vitamin D2) 1,250 mcg (50,000 unit) capsule (Drisdol) 1,250 mcg PO MOTH SUPPLEMENT 08/28/22 [History Last Taken 08/25/23] olanzapine 10 mg tablet 10 mg PO QHS BIPOLAR DISORDER 08/28/22 [History Last Taken 08/26/23] sertraline 100 mg tablet 100 mg PO QHS DEPRESSION 08/28/22 [History Last Taken 08/26/23] furosemide 20 mg tablet 20 mg PO DAILY EDEMA #30 tabs 08/31/22 [Rx Last Taken 08/26/23] flash glucose sensor ([employer] Jolie 2 Sensor kit) #2 ea 09/23/22 [Rx Last Taken Unknown] docusate sodium 100 mg capsule (Colace) 100 mg PO BID CONSTIPATION 12/06/22 [History Last Taken 08/26/23] polyethylene glycol 3350 17 gram/dose oral powder (Miralax) 17 g PO DAILY CONSTIPATION 12/06/22 [History Last Taken 08/26/23] aspirin 81 mg tablet,delayed release 81 mg PO DAILY HEART HEALTH #90 tabs 12/18/22 [Rx Last Taken 08/26/23] promethazine 25 mg tablet 25 mg PO TID PRN NAUSEA/VOMITING #10 tabs 01/20/23 [Rx Last Taken Unknown] divalproex 125 mg tablet,delayed release 375 mg PO BID BIPOLAR DISORDER 07/07/23 [History Last Taken 08/26/23] fesoterodine 8 mg tablet,extended release 24 hr (Toviaz) 8 mg PO DAILY OVERACTIVE BLADDER 07/07/23 [History Last Taken 08/26/23] insulin aspart U-100 100 unit/mL (3 mL) subcutaneous pen 35 unit subcut LUNCH DIABETES 07/07/23 [History Last Taken 08/26/23] insulin aspart U-100 100 unit/mL (3 mL) subcutaneous pen 37 unit subcut DINNER DIABETES 07/07/23 [History Last Taken 08/26/23] insulin glargine 100 unit/mL (3 mL) subcutaneous pen (Lantus Solostar U-100 Insulin) 50 unit subcut QHS 07/07/23 [History Last Taken 08/26/23] metoprolol succinate 100 mg tablet,extended release 24 hr 100 mg PO DAILY BLOOD PRESSURE #90 tabs 07/07/23 [Rx Last Taken 08/26/23] vibegron 75 mg tablet (Gemtesa) 75 mg PO DAILY OVERACTIVE BLADDER 07/07/23 [History Last Taken 08/26/23] albuterol sulfate 2.5 mg/3 mL (0.083 %) solution for nebulization 2.5 mg inhalation Q4H PRN SHORTNESS OF BREATH 08/27/23 [History Last Taken Unknown] albuterol sulfate 90 mcg/actuation aerosol inhaler (ProAir HFA) 2 puff inhalat ion Q4H PRN SHORTNESS OF BREATH/WHEEZING 08/27/23 [History Last Taken Unknown] cetirizine 5 mg tablet 5 mg PO DAILY PRN ALLERGIES 08/27/23 [History Last Taken Unknown] empagliflozin 25 mg tablet (Jardiance) 25 mg PO DAILY DIABETES 08/27/23 [History Last Taken 08/26/23] hydroxyzine pamoate 25 mg capsule 25 mg PO TID PRN ANXIETY 08/27/23 [History Last Taken Unknown] insulin aspart U-100 100 unit/mL (3 mL) subcutaneous pen 40 unit subcut BREAKFAST DIABETES 08/27/23 [History Last Taken 08/25/23] insulin aspart U-100 100 unit/mL (3 mL) subcutaneous pen See Protocol subcut TIDCM DIABETES 08/27/23 [History Last Taken 08/26/23] Allergy/AdvReac Type Severity Reaction Status Date / Time codeine Allergy Hives Verified 08/27/23 13:15 prochlorperazine edisylate Allergy Swelling Verified 08/27/23 13:15 [From Compazine] prochlorperazine maleate Allergy Swelling Verified 08/27/23 13:15 [From Compazine] Family History Other Alcohol abuse Cancer Heart disease Hypertension Mental disorder Surgical History Hx of tonsillectomy Social History Smoking Status: Never smoker alcohol intake: never substance use type: does not use caffeine: Yes Type: coffee what type of physical activity do you participate in: none Vital Signs Vital Signs Vital Signs: 08/27/23 13:15 08/27/23 13:20 08/27/23 13:21 Temperature 97.1 F L Temperature Source Temporal Pulse Rate 72 70 Respiratory Rate 16 15 Respiratory Effort Normal Non-Labored Respiratory Pattern Normal Blood Pressure 130/86 H 117/65 Blood Pressure Mean 100 82 Pulse Ox 86 95 Oxygen Delivery Method Room Air Nasal Cannula Oxygen Flow Rate (L/min) 2 08/27/23 14:07 08/27/23 14:42 08/27/23 15:16 Temperature 98.1 F 98.1 F Temperature Source Oral Oral Pulse Rate 73 74 Respiratory Rate 18 22 H Respiratory Effort Respiratory Pattern Blood Pressure 100/59 L 91/62 Blood Pressure Mean 72 71 Pulse Ox 93 91 93 Oxygen Delivery Method Nasal Cannula Nasal Cannula Oxygen Flow Rate (L/min) 2 2 2 Weight Weight: 126.8 kg Body Mass Index (BMI) 56.5 Results Lab / Micro Data 08/27/23 14:05 08/27/23 14:05 Labs: Laboratory Results - last 24 hr 08/27/23 14:05: WBC 8.8, RBC 4.88, Hgb 12.9, Hct 41.4, MCV 84.8, MCH 26.4 L, MCHC 31.2 L, RDW Std Deviation 53.0 H, RDW Coeff of Doris 17.5 H, Plt Count 132 L, MPV 8.6, Immature Gran % (Auto) 0.600, Neut % (Auto) 50.0, Lymph % (Auto) 40.6, [place] % (Auto) 7.4, Eos % (Auto) 0.9, Baso % (Auto) 0.5, Absolute Neuts (auto) 4.4, Absolute Lymphs (auto) 3.55, Nucleated RBC % 0, Sodium 141, Potassium 4.6, Chloride 102, Carbon Dioxide 32.0, Anion Gap 7, BUN 47 H, Creatinine 2.05 H, Estim Creat Clear Calc 35.49, Est GFR (MDRD) Af Amer 32 L, Est GFR (MDRD) Non-Af 26 L, BUN/Creatinine Ratio 22.9 H, Glucose 143 H, Calcium 9.0, Total Bilirubin 0.20, AST 22, ALT 20, Alkaline Phosphatase 94, Total Protein 6.9, Albumin 2.9 L, Globulin 4.0, Albumin/Globulin Ratio 0.7 L, Urine Color Yellow, Urine Clarity Clear, Urine pH 6.0, Ur Specific [place] 1.015, Urine Protein 100 H, Urine Glucose (UA) 1000 H, Urine Ketones Negative, Urine Occult Blood Negative, Urine Nitrite Negative, Urine Bilirubin Negative, Urine Urobilinogen Normal, Ur Leukocyte Esterase Negative, Urine RBC 0 SEEN, Urine WBC 0 SEEN, Ur Squamous Epith Cells 0 SEEN, Urine Bacteria 0 SEEN, Urine Mucus 0 SEEN Micro: Microbiology 08/27/23 14:10 Mucosa - Nose SARS-CoV-2, Influenza & RSV (PCR) - Final ABG Data ABG results: ABG 08/27/23 14:25 Specimen Type LEROY Sample Site Not entered VBG pH 7.33 VBG pO2 56 H VBG HCO3 29 H VBG Total CO2 31 VBG O2 Sat (Calc) 86 H VBG Base Excess 3 POC Mix VBG pCO2 Pt Tmp 55.0 H O2 Delivery Device Not entered Imaging Radiology Impression Chest X-Ray 08/27/23 14:15 IMPRESSION: Mild cardiomegaly. The lungs are clear. Electronically Signed: Man Kauffman MD at 14:31 EDT ,
--- NOTE | 2023-08-27 16:20 | ED.RN ---
[facility] has O2 concentrator in room from having previous pneumonia.
--- NOTE | 2023-08-27 17:06 | ED.RN ---
JASKARAN CALLED, ETA 2 HOURS ([id number])
--- NOTE | 2023-08-27 18:02 | ED.RN ---
called update to Charles SOUSA at [facility] to inform of resp panel pending, pt having meal in ED, and awaiting ride to transport at 1900
== END 2023-08-27 19:24 | disposition home or self-care (01) ==
PROVIDERS: Emergency Provider Emergency Medicine; Visit Provider Emergency Medicine
DX: J06.9 Acute upper respiratory infection, unspecified (principal); E11.22 Type 2 diabetes mellitus with diabetic chronic kidney disease; N18.4 Chronic kidney disease, stage 4 (severe); Z79.4 Long term (current) use of insulin; R09.02 Hypoxemia; I12.9 Hypertensive chronic kidney disease with stage 1 through stage 4 chronic kidney disease, or unspecified chronic kidney disease; Z99.3 Dependence on wheelchair; R53.83 Other fatigue; Z79.82 Long term (current) use of aspirin; Z79.899 Other long term (current) drug therapy; E78.5 Hyperlipidemia, unspecified
CPT/HCPCS: 51701; 71045; 80053; 81001; 82803; 85025; 87631; 87633; 93005; 96360; 99285; P9612; A4216

== ENCOUNTER 2023-11-22 14:20 | Inpatient (IN) | payer MEDICAID, SELFPAY ==
[2023-11-22] VITALS (9 sets, daily range): BP systolic 89–148; BP diastolic 41–96; PULSE 73–93; RESP 18–32; TEMP 36.4–37.2; O2SAT 92–96; BMI 54.6; BMI 53.6
--- NOTE | 2023-11-22 15:03 | EX.ED.DYSGE1 ---
HPI <MICHELLE Anna - Last Filed: 11/22/23 16:44> History of Present Illness Chief Complaint: General Illness Narrative Narrative: 63-year-old female with past medical history of HTN, HLD, CKD, DM2 states she did not feel well this morning and was noted to have a fever at [facility] and was sent in for evaluation. She reports a few days of a cough. She does not wear oxygen but was hypoxic per EMS and placed on 3 L nasal cannula. She denies chest pain or shortness of breath. No abdominal pain. She states both her knees hurt. She uses a wheelchair and rarely ambulates. She wears depends and has urinary incontinence. [facility] <MICHELLE Anna - Last Filed: 11/22/23 16:44> [facility] Medical History Abnormal cardiovascular stress test Abnormal echocardiogram Acute non-ST elevation myocardial infarction (NSTEMI) Acute on chronic renal insufficiency Anxiety Cardiomyopathy Chronic pain CKD (chronic kidney disease) stage 3, GFR 30-59 ml/min CKD (chronic kidney disease) stage 4, GFR 15-29 ml/min Depression Diabetes Essential hypertension Former smoker Hepatitis Hepatitis C History of mental problems Hyperkalemia Hyperlipidemia Hypertension Hypoxia Kidney stones Microalbuminuria Obesity Parainfluenza Right knee DJD Right knee pain Tonsillectomy planned Type 2 diabetes mellitus Home Medications ?Medication ?Instructions ?Recorded ?Last Taken ?Type doxepin 10 mg capsule 10 mg PO QHS DEPRESSION 05/29/22 08/26/23 History flash glucose scanning reader #1 ea 05/29/22 Unknown Rx (Elite Formyle Jolie 2 [place]) gabapentin 300 mg capsule 300 mg PO DAILY NEUROPATHY 05/29/22 08/26/23 History omeprazole 20 mg capsule,delayed 20 mg PO DAILY GERD 05/29/22 08/26/23 History release simvastatin 20 mg tablet 20 mg PO QHS CHOLESTEROL 05/29/22 08/26/23 History ziprasidone HCl 80 mg capsule 80 mg PO DAILY BIPOLAR DISORDER 05/29/22 08/26/23 History amlodipine 5 mg tablet 5 mg PO DAILY BLOOD PRESSURE #30 07/15/22 08/26/23 Rx tabs acetaminophen 325 mg tablet 650 mg PO BID PRN PAIN/FEVER 08/28/22 08/26/23 History ergocalciferol (vitamin D2) 1,250 1,250 mcg PO MOTH SUPPLEMENT 08/28/22 08/25/23 History mcg (50,000 unit) capsule (Drisdol) olanzapine 10 mg tablet 10 mg PO QHS BIPOLAR DISORDER 08/28/22 08/26/23 History sertraline 100 mg tablet 100 mg PO QHS DEPRESSION 08/28/22 08/26/23 History furosemide 20 mg tablet 20 mg PO DAILY EDEMA #30 tabs 08/31/22 08/26/23 Rx flash glucose sensor (FreeStyle #2 ea 09/23/22 Unknown Rx Jolie 2 Sensor kit) docusate sodium 100 mg capsule 100 mg PO BID CONSTIPATION 12/06/22 08/26/23 History (Colace) polyethylene glycol 3350 17 17 g PO DAILY CONSTIPATION 12/06/22 08/26/23 History gram/dose oral powder (Miralax) aspirin 81 mg tablet,delayed 81 mg PO DAILY HEART HEALTH #90 12/18/22 08/26/23 Rx release tabs promethazine 25 mg tablet 25 mg PO TID PRN NAUSEA/VOMITING 01/20/23 Unknown Rx #10 tabs divalproex 125 mg tablet,delayed 375 mg PO BID BIPOLAR DISORDER 07/07/23 08/26/23 History release fesoterodine 8 mg tablet,extended 8 mg PO DAILY OVERACTIVE BLADDER 07/07/23 08/26/23 History release 24 hr (Toviaz) insulin aspart U-100 100 unit/mL 35 unit subcut LUNCH DIABETES 07/07/23 08/26/23 History (3 mL) subcutaneous pen insulin aspart U-100 100 unit/mL 37 unit subcut DINNER DIABETES 07/07/23 08/26/23 History (3 mL) subcutaneous pen insulin glargine 100 unit/mL (3 50 unit subcut QHS 07/07/23 08/26/23 History mL) subcutaneous pen (Lantus Solostar U-100 Insulin) metoprolol succinate 100 mg 100 mg PO DAILY BLOOD PRESSURE 07/07/23 08/26/23 Rx tablet,extended release 24 hr #90 tabs vibegron 75 mg tablet (Gemtesa) 75 mg PO DAILY OVERACTIVE BLADDER 07/07/23 08/26/23 History albuterol sulfate 2.5 mg/3 mL 2.5 mg inhalation Q4H PRN 08/27/23 Unknown History (0.083 %) solution for nebulization SHORTNESS OF BREATH albuterol sulfate 90 mcg/actuation 2 puff inhalation Q4H PRN 08/27/23 Unknown History aerosol inhaler (ProAir HFA) SHORTNESS OF BREATH/WHEEZING cetirizine 5 mg tablet 5 mg PO DAILY PRN ALLERGIES 08/27/23 Unknown History empagliflozin 25 mg tablet 25 mg PO DAILY DIABETES 08/27/23 08/26/23 History (Jardiance) hydroxyzine pamoate 25 mg capsule 25 mg PO TID PRN ANXIETY 08/27/23 Unknown History insulin aspart U-100 100 unit/mL 40 unit subcut BREAKFAST DIABETES 08/27/23 08/25/23 History (3 mL) subcutaneous pen insulin aspart U-100 100 unit/mL See Protocol subcut TIDCM DIABETES 08/27/23 08/26/23 History (3 mL) subcutaneous pen ferrous sulfate 325 mg (65 mg 325 mg PO TID 11/22/23 Unknown History iron) tablet sertraline 25 mg tablet 25 mg PO DAILY 11/22/23 Unknown History Allergy/AdvReac Type Severity Reaction Status Date / Time codeine Allergy Hives Verified 11/22/23 14:30 prochlorperazine edisylate Allergy Swelling Verified 11/22/23 14:30 (From Compazine) prochlorperazine maleate Allergy Swelling Verified 11/22/23 14:30 (From Compazine) Family History Other Alcohol abuse Cancer Heart disease Hypertension Mental disorder Surgical History Hx of tonsillectomy Social History (Updated 11/22/23 @ 14:27 by Kristin Sams) housing: custodial Smoking Status: Former smoker alcohol intake: never substance use type: does not use caffeine: Yes Type: coffee what type of physical activity do you participate in: none ROS <MICHELLE Anna - Last Filed: 11/22/23 16:44> ROS ED ROS Narrative Constitutional: Positive for fever, malaise. CVS: Negative for chest pain. Respiratory: Positive for cough. GI: Negative for abdominal pain, nausea, vomiting, diarrhea. : Negative for dysuria. Neuro: Negative for headache. EXAM <MICHELLE Anna - Last Filed: 11/22/23 16:44> Physical Exam Narrative Exam Narrative: CONST: Patient sitting in bed appears tired and ill. EYES: Normal inspection. ENT: Normal inspection, dry mucous membranes. NECK: Normal inspection. No meningismus. RESP: No respiratory distress, lung sounds diminished but clear. CVS: Regular rate and rhythm, no murmur, no gallop. ABD: Soft and nontender, no guarding or rebound, nondistended. SKIN: Color normal, no rash, warm, dry, intact. EXTREMITIES: Normal appearance, no pedal edema. NEURO: Alert to self, place, age, situation and answering questions appropriately. Face symmetric, moving all extremities, follows commands. PSYCH: Normal affect. Const Vital Signs: 11/22/23 14:21 11/22/23 14:28 11/22/23 15:15 Temperature 97.8 F 98.9 F Temperature Source Temporal Oral Pulse Rate 93 Respiratory Rate 32 H Respiratory Effort Short of Breath Respiratory Pattern Tachypnea Blood Pressure 103/70 Blood Pressure Mean 81 Pulse Ox 93 Oxygen Delivery Method Nasal Cannula Oxygen Flow Rate (L/min) 3 11/22/23 15:27 11/22/23 16:16 Temperature 98.9 F Temperature Source Oral Pulse Rate 84 89 Respiratory Rate 20 H 28 H Respiratory Effort Respiratory Pattern Blood Pressure 89/54 L 123/96 H Blood Pressure Mean 65 105 Pulse Ox 93 93 Oxygen Delivery Method Nasal Cannula Nasal Cannula Oxygen Flow Rate (L/min) 2 2 <Law Mosqueda MD - Last Filed: 11/22/23 21:44> Physical Exam Const Vital Signs: 11/22/23 14:21 11/22/23 14:28 11/22/23 15:15 Temperature 97.8 F 98.9 F Temperature Source Temporal Oral Pulse Rate 93 Respiratory Rate 32 H Respiratory Effort Short of Breath Respiratory Pattern Tachypnea Blood Pressure 103/70 Blood Pressure Mean 81 Pulse Ox 93 Oxygen Delivery Method Nasal Cannula Oxygen Flow Rate (L/min) 3 11/22/23 15:27 11/22/23 16:16 Temperature 98.9 F Temperature Source Oral Pulse Rate 84 89 Respiratory Rate 20 H 28 H Respiratory Effort Respiratory Pattern Blood Pressure 89/54 L 123/96 H Blood Pressure Mean 65 105 Pulse Ox 93 93 Oxygen Delivery Method Nasal Cannula Nasal Cannula Oxygen Flow Rate (L/min) 2 2 MDM <MICHELLE Anna - Last Filed: 11/22/23 16:44> [facility] Narrative Medical decision making narrative: History gathered from: Patient, EMS Differential among others: ? Viral URI ? Pneumonia ? UTI Consults: Hospitalist 63-year-old female brought in by EMS from [facility] after she was noted to have fatigue, fever, cough. She appears tired and ill but is fully alert and oriented and answers questions appropriately. She was tachypneic at 32/minute, heart rate in the 90s, BP 103/70, requiring 3 L nasal cannula. She does not wear O2 at baseline. Lung sounds are diminished but clear. Workup shows WBC of 16.6, lactate 2.0, BUN 48, creatinine 2.55. Her baseline creatinine is between 1.6?2.4 so this is only minimally elevated. Glucose is 263 with normal CO2 and anion gap. Patient appearing sleepy a VBG was ordered and there is no CO2 retention. Not sure why she is requiring O2. Straight catheter urine sample was positive for UTI. Urine and blood culture sent and she was started on IV fluids and Rocephin. She was transiently hypotensive but after 1 L of fluids responded to 123/96. Second liter of fluids was also ordered. Patient was discussed with the hospitalist for admission and admitted to the PCU. Lab Data Attestation: I reviewed the patient's lab results. Labs: Laboratory Results - last 24 hr 11/22/23 11/22/23 15:05 15:45 WBC 16.6 H RBC 5.14 Hgb 14.7 Hct 45.0 MCV 87.5 MCH 28.6 MCHC 32.7 RDW Std Deviation 51.9 H RDW Coeff of Doris 16.2 H Plt Count 125 L MPV 8.8 Immature Gran % (Auto) 0.800 Neut % (Auto) 76.2 H Lymph % (Auto) 13.5 L Hartley % (Auto) 9.0 Eos % (Auto) 0.1 Baso % (Auto) 0.4 Absolute Neuts (auto) 12.7 H Absolute Lymphs (auto) 2.24 Nucleated RBC % 0 Sodium 134 L Potassium 5.1 Chloride 99 Carbon Dioxide 28.0 Anion Gap 7 BUN 48 H Creatinine 2.55 H Estim Creat Clear Calc 27.95 Est GFR (MDRD) Af Amer 25 L Est GFR (MDRD) Non-Af 20 L BUN/Creatinine Ratio 18.8 Glucose 263 H Lactic Acid 2.0 Calcium 9.4 B-Natriuretic Peptide 174.6 H Urine Color Yellow Urine Clarity Cloudy Urine pH 5.0 Ur Specific [place] 1.010 Urine Protein 500 H Urine Glucose (UA) 1000 H Urine Ketones Negative Urine Occult Blood 250 H Urine Nitrite Negative Urine Bilirubin Negative Urine Urobilinogen 1 H Ur Leukocyte Esterase 500 H Urine RBC 10-25 SEEN Urine WBC >100 SEEN Ur Squamous Epith Cells 0 SEEN Urine Bacteria 3+ Urine Mucus 0 SEEN ABG Data ABG results: ABG 11/22/23 15:29 Specimen Type LEROY Sample Site Not entered VBG pH 7.36 VBG pO2 90 H VBG HCO3 27 H VBG Total CO2 29 VBG O2 Sat (Calc) 96 H VBG Base Excess 2 POC Mix VBG pCO2 Pt Tmp 49.1 O2 Delivery Device Not entered Radiography Diagnostic Testing: Clinical Impression(s) from Imaging Studies Chest X-Ray 11/22/23 15:20 IMPRESSION: Mild left basilar atelectasis or scarring. Electronically Signed: Katherin Lorenzo MD at 15:56 EDT Reading Location ID and State: [facility] / [place] Tel , Service support , ED attending interpretation of 1-view chest x-ray shows normal heart size, no acute infiltrate. <Law Moqsueda MD - Last Filed: 11/22/23 21:44> [facility] Lab Data Labs: Laboratory Results - last 24 hr 11/22/23 11/22/23 15:05 15:45 WBC 16.6 H RBC 5.14 Hgb 14.7 Hct 45.0 MCV 87.5 MCH 28.6 MCHC 32.7 RDW Std Deviation 51.9 H RDW Coeff of Doris 16.2 H Plt Count 125 L MPV 8.8 Immature Gran % (Auto) 0.800 Neut % (Auto) 76.2 H Lymph % (Auto) 13.5 L Hartley % (Auto) 9.0 Eos % (Auto) 0.1 Baso % (Auto) 0.4 Absolute Neuts (auto) 12.7 H Absolute Lymphs (auto) 2.24 Nucleated RBC % 0 Sodium 134 L Potassium 5.1 Chloride 99 Carbon Dioxide 28.0 Anion Gap 7 BUN 48 H Creatinine 2.55 H Estim Creat Clear Calc 27.95 Est GFR (MDRD) Af Amer 25 L Est GFR (MDRD) Non-Af 20 L BUN/Creatinine Ratio 18.8 Glucose 263 H Lactic Acid 2.0 Calcium 9.4 B-Natriuretic Peptide 174.6 H Urine Color Yellow Urine Clarity Cloudy Urine pH 5.0 Ur Specific [place] 1.010 Urine Protein 500 H Urine Glucose (UA) 1000 H Urine Ketones Negative Urine Occult Blood 250 H Urine Nitrite Negative Urine Bilirubin Negative Urine Urobilinogen 1 H Ur Leukocyte Esterase 500 H Urine RBC 10-25 SEEN Urine WBC >100 SEEN Ur Squamous Epith Cells 0 SEEN Urine Bacteria 3+ Urine Mucus 0 SEEN ABG Data ABG results: ABG 11/22/23 15:29 Specimen Type LEROY Sample Site Not entered VBG pH 7.36 VBG pO2 90 H VBG HCO3 27 H VBG Total CO2 29 VBG O2 Sat (Calc) 96 H VBG Base Excess 2 POC Mix VBG pCO2 Pt Tmp 49.1 O2 Delivery Device Not entered Radiography Diagnostic Testing: Clinical Impression(s) from Imaging Studies Chest X-Ray 11/22/23 15:20 IMPRESSION: Mild left basilar atelectasis or scarring. Electronically Signed: Katherin Lorenzo MD at 15:56 EDT Reading Location ID and State: [facility] / [place] Tel , Service support , Management Discussion w/another healthcare provider: Hospitalist Treatment and Re-Evaluation :: Dr. Mosqueda: I have personally performed a face to face assessment of the patient and have reviewed the LUZ Note. I performed a substantive portion of the visit including all aspects of the following. My turner findings include: History is lethargy, reported fever at half-way facility today. Reported hypoxia as well. Exam is afebrile. Vital signs noted. Positive drowsiness. Regular rate and rhythm. Lungs clear to auscultation bilaterally. Abdomen soft and nontender with normoactive bowel sounds. Medical Decision Making: Sepsis workup. I reviewed the laboratory work. She does have a lactic acid elevated at 2.0. Source of infection appears to be urine. She was started on antibiotics. Venous blood gas shows no evidence of CO2 retention. Discussed with the hospitalist for admission. Disposition is admit in stable condition. Other additions or changes: [None] Discharge Plan Dx/Rx/DC Orders Clinical Impression: UTI (urinary tract infection), Sepsis, Hypoxia, History of diabetes mellitus Disposition Disposition: Acute Care Hospital [facility] Discharge Date/Time: 11/22/23 17:09
[2023-11-22] MEDS: 0.9% Normal Saline (1000mL) 1,000 ML 999 ML IV ×2 (15:13→16:15)
--- NOTE | 2023-11-22 15:20 | RAD_ITS ---
HISTORY: cough. TECHNIQUE: XR Chest 1 View. COMPARISON: 08/27/2023. FINDINGS: CARDIOMEDIASTINAL BORDERS: Cardiac silhouette again upper limits of normal in size. Mediastinal contour unchanged with calcification of the aortic knob. LUNGS: Mild linear left basilar atelectasis or scarring again seen. PLEURA: No pleural effusion or pneumothorax seen. OSSEOUS STRUCTURES: Degenerative change. RAD/Chest 1 View (Portable) IMPRESSION: Mild left basilar atelectasis or scarring. Electronically Signed: Katherin Lorenzo MD at 15:56 EDT ,
[2023-11-22 15:27] LABS: Absolute Lymphocyte Count 2.24 X10^3/uL (0.83-4.51); Absolute Neutrophil Count 12.7 X10^3/uL (2.0-7.7); Basophil# 0.06 X10^3/uL; Basophil% 0.4 % (0-1); Eosinophil# 0.01 X10^3/uL; Eosinophils% 0.1 % (0-5); Hemoglobin 14.7 g/dL (12.0-15.0); Lymphocyte # 2.24 X10^3/ul (0.83-4.51); Lymphocyte % 13.5 % (19-41); Mean Corp Hgb Conc 32.7 g/dL (32-36); Mean Corpuscular Hgb 28.6 pg (27.0-32.0); Mean Corpuscular Volume 87.5 fL (81-99); Mean Platelet Vol. 8.8 fl (6.2-12.0); Monocyte# 1.49 X10^3/uL; NRBC Flagged by Analyzer 0 % (0-5); Neutrophil # 12.67 X10^3/uL (2.7-7.7); Neutrophil % 76.2 % (47-70); Platelet Count 125 K/mm3 (150-450); RBC Distribution Width CV 16.2 % (11.6-14.6); RBC Distribution Width SD 51.9 fl (35.1-43.9); Red Blood Count 5.14 M/mm3 (4.2-5.4); White Blood Count 16.6 K/mm3 (4.4-11.0)
[2023-11-22 15:32] LABS: Blood Gas Specimen Type VEN; O2 Delivery Device Not entered; SITE Not entered; VBG BASE EXCESS 2 mmol/L (-1.0-3.5); VBG Bicarbonate 27 mmol/L (22-26); VBG PO2 90 mmHg (25-40); VBG SO2 96 % (50-70); VBG TCO2 29 mmol/L (23-33); VBG pCO2 49.1 mmHg (41-51); VBG pH 7.36 (7.32-7.42)
[2023-11-22 15:49] LABS: Anion Gap 7 (5-15); BUN 48 mg/dL (7-18); BUN/Creat Ratio 18.8 RATIO (10-20); Calcium,Total 9.4 mg/dL (8.5-10.1); Chloride 99 mmol/L (98-107); Creatinine, Serum 2.55 mg/dL (0.55-1.02); EST Glomerular Filtration Rate 20 mL/min (>60); Est Glom Filt Rate - Afr Amer 25 mL/min (>60); Estimated Creatinine Clearance 27.95 ml/min; Glucose 263 mg/dL (74-106); Potassium 5.1 mmol/L (3.5-5.1); Sodium Level 134 mmol/L (136-145)
[2023-11-22 15:50] LABS: Mucous, Urine 0 SEEN /hpf (<or=2+); Squamous Epithelial Cells - UA 0 SEEN /hpf (5-10)
[2023-11-22 15:52] LABS: Color, Urine Yellow (Yellow); Glucose, Dipstick 1000 mg/dl (Normal); Ketone-Dipstick Negative (Negative); Leukocyte Esterase-Dipstick 500 /ul (Negative); Nitrite-Dipstick Negative (Negative); Occult Blood-Urine 250 /ul (Negative); Protein-Dipstick 500 mg/dl (Negative); Urine Bilirubin Dipstick Negative (Negative); Urine Clarity Cloudy (Clear); Urine Urobilinogen 1 mg/dl (Normal)
[2023-11-22 16:02] LABS: Bacteria 3+ /hpf (None Seen); White Blood Cells >100 SEEN /hpf (0-5)
[2023-11-22 16:03] LABS: Red Blood Cells-Urine 10-25 SEEN /hpf (0-5)
--- NOTE | 2023-11-22 16:31 | PCM.HP.STD ---
HPI - General General Date of Admission: 11/22/23 Date of Service: 11/22/23 Chief Complaint: Fever HPI Narrative KELSI JENSEN, is a 63 F who presents to the ED from [facility] living [facility] regarding fever for last few days with associated cough. She has a past medical history of essential hypertension [amlodipine 5 mg, metoprolol succinate 100 mg], dyslipidemia, obesity, NSTEMI, cardiomyopathy, CKD stage IV, type 2 diabetes [on empagliflozin 25 mg p.o. and insulin as part, glargine 50 units], depression on doxepin 10 mg, sertraline 100 mg, ziprasidone at bedtime at bedtime, overactive bladder [vibegron]. She is in the assisted living facility for the the last two year. Per the patient, the patient progressed in the last 2 days, with associated fatigue. For the last couple of months has been having intermittent cough. States that she had excessive daytime sleepiness and keeps on falling back asleep and wakes up after a very brief nap. Feels increasingly drowsy since last few months. In the ED vital signs blood pressure 123/96, respiratory rate 28, pulse 89, needing 2 L oxygen via nasal cannula, her labs showed WBC 16.6, hemoglobin 14.7, platelet 125, pH 7.36, sodium 134, potassium 5.1, BUN 48, creatinine 2.5, glucose 263, during glucose thousand, leuk esterase positive, WBC more than 500, bacteria 3+. Chest x-ray showed mild left basilar atelectasis or scarring. Started on ceftriaxone, and 1 L of LR in the ED. Also started on 2 liters of oxygen. [facility] Medical History Abnormal cardiovascular stress test Abnormal echocardiogram Acute non-ST elevation myocardial infarction (NSTEMI) Acute on chronic renal insufficiency Anxiety Cardiomyopathy Chronic pain CKD (chronic kidney disease) stage 3, GFR 30-59 ml/min CKD (chronic kidney disease) stage 4, GFR 15-29 ml/min Depression Diabetes Essential hypertension Former smoker Hepatitis Hepatitis C History of mental problems Hyperkalemia Hyperlipidemia Hypertension Hypoxia Kidney stones Microalbuminuria Obesity Parainfluenza Right knee DJD Right knee pain Tonsillectomy planned Type 2 diabetes mellitus Home Medications ?Medication ?Instructions ?Recorded ?Last Taken ?Type doxepin 10 mg capsule 10 mg PO QHS DEPRESSION 12/21/22 03/19/24 History flash glucose scanning reader #1 ea 05/29/22 Unknown Rx (FreeStyle Jolie 2 Campbell) gabapentin 300 mg capsule 300 mg PO DAILY NEUROPATHY 05/29/22 08/26/23 History omeprazole 20 mg capsule,delayed 20 mg PO DAILY GERD 05/29/22 08/26/23 History release simvastatin 20 mg tablet 20 mg PO QHS CHOLESTEROL 05/29/22 08/26/23 History ziprasidone HCl 80 mg capsule 80 mg PO DAILY BIPOLAR DISORDER 05/29/22 08/26/23 History amlodipine 5 mg tablet 5 mg PO DAILY BLOOD PRESSURE #30 07/15/22 08/26/23 Rx tabs acetaminophen 325 mg tablet 650 mg PO BID PRN PAIN/FEVER 08/28/22 08/26/23 History ergocalciferol (vitamin D2) 1,250 1,250 mcg PO MOTH SUPPLEMENT 08/28/22 08/25/23 History mcg (50,000 unit) capsule (Drisdol) olanzapine 10 mg tablet 10 mg PO QHS BIPOLAR DISORDER 08/28/22 08/26/23 History sertraline 100 mg tablet 100 mg PO QHS DEPRESSION 08/28/22 08/26/23 History furosemide 20 mg tablet 20 mg PO DAILY EDEMA #30 tabs 08/31/22 08/26/23 Rx flash glucose sensor (FreeStyle #2 ea 09/23/22 Unknown Rx Jolie 2 Sensor kit) docusate sodium 100 mg capsule 100 mg PO BID CONSTIPATION 12/06/22 08/26/23 History (Colace) polyethylene glycol 3350 17 17 g PO DAILY CONSTIPATION 12/06/22 08/26/23 History gram/dose oral powder (Miralax) aspirin 81 mg tablet,delayed 81 mg PO DAILY HEART HEALTH #90 12/18/22 08/26/23 Rx release tabs promethazine 25 mg tablet 25 mg PO TID PRN NAUSEA/VOMITING 01/20/23 Unknown Rx #10 tabs divalproex 125 mg tablet,delayed 375 mg PO BID BIPOLAR DISORDER 07/07/23 08/26/23 History release fesoterodine 8 mg tablet,extended 8 mg PO DAILY OVERACTIVE BLADDER 07/07/23 08/26/23 History release 24 hr (Toviaz) insulin aspart U-100 100 unit/mL 35 unit subcut LUNCH DIABETES 07/07/23 08/26/23 History (3 mL) subcutaneous pen insulin aspart U-100 100 unit/mL 37 unit subcut DINNER DIABETES 07/07/23 08/26/23 History (3 mL) subcutaneous pen insulin glargine 100 unit/mL (3 50 unit subcut QHS 07/07/23 08/26/23 History mL) subcutaneous pen (Lantus Solostar U-100 Insulin) metoprolol succinate 100 mg 100 mg PO DAILY BLOOD PRESSURE 07/07/23 08/26/23 Rx tablet,extended release 24 hr #90 tabs vibegron 75 mg tablet (Gemtesa) 75 mg PO DAILY OVERACTIVE BLADDER 07/07/23 08/26/23 History albuterol sulfate 2.5 mg/3 mL 2.5 mg inhalation Q4H PRN 08/27/23 Unknown History (0.083 %) solution for nebulization SHORTNESS OF BREATH albuterol sulfate 90 mcg/actuation 2 puff inhalation Q4H PRN 08/27/23 Unknown History aerosol inhaler (ProAir HFA) SHORTNESS OF BREATH/WHEEZING cetirizine 5 mg tablet 5 mg PO DAILY PRN ALLERGIES 08/27/23 Unknown History empagliflozin 25 mg tablet 25 mg PO DAILY DIABETES 08/27/23 08/26/23 History (Jardiance) hydroxyzine pamoate 25 mg capsule 25 mg PO TID PRN ANXIETY 08/27/23 Unknown History insulin aspart U-100 100 unit/mL 40 unit subcut BREAKFAST DIABETES 08/27/23 08/25/23 History (3 mL) subcutaneous pen insulin aspart U-100 100 unit/mL See Protocol subcut TIDCM DIABETES 08/27/23 08/26/23 History (3 mL) subcutaneous pen ferrous sulfate 325 mg (65 mg 325 mg PO TID 11/22/23 Unknown History iron) tablet sertraline 25 mg tablet 25 mg PO DAILY 11/22/23 Unknown History Allergy/AdvReac Type Severity Reaction Status Date / Time codeine Allergy Hives Verified 11/22/23 14:30 prochlorperazine edisylate Allergy Swelling Verified 11/22/23 14:30 (From Compazine) prochlorperazine maleate Allergy Swelling Verified 11/22/23 14:30 (From Compazine) Family History Other Alcohol abuse Cancer Heart disease Hypertension Mental disorder Surgical History Hx of tonsillectomy Social History (Updated 11/22/23 @ 14:27 by Kristin Sams) housing: [facility] Smoking Status: Never smoker alcohol intake: never substance use type: does not use caffeine: Yes Type: coffee what type of physical activity do you participate in: none ROS Review of Systems ROS Unobtainable: Denies due to encephalopathy, due to endotracheal tube, due to mental condition, due to mental status or other Constitutional Constitutional: Reports chills, fatigue, fever(s) and malaise Eyes Eyes: Denies blurry vision, change in eye color, change in vision, discharge from eye(s), double vision, erythema, eye pain, loss of vision or other ENT HEENT: Denies abnormal hearing, dysphagia, ear pain, epistaxis, headache(s), hearing loss, nasal congestion, nasal discharge, post nasal drip, sinus pressure, sore throat or other Cardiovascular Cardiovascular: Denies chest pain, claudication, dyspnea on exertion, edema, lightheadedness, orthopnea, palpitations, paroxysmal nocturnal dyspnea, rapid heart rate, syncope or other Respiratory/Chest Respiratory/Chest: Reports cough, dyspnea and shortness of breath with exertion; Denies hemoptysis or productive cough Gastrointestinal Gastrointestinal: Denies abdominal pain, coffee ground emesis, constipation, diarrhea, dyspepsia, hematemesis, hematochezia, loose stools, melena, nausea, vomiting or other Genitourinary Genitourinary: Denies burning urination, difficulty urinating, dysuria, hematuria, nocturia, urinary frequency, urinary hesitancy, urinary incontinence, urinary urgency or other Musculoskeletal Musculoskeletal: Denies arthralgias, back pain, joint pain, joint stiffness, joint swelling, myalgias, neck pain or other Neurologic Neurologic: Denies abnormal gait, abnormal speech, confusion, disequilibrium, dizziness, focal weakness, headache(s), numbness, paresthesias, seizure-like activity, seizures, syncope, tingling, tremor(s) or other Vital Signs Vital Signs Vital Signs: 11/22/23 14:21 11/22/23 14:28 11/22/23 15:15 Temperature 97.8 F 98.9 F Temperature Source Temporal Oral Pulse Rate 93 Respiratory Rate 32 H Respiratory Effort Short of Breath Respiratory Pattern Tachypnea Blood Pressure 103/70 Blood Pressure Mean 81 Pulse Ox 93 Oxygen Delivery Method Nasal Cannula Oxygen Flow Rate (L/min) 3 11/22/23 15:27 11/22/23 16:16 Temperature 98.9 F Temperature Source Oral Pulse Rate 84 89 Respiratory Rate 20 H 28 H Respiratory Effort Respiratory Pattern Blood Pressure 89/54 L 123/96 H Blood Pressure Mean 65 105 Pulse Ox 93 93 Oxygen Delivery Method Nasal Cannula Nasal Cannula Oxygen Flow Rate (L/min) 2 2 Weight Weight: 270 lb 11.642 oz Body Mass Index (BMI) 54.6 Physical Exam Const alert and oriented x3 Constitutional Narrative: Drowsy but easily arousable, obese HEENT normocephalic Eyes PERRL Neck no lymphadenopathy Resp normal respiratory effort Resp Narrative: Decreased bilateral breath sounds likely due to body habitus Cardio regular rate GI normal to inspection, nondistended, normoactive bowel sounds Extremity Extremity Narrative: No pedal edema Neuro oriented x3 Sensorium / Orientation: awake, oriented to person, oriented to place and oriented to time Psych affect normal Results Medical Records Data Attestation: I reviewed the patient's medical records Lab / Micro Data Attestation: I reviewed the patient's lab results. 11/22/23 15:05 11/22/23 15:05 Labs: Laboratory Results - last 24 hr 11/22/23 15:05: WBC 16.6 H, RBC 5.14, Hgb 14.7, Hct 45.0, MCV 87.5, MCH 28.6, MCHC 32.7, RDW Std Deviation 51.9 H, RDW Coeff of Doris 16.2 H, Plt Count 125 L, MPV 8.8, Immature Gran % (Auto) 0.800, Neut % (Auto) 76.2 H, Lymph % (Auto) 13.5 L, [place] % (Auto) 9.0, Eos % (Auto) 0.1, Baso % (Auto) 0.4, Absolute Neuts (auto) 12.7 H, Absolute Lymphs (auto) 2.24, Nucleated RBC % 0, Sodium 134 L, Potassium 5.1, Chloride 99, Carbon Dioxide 28.0, Anion Gap 7, BUN 48 H, Creatinine 2.55 H, Estim Creat Clear Calc 27.95, Est GFR (MDRD) Af Amer 25 L, Est GFR (MDRD) Non-Af 20 L, BUN/Creatinine Ratio 18.8, Glucose 263 H, Lactic Acid 2.0, Calcium 9.4 11/22/23 15:45: Urine Color Yellow, Urine Clarity Cloudy, Urine pH 5.0, Ur Specific [place] 1.010, Urine Protein 500 H, Urine Glucose (UA) 1000 H, Urine Ketones Negative, Urine Occult Blood 250 H, Urine Nitrite Negative, Urine Bilirubin Negative, Urine Urobilinogen 1 H, Ur Leukocyte Esterase 500 H, Urine RBC 10-25 SEEN, Urine WBC >100 SEEN, Ur Squamous Epith Cells 0 SEEN, Urine Bacteria 3+, Urine Mucus 0 SEEN ABG Data ABG results: ABG 11/22/23 15:29 Specimen Type LEROY Sample Site Not entered VBG pH 7.36 VBG pO2 90 H VBG HCO3 27 H VBG Total CO2 29 VBG O2 Sat (Calc) 96 H VBG Base Excess 2 POC Mix VBG pCO2 Pt Tmp 49.1 O2 Delivery Device Not entered Imaging Radiology Impression Chest X-Ray 11/22/23 15:20 IMPRESSION: Mild left basilar atelectasis or scarring. Electronically Signed: Katherin Lorenzo MD at 15:56 EDT , Assessment & Plan Assessment/Plan (1) UTI (urinary tract infection): PLAN: Plan 63-year-old female with a past medical history of essential hypertension, type 2 diabetes, NSTEMI, cardiomyopathy, CKD stage IV, type 2 diabetes presents to the ED with concerns regarding 1 day of fever from the group home facility and was found to have decreased blood sugars with features of urinary tract infection. The likely reason for her presentation is UTI with possible worsening of her underlying cardiac status. #Urinary tract infection: -Follow-up on the urinary cultures -Will get ultrasound of the kidneys given the GERRY as well as high fevers and she has been in assisted living facility for a prolonged time -IV ceftriaxone 1 g every 24 hours -Already received 1 L of fluids in the ED, given her complex past medical history we will hold off further fluids and encourage p.o. oral intake #Coronary artery disease, cardiomyopathy -Echocardiogram to assess the cardiac status given the new onset oxygen requirement -Hold Lasix for now given the UTI #GERRY CKD -Could be related to the UTI/urosepsis but likely prerenal -Imaging as above -Continue to monitor creatinine after the IV fluid bolus # Acute respiratory failure - Reason is not known - Could be worsening of cardiac status given the infection - Check BNP levels - Echocardiogram - No further imaging for now #Type 2 diabetes, suspect resume sugars are poorly controlled -Continuing insulin aspart and glargine -Insulin per sliding scale -A1c levels -Nutrition consult regarding diabetic management at the time of discharge -Case management, PT/OT evaluation #Morbid obesity, BMI 54.7 -Suspect ongoing sleep apnea -Outpatient sleep study for further evaluation may need CPAP therapy -Continue albuterol as before #Essential hypertension -Continue amlodipine, metoprolol succinate #Dyslipidemia: Continue simvastatin 20 mg #Depression: Continue doxepin, sertraline, ziprasidone as before #Overactive bladder continue vibegron #DVT prophylaxis: Continue enoxaparin twice daily given her BMI Charges/Coding Visit Charges Inpatient E&M: 66432 Init Hosp L2
[2023-11-22] MEDS: Ceftriaxone 1 GM/50 ML BAG IV (16:45)
--- NOTE | 2023-11-22 16:54 | US_ITS ---
INDICATION: UTI EXAMINATION: Ultrasound US Kidney(s) complete (eg, kidneys and bladder) TECHNIQUE: Richards scale and color doppler images were obtained of the kidneys. COMPARISON: None. FINDINGS: RIGHT KIDNEY: Measures 10.8 cm in length.. There is no hydronephrosis. No shadowing calculus, focal lesion or perinephric collection is demonstrated. LEFT KIDNEY: Measures 9.3 cm in length.. There is no hydronephrosis. No shadowing calculus, focal lesion or perinephric collection is demonstrated. URINARY BLADDER: Mild circumferential bladder wall thickening. US/Kidney and Bladder IMPRESSION: Findings suspicious for cystitis. Correlate with urinalysis. No hydronephrosis. Electronically Signed: William Escalera MD at 22:31 EDT ,
--- NOTE | 2023-11-22 17:13 | ECHOCS_ITS ---
Reason For Study: CONGESTIVE HEART FAILURE Procedure This was a 2D Doppler, Color Flow transthoracic echocardiogram. The study was technically difficult. Limited views were obtained. Contrast injection was performed. Patient was scanned in supine position during reflux assessment. Exam performed portable in patient room. Left Ventricle Normal LV size. Left ventricular systolic function is normal. Stage 1 diastolic dysfunction. The left ventricular ejection fraction is 55 %. No regional wall motion abnormalities noted. Right Ventricle Normal RV size. Normal systolic function. Atria Normal left atrium. Normal right atrium. Tricuspid Valve Normal tricuspid valve. Mild (1+) tricuspid valve insufficiency. Pulmonary artery systolic pressure is 30 mmHg. Aortic Valve The aortic valve is not well visualized. Pulmonic Valve The pulmonic valve is not well visualized. Great Vessels Normal aortic root. The pulmonary artery is normal size. Normal inferior vena cava. Pericardium/Pleural No pericardial effusion. Medication Diluted definity 2ml given slow IV push to enhance endocardial definition. MMode/2D Measurements & Calculations LVIDd: 4.4 cm IVSd: 1.2 cm LVOT diam: 2.1 cm LVIDs: 2.7 cm LVPWd: 1.0 cm LVOT area: 3.4 cm2 RVDd: 3.0 cm FS: 37.6 % Ao root diam: 3.0 cm LAV(MOD-sp4): 18.2 ml LVAd ap4: 37.6 cm2 LVLd ap4: 7.9 cm EDV(MOD-sp4): 151.4 ml EDV(sp4-el): 150.9 ml LVAs ap4: 25.7 cm2 LVLs ap4: 7.5 cm ESV(MOD-sp4): 74.0 ml ESV(sp4-el): 75.4 ml EF(MOD-sp4): 51.1 % EF(sp4-el): 50.1 % SV(MOD-sp4): 77.4 ml SV(sp4-el): 75.6 ml LA A4 area: 10.1 cm2 RA A4 area: 6.8 cm2 TAPSE: 1.6 cm Time Measurements MV dec time: 0.16 sec Doppler Measurements & Calculations MV E max hussein: 82.5 cm/sec Lat Peak E' Hussein: 12.2 cm/sec Med Peak E' Hussein: 7.8 cm/sec MV A max hussein: 104.7 cm/sec E/E' lat: 6.8 E/E' med: 10.5 MV E/A: 0.79 Ao V2 max: 130.0 cm/sec PA V2 max: 84.0 cm/sec MV dec slope: 513.9 cm/sec2 Ao max P.8 mmHg Ao V2 mean: 101.3 cm/sec Ao mean P.4 mmHg Ao V2 VTI: 25.4 cm TR max hussein: 263.9 cm/sec TR max P.9 mmHg ECHO/Echo Complete W/ Contrast Interpretation Summary Normal LV size. Left ventricular systolic function is normal. Stage 1 diastolic dysfunction. The left ventricular ejection fraction is 55 %. Contrast injection was performed. Ordering Physician: Facundo Corral Performed By: Mindi Rodriguez RDCS
[2023-11-22 17:38] LABS: BNP,B-Type NATRIURETIC PEPTIDE 174.6 pg/mL (0-100)
[2023-11-22 19:23] LABS: Reflex Lactate? Y
[2023-11-22] MEDS: Insulin Lispro 100 UNIT/ML INSULN.PEN SC (21:52)
[2023-11-22] MEDS: Insulin Glargine-YFGN 100 UNIT/ML Pen 50 UNIT SC (21:53)
[2023-11-22 22:15] LABS: Bedside Glucose 244 mg/dL (74-106)
[2023-11-22] MEDS: Atorvastatin Calcium 10 MG Tablet PO (23:15)
[2023-11-22] MEDS: Sertraline 100 MG Tablet PO (23:15)
[2023-11-22] MEDS: Docusate Sodium 100 MG Capsule PO (23:16)
[2023-11-22] MEDS: OLANZapine 10 MG Tablet PO (23:16)
[2023-11-22] MEDS: Divalproex Sodium 125 MG Tablet 375 MG PO (23:16)
[2023-11-23] VITALS (35 sets, daily range): BP systolic 93–158; BP diastolic 52–93; PULSE 22–95; RESP 12–35; TEMP 36.1–37.6; O2SAT 89–96
[2023-11-23 00:29] LABS: Allen Test Positive; Base Excess -1 mmol/L (-2 to +2); Bicarbonate 26.2 mmol/L (22-26); Blood Gas Specimen Type ART; Mode Not entered; O2 Delivery Device Cannula; PO2 61 mmHG (75-100); SITE R Radial; SO2 88 % (95-99); Total Carbon Dioxide 28 mmol/L; pCO2 54.8 mmHg (35-45); pH 7.29 (7.35-7.45)
[2023-11-23] MEDS: Acetaminophen 325 MG Tablet 650 MG PO (00:34)
[2023-11-23 00:40] LABS: Bedside Glucose 194 mg/dL (74-106)
[2023-11-23] MEDS: Enoxaparin 30 MG/0.3 ML Syringe SC (06:03)
[2023-11-23 06:18] LABS: Absolute Lymphocyte Count 2.04 X10^3/uL (0.83-4.51); Absolute Neutrophil Count 11.5 X10^3/uL (2.0-7.7); Basophil# 0.06 X10^3/uL; Basophil% 0.4 % (0-1); Eosinophil# 0.13 X10^3/uL; Eosinophils% 0.9 % (0-5); Hematocrit 43.4 % (37-47); Hemoglobin 13.6 g/dL (12.0-15.0); Lymphocyte # 2.04 X10^3/ul (0.83-4.51); Lymphocyte % 13.4 % (19-41); Mean Corp Hgb Conc 31.3 g/dL (32-36); Mean Corpuscular Hgb 27.9 pg (27.0-32.0); Mean Corpuscular Volume 88.9 fL (81-99); Monocyte# 1.39 X10^3/uL; Monocyte% 9.1 % (0-10); NRBC Flagged by Analyzer 0 % (0-5); Neutrophil % 75.4 % (47-70); Platelet Count 104 K/mm3 (150-450); RBC Distribution Width CV 16.5 % (11.6-14.6); RBC Distribution Width SD 54.2 fl (35.1-43.9); Red Blood Count 4.88 M/mm3 (4.2-5.4); White Blood Count 15.2 K/mm3 (4.4-11.0)
[2023-11-23 06:23] LABS: International Normalized Ratio 1.2; Prothrombin Time (Protime)PT. 15.1 SECONDS (11.7-14.9)
[2023-11-23 06:41] LABS: ALB/GLOB Ratio 0.5 RATIO (0.9-2.4); AST(SGOT) 27 U/L (15-37); Alanine Aminotransfer ALT/SGPT 21 U/L (13-56); Albumin, Serum 2.2 g/dL (3.2-5.0); Alkaline Phosphatase 91 U/L (45-117); Anion Gap 8 (5-15); BUN 56 mg/dL (7-18); BUN/Creat Ratio 20.3 RATIO (10-20); Bilirubin, Direct 0.16 mg/dL (0.00-0.30); Calcium,Total 8.9 mg/dL (8.5-10.1); Chloride 104 mmol/L (98-107); Creatinine, Serum 2.76 mg/dL (0.55-1.02); EST Glomerular Filtration Rate 19 mL/min (>60); Est Glom Filt Rate - Afr Amer 22 mL/min (>60); Estimated Creatinine Clearance 25.52 ml/min; Globulin 4.3 g/dL (2.2-4.2); Glucose 193 mg/dL (74-106); Magnesium 2.1 mg/dL (1.6-2.6); Potassium 4.6 mmol/L (3.5-5.1); Protein, Total 6.5 g/dL (6.4-8.2); Sodium Level 137 mmol/L (136-145); Thyroid Stim Hormone (TSH) 0.87 uIU/mL (0.358-3.74)
[2023-11-23 08:16] LABS: Bedside Glucose 173 mg/dL (74-106)
[2023-11-23] MEDS: Ceftriaxone 1 GM/50 ML BAG IV (08:37)
[2023-11-23] MEDS: Polyethylene Glycol 3350 17 GM PACKET PO (08:37)
[2023-11-23] MEDS: Gabapentin 300 MG Capsule PO (08:37)
[2023-11-23] MEDS: Menthol/Lanolin/Calamine/Znox 113 GM Tube 1 APPLIC TOPICAL ×2 (08:37→21:40)
[2023-11-23] MEDS: Insulin Lispro 100 UNIT/ML INSULN.PEN 40 UNIT SC (08:38)
[2023-11-23] MEDS: Nystatin Powder 15gm Bottle 1 APPLIC TOPICAL ×2 (08:38→21:39)
[2023-11-23] MEDS: Insulin Lispro 100 UNIT/ML INSULN.PEN SC (08:39)
[2023-11-23] MEDS: Divalproex Sodium 125 MG Tablet 375 MG PO ×2 (08:39→21:37)
[2023-11-23] MEDS: Ziprasidone HCl 20 MG Capsule 80 MG PO (08:41)
[2023-11-23] MEDS: Docusate Sodium 100 MG Capsule PO ×2 (08:41→21:36)
[2023-11-23] MEDS: Pantoprazole Sodium 20 MG Tablet PO (08:42)
[2023-11-23] MEDS: Sertraline 50 MG Tablet 25 MG PO (08:42)
[2023-11-23] MEDS: Aspirin E.C. 81 MG Tablet PO (08:42)
[2023-11-23] MEDS: Metoprolol(XL)Succ 100 MG Tablet PO (08:42)
[2023-11-23] MEDS: Vibegron 75 MG TABLET PO (08:42)
[2023-11-23 12:02] LABS: Bedside Glucose 124 mg/dL (74-106)
[2023-11-23] MEDS: Insulin Lispro 100 UNIT/ML INSULN.PEN 35 UNIT SC (12:42)
[2023-11-23] MEDS: amLODIPine 5 MG Tablet PO (12:42)
--- NOTE | 2023-11-23 15:11 | PCM.PN.HOSP ---
Reason for Visit Reason for Visit: Diagnoses Urinary tract infection, site not specified (11/22/23) Subjective Subjective Patient was seen and examined today, her white blood cell count today was 15.2. Creatinine today was 2.76. Patient is resting comfortably, she has no complaints for this examiner Objective Data Objective Data Vital Signs: Vital Signs Temp Pulse Resp BP Pulse Ox O2 Del Method O2 Flow Rate 98.8 F 92 28 H 133/77 H 93 Nasal Cannula 3 11/23/23 11:00 11/23/23 11:00 11/23/23 11:00 11/23/23 11:00 11/23/23 11:00 11/23/23 14:00 11/23/23 14:00 FiO2 3 11/23/23 06:00 Oxygen Flow Rate (L/min) 3 Oxygen Delivery Method Nasal Cannula Weight: 120.565 kg Body Mass Index (BMI) 53.6 Intake & Output: Intake and Output for Last 24 Hours 11/21/23 11/22/23 11/23/23 23:59 23:59 23:59 Intake Total 2370 / 2370 530 / 530 Output Total 250 / 250 650 / 650 Balance 2120 / 2120 -120 / -120 Lab / Micro Data 11/23/23 05:46 11/23/23 05:46 Labs: Laboratory Results - last 24 hr 11/22/23 15:05: WBC 16.6 H, RBC 5.14, Hgb 14.7, Hct 45.0, MCV 87.5, MCH 28.6, MCHC 32.7, RDW Std Deviation 51.9 H, RDW Coeff of Doris 16.2 H, Plt Count 125 L, MPV 8.8, Immature Gran % (Auto) 0.800, Neut % (Auto) 76.2 H, Lymph % (Auto) 13.5 L, [place] % (Auto) 9.0, Eos % (Auto) 0.1, Baso % (Auto) 0.4, Absolute Neuts (auto) 12.7 H, Absolute Lymphs (auto) 2.24, Nucleated RBC % 0, Sodium 134 L, Potassium 5.1, Chloride 99, Carbon Dioxide 28.0, Anion Gap 7, BUN 48 H, Creatinine 2.55 H, Estim Creat Clear Calc 27.95, Est GFR (MDRD) Af Amer 25 L, Est GFR (MDRD) Non-Af 20 L, BUN/Creatinine Ratio 18.8, Glucose 263 H, Lactic Acid 2.0, Calcium 9.4, B-Natriuretic Peptide 174.6 H 11/22/23 15:45: Urine Color Yellow, Urine Clarity Cloudy, Urine pH 5.0, Ur Specific [place] 1.010, Urine Protein 500 H, Urine Glucose (UA) 1000 H, Urine Ketones Negative, Urine Occult Blood 250 H, Urine Nitrite Negative, Urine Bilirubin Negative, Urine Urobilinogen 1 H, Ur Leukocyte Esterase 500 H, Urine RBC 10-25 SEEN, Urine WBC >100 SEEN, Ur Squamous Epith Cells 0 SEEN, Urine Bacteria 3+, Urine Mucus 0 SEEN 11/22/23 19:34: Lactic Acid 1.0 11/22/23 21:37: POC Glucose 244 H 11/23/23 00:14: POC Glucose 194 H 11/23/23 05:46: WBC 15.2 H, RBC 4.88, Hgb 13.6, Hct 43.4, MCV 88.9, MCH 27.9, MCHC 31.3 L, RDW Std Deviation 54.2 H, RDW Coeff of Doris 16.5 H, Plt Count 104 L, MPV 9.0, Immature Gran % (Auto) 0.800, Neut % (Auto) 75.4 H, Lymph % (Auto) 13.4 L, [place] % (Auto) 9.1, Eos % (Auto) 0.9, Baso % (Auto) 0.4, Absolute Neuts (auto) 11.5 H, Absolute Lymphs (auto) 2.04, Nucleated RBC % 0, PT 15.1 H, INR 1.2, Sodium 137, Potassium 4.6, Chloride 104, Carbon Dioxide 25.0, Anion Gap 8, BUN 56 H, Creatinine 2.76 H, Estim Creat Clear Calc 25.52, Est GFR (MDRD) Af Amer 22 L, Est GFR (MDRD) Non-Af 19 L, BUN/Creatinine Ratio 20.3 H, Glucose 193 H, Calcium 8.9, Phosphorus 4.0, Magnesium 2.1, Total Bilirubin 0.30, Direct Bilirubin 0.16, AST 27, ALT 21, Alkaline Phosphatase 91, Total Protein 6.5, Albumin 2.2 L, Globulin 4.3 H, Albumin/Globulin Ratio 0.5 L, TSH 0.87 11/23/23 07:57: POC Glucose 173 H 11/23/23 11:43: POC Glucose 124 H Micro: Microbiology 11/22/23 15:45 Urine, Catheterized Urine Culture - Preliminary GNR lactose plant protection guard 11/22/23 15:05 Blood Culture (Wb) - Right Hand Blood Culture - Preliminary ABG Data ABG results: ABG 11/22/23 11/23/23 15:29 00:25 Specimen Type LEROY ART Sample Site Not entered R Radial pH 7.29 L Bicarbonate Actual 26.2 H Total CO2 28 Base Excess -1 O2 Saturation 88 L O2 % 3.0 ABG pCO2 54.8 H ABG pO2 61 L Vickey Test Positive VBG pH 7.36 VBG pO2 90 H VBG HCO3 27 H VBG Total CO2 29 VBG O2 Sat (Calc) 96 H VBG Base Excess 2 POC Mix VBG pCO2 Pt Tmp 49.1 O2 Delivery Device Not entered Cannula Vent Mode Not entered Radiography Diagnostic Testing: Radiology Impression Chest X-Ray 11/22/23 15:20 IMPRESSION: Mild left basilar atelectasis or scarring. Electronically Signed: Katherin Lorenzo MD at 15:56 EDT , Renal Ultrasound 11/22/23 16:54 IMPRESSION: Findings suspicious for cystitis. Correlate with urinalysis. No hydronephrosis. Electronically Signed: William Escalera MD at 22:31 EDT , Physical Exam Const alert and no apparent distress Constitutional Narrative: Patient is morbidly obese HEENT head/scalp atraumatic and moist oral mucous membranes Eyes PERRL, EOMs intact bilaterally and conjunctivae normal Neck supple and no JVD Resp normal respiratory effort, no retractions and no use of accessory muscles Cardio regular rate, regular rhythm, S1 normal heart sound and S2 normal heart sound GI normal to inspection, nondistended, normoactive bowel sounds and soft to palpation GI Narrative: Patient is morbidly obese Extremity no clubbing, cyanosis or edema Neuro CN's II-XII intact bilaterally, moves all extremities, no focal motor deficits and no sensory deficits noted Sensorium / Orientation: awake, alert, oriented to person and oriented to place Psych affect normal Assessment & Plan Assessment/Plan (1) UTI (urinary tract infection): PLAN: Plan 1. Acute cystitis-patient will remain on her current antibiotics, urine cultures pending #2 hypoxia-etiology unclear, possibly secondary to atelectasis and hypoventilation #3 chronic kidney disease stage IV-complicates care, management, recovery, and prognosis #4 type 2 diabetes-blood sugars are monitored, sliding scale insulin will be administered as needed #5 hyperlipidemia-patient is on a statin #6 psychological behavioral disorder-type unknown, patient is on psychiatric meds at this time, she will remain on her present medications #7 cardiopathy-etiology unclear, patient's last echocardiogram was performed in August of last year and showed an EF of 40% I do not believe the patient has sepsis at this time Total clinical time spent by myself addressing the patient's medical issues, reviewing all of her data, and collaborating with patient's care team: 50 minutes Charges/Coding Visit Charges Inpatient E&M: 88414 Subs Hosp L3
[2023-11-23 16:55] LABS: Bedside Glucose 99 mg/dL (74-106)
[2023-11-23] MEDS: Atorvastatin Calcium 10 MG Tablet PO (21:38)
[2023-11-23] MEDS: Sertraline 100 MG Tablet PO (21:39)
[2023-11-23] MEDS: Doxepin Hydrochloride 10 MG Capsule PO (21:39)
[2023-11-23] MEDS: OLANZapine 10 MG Tablet PO (21:39)
[2023-11-23 22:45] LABS: Bedside Glucose 106 mg/dL (74-106)
[2023-11-24] VITALS (12 sets, daily range): BP systolic 113–146; BP diastolic 59–87; PULSE 76–84; RESP 12–24; TEMP 36.6–38.2; O2SAT 92–97
[2023-11-24] MEDS: Acetaminophen 325 MG Tablet 650 MG PO ×2 (04:56→18:32)
[2023-11-24] MEDS: Enoxaparin 30 MG/0.3 ML Syringe SC (05:01)
[2023-11-24 06:23] LABS: Absolute Lymphocyte Count 2.52 X10^3/uL (0.83-4.51); Absolute Neutrophil Count 6.6 X10^3/uL (2.0-7.7); Basophil# 0.04 X10^3/uL; Basophil% 0.4 % (0-1); Eosinophil# 0.09 X10^3/uL; Eosinophils% 0.9 % (0-5); Hematocrit 41.4 % (37-47); Hemoglobin 12.9 g/dL (12.0-15.0); Lymphocyte # 2.52 X10^3/ul (0.83-4.51); Mean Corp Hgb Conc 31.2 g/dL (32-36); Mean Corpuscular Hgb 27.9 pg (27.0-32.0); Mean Corpuscular Volume 89.6 fL (81-99); Mean Platelet Vol. 9.2 fl (6.2-12.0); Monocyte# 1.23 X10^3/uL; Monocyte% 11.7 % (0-10); NRBC Flagged by Analyzer 0 % (0-5); Neutrophil # 6.57 X10^3/uL (2.7-7.7); Neutrophil % 62.5 % (47-70); Platelet Count 107 K/mm3 (150-450); RBC Distribution Width CV 16.5 % (11.6-14.6); RBC Distribution Width SD 54.8 fl (35.1-43.9); Red Blood Count 4.62 M/mm3 (4.2-5.4); White Blood Count 10.5 K/mm3 (4.4-11.0)
[2023-11-24 06:46] LABS: Anion Gap 8 (5-15); BUN 63 mg/dL (7-18); BUN/Creat Ratio 22.7 RATIO (10-20); Calcium,Total 8.9 mg/dL (8.5-10.1); Chloride 103 mmol/L (98-107); Creatinine, Serum 2.77 mg/dL (0.55-1.02); EST Glomerular Filtration Rate 19 mL/min (>60); Est Glom Filt Rate - Afr Amer 22 mL/min (>60); Estimated Creatinine Clearance 25.43 ml/min; Glucose 201 mg/dL (74-106); Potassium 4.6 mmol/L (3.5-5.1); Sodium Level 136 mmol/L (136-145)
[2023-11-24] MEDS: Ziprasidone HCl 20 MG Capsule 80 MG PO (07:46)
[2023-11-24] MEDS: Aspirin E.C. 81 MG Tablet PO (07:46)
[2023-11-24 08:13] LABS: Bedside Glucose 168 mg/dL (74-106)
[2023-11-24] MEDS: Insulin Lispro 100 UNIT/ML INSULN.PEN 40 UNIT SC (08:18)
[2023-11-24] MEDS: Insulin Lispro 100 UNIT/ML INSULN.PEN SC ×2 (08:19→11:54)
[2023-11-24] MEDS: Vibegron 75 MG TABLET PO (09:25)
[2023-11-24] MEDS: Nystatin Powder 15gm Bottle 1 APPLIC TOPICAL ×2 (09:25→21:17)
[2023-11-24] MEDS: Divalproex Sodium 125 MG Tablet 375 MG PO ×2 (09:25→21:14)
[2023-11-24] MEDS: Docusate Sodium 100 MG Capsule PO ×2 (09:25→21:15)
[2023-11-24] MEDS: Menthol/Lanolin/Calamine/Znox 113 GM Tube 1 APPLIC TOPICAL ×2 (09:25→21:15)
[2023-11-24] MEDS: Sertraline 50 MG Tablet 25 MG PO (09:26)
[2023-11-24] MEDS: Metoprolol(XL)Succ 100 MG Tablet PO (09:26)
[2023-11-24] MEDS: amLODIPine 5 MG Tablet PO (09:26)
[2023-11-24] MEDS: Pantoprazole Sodium 20 MG Tablet PO (09:26)
[2023-11-24] MEDS: 0.9% Saline Lock 10 ML Syringe IV (09:29)
[2023-11-24] MEDS: Gabapentin 300 MG Capsule PO (09:29)
[2023-11-24] MEDS: Ceftriaxone 1 GM/50 ML BAG IV (09:29)
[2023-11-24 11:14] LABS: Bedside Glucose 151 mg/dL (74-106)
[2023-11-24] MEDS: Insulin Lispro 100 UNIT/ML INSULN.PEN 35 UNIT SC (11:53)
--- NOTE | 2023-11-24 12:30 | CASEMGMT ---
Social Work -discharge planning Reason for intervention: Assisted living versus nursing facility at time of discharge Collaboration with nurse counseling case manager reports physician has indicated recommendation for nursing facility rather than assisted living at time of discharge. Chart reviewed and noted patient has been a resident at [facility] for a couple of years now. Met with patient in room, introducing to self and social work role. Patient reports would prefer to return back to the [facility] but if had to go to longterm would want to stay at [facility]. Patient declined wanting any type of longterm choice list. This sql report writer agreed to have updates sent to the [facility] facility for review, to see if there is enough staffing to help manage patient's current level of care needs. Discussed with patient that should the [facility] recommend nursing facility as well, referral to [facility] would be made. Patient voiced agreement. Plan: Updates to be sent to [facility] for determination of assisted living versus nursing facility, as patient's preference was for assisted living. Social work to follow and assist. -INEZ Moe, ELEMENTARY ESL TEACHER *This note was generated with [employer]box[employer] dictation software. It may contain incorrect words, spelling, and punctuation that were not noted in review of the chart prior to signing*
--- NOTE | 2023-11-24 12:35 | CASEMGMT ---
Addendum entered by Grace Sanchez 11/24/23 13:33: would like patient to have a skilled stay before returning to [place]. SW updated. Grace Sanchez DC Planning Asst. Original Note: Discharge Planning Updates sent to [place] via [facility]. Grace Sanchez DC Planning Asst.
--- NOTE | 2023-11-24 14:26 | PCM.TXEXTCAR ---
Diet Diet Order/Speech Therapy: 11/23/23 14:37 Diet: Cardiac: Calorie-Controlled Food consistency:: Regular Liquid Consistency:: Regular/Thin Dietary Modifications:: Consistent Carbohydrate Sodium Restricted Is pt able to select menu?: Yes How many daily calories?: 1800 calorie Routine Orders/Code Status Code Status: Full Code Therapies Weight Bearing: Full weight bearing Physical Therapy: Eval and Treat Occupational Therapy: Eval and Treat Problem/Diagnosis (1) UTI (urinary tract infection): Status: Acute Code(s): N39.0 - Urinary tract infection, site not specified Plan 1. Acute cystitis-patient will remain on her current antibiotics, urine cultures pending #2 Chronic hypoxic respiratory failure-patient stated today that she does have home oxygen that she uses as needed, patient currently requires 2 L here #3 chronic kidney disease stage IV-complicates care, management, recovery, and prognosis #4 type 2 diabetes-blood sugars are monitored, sliding scale insulin will be administered as needed #5 hyperlipidemia-patient is on a statin #6 psychological behavioral disorder-type unknown, patient is on psychiatric meds at this time, she will remain on her present medications #7 cardiopathy-etiology unclear, patient's last echocardiogram was performed in August of last year and showed an EF of 40% I do not believe the patient has sepsis at this time Total clinical time spent by myself addressing the patient's medical issues, reviewing all of her data, and collaborating with patient's care team: 50 minutes Allergies/Procedures Done in Hospital Allergies codeine Allergy (Verified 11/22/23 14:30) Hives prochlorperazine edisylate (From Compazine) Allergy (Verified 11/22/23 14:30) Swelling prochlorperazine maleate (From Compazine) Allergy (Verified 11/22/23 14:30) Swelling Procedures: None Type of Care/Length of Stay Estimated LOS: Convalescent Care Less Than 30 days Type of Care Needed: Skilled Rehab Potential: Fair Prognosis: Fair Additional Orders/Day of Discharge H&P will serve as current which was dated: 11/23/23 Day of Discharge: 11/25/23 Dietary and Speech Recommendations Dietitian Recommendations/Changes: Will change diet to 1800 calorie, consistent carbohydrate/cardiac. NO ONS, no extra protein--Restrict protein as needed given BUN 56/creat 2.76. Diet education as pt willing prior to d/c. Discharge Plan Admission Admit Date/Time: 11/22/23 16:40 Primary Reason for Your Visit: Acute cystitis Attending Provider: Daniel Hernandez Primary Care Provider: Care Physician,No Primary Consulting Providers: Facundo Corral Discharge Orders/Prescriptions Prescriptions: New cephalexin 250 mg Capsule 250 mg PO TID Qty: 15 0RF Rx Instructions: Give for 15 doses then discontinue menthol-zinc oxide [Calmoseptine] 0.44-20.6 % Ointment 1 applic topical BID Qty: 0 0RF Protocol: *Topical Application Instructions APPLICATION INSTRUCTIONS: apply to buttocks nystatin [Nyamyc] 100,000 unit/gram Powder 1 applic topical BID Qty: 0 0RF Protocol: *Topical Application Instructions APPLICATION INSTRUCTIONS: apply to abdominal/breast folds and groin Continued simvastatin 20 mg tablet 20 mg PO QHS gabapentin 300 mg capsule 300 mg PO DAILY ziprasidone HCl 80 mg capsule 80 mg PO DAILY Rx Instructions: TAKE ONE CAPSULE BY MOUTH ONCE DAILY WITH FOOD. MUST EAT 500 CALORIES FOR ABSORPTION. doxepin 10 mg capsule 10 mg PO QHS omeprazole 20 mg capsule,delayed release(DR/EC) 20 mg PO DAILY (DME) FreeStyle Jolie 2 [place] Misc See Rx Instructions .Route Qty: 1 0RF Rx Instructions: As directed divalproex 125 mg tablet,delayed release (DR/EC) 375 mg PO BID aspirin 81 mg tablet,delayed release (DR/EC) 81 mg PO DAILY Qty: 90 3RF Gemtesa 75 mg tablet 75 mg PO DAILY insulin aspart U-100 100 unit/mL (3 mL) insulin pen 35 unit subcut LUNCH insulin aspart U-100 100 unit/mL (3 mL) insulin pen 37 unit subcut DINNER insulin glargine [Lantus Solostar U-100 Insulin] 100 unit/mL (3 mL) insulin pen 50 unit subcut QHS fesoterodine [Toviaz] 8 mg tablet extended release 24 hr 8 mg PO DAILY metoprolol succinate 100 mg tablet extended release 24 hr 100 mg PO DAILY Qty: 90 3RF acetaminophen 325 mg tablet 650 mg PO BID PRN (Reason: PAIN/FEVER) sertraline 100 mg tablet 100 mg PO QHS Patient Comments: OF 08/27/23 PT ONLY TAKES ONE 100MG TABLET BY MOUTH ONCE DAILY AT BEDTIME. olanzapine 10 mg tablet 10 mg PO QHS ergocalciferol (vitamin D2) [Drisdol] 1,250 mcg (50,000 unit) Capsule 1,250 mcg PO MOTH furosemide 20 mg tablet 20 mg PO DAILY Qty: 30 1RF docusate sodium [Colace] 100 mg capsule 100 mg PO BID polyethylene glycol 3350 [Miralax] 17 gram/dose powder 17 g PO DAILY promethazine 25 mg tablet 25 mg PO TID PRN (Reason: NAUSEA/VOMITING ) Qty: 10 0RF Jardiance 25 mg tablet 25 mg PO DAILY insulin aspart U-100 100 unit/mL (3 mL) insulin pen 40 unit subcut BREAKFAST insulin aspart U-100 100 unit/mL (3 mL) insulin pen See Protocol subcut TIDCM Protocol: 6. Sliding Scale Insulin Custom Condition: mg/dl range Dose/Route: Number of Units Condition: 180-220 Dose/Route: 3 Condition: 221-260 Dose/Route: 5 Condition: 261> Dose/Route: 8 Protocol Text: Custom Sliding Scale albuterol sulfate 2.5 mg /3 mL (0.083 %) solution for nebulization 2.5 mg inhalation Q4H PRN (Reason: SHORTNESS OF BREATH ) cetirizine 5 mg tablet 5 mg PO DAILY PRN (Reason: ALLERGIES ) hydroxyzine pamoate 25 mg capsule 25 mg PO TID PRN (Reason: ANXIETY ) albuterol sulfate [ProAir HFA] 90 mcg/actuation HFA aerosol inhaler 2 puff inhalation Q4H PRN (Reason: SHORTNESS OF BREATH/WHEEZING ) ferrous sulfate 325 mg (65 mg iron) tablet 325 mg PO TID sertraline 25 mg tablet 25 mg PO DAILY amlodipine 5 mg tablet 5 mg PO DAILY Qty: 30 6RF (DME) FreeStyle Jolie 2 Sensor Kit See Rx Instructions .Route Qty: 2 5RF Rx Instructions: 1 sensor q 14 days Referrals / Follow Up: Care Physician,No Primary [Primary Care Provider] - Disposition Disposition (needs filled in before D/C Order can be placed): Group Home Facility
--- NOTE | 2023-11-24 15:03 | CHAPLAIN ---
Type of Pastoral Visit _x__ Initial Visit ___ Follow-up Visit ___ On-call Visit ___ General Patient Visit ___ Spiritual Assessment ___ Family Conference ___ Bereavement ___ Rapid Response ___ Code Blue ___ Other (describe below) Pastoral Care Referral From _x__ Patient ___ Family ___ Nurse ___ Physician ___ Psychiatric Secretary ___ Cooker Sulfite ___ Other (describe below) Sacrament/Intervention _x__ Active listening ___ Anointing ___ Mu-Ism ___ Bereavement ___ Communion ___ [place] exploration ___ ___ Life review _x__ Prayer ___ Reconciliation ___ Sacrament of Sick _x__ Supportive presence ___ Wedding ___ Other (describe below) Pastoral Comments patient could answer questions but it was apparent that she had some difficulties with clarity of thought and processing; pt did ask for assistance with pillows and positioning so the [employer] was called to give care; pt needed help with her flavored ice too as she was attempting to eat but hand management was difficult for her; asked pt if needed someone to sit with her and to have a prayer and she agreed to both; time and encouraging words given; pt states that she has no family that can help her; she is estranged from a sister
--- NOTE | 2023-11-24 15:30 | CASEMGMT ---
Social work Received notice from discharge director financial planning, that Martin turney's director hardware at the [facility] is recommending patient go to a nursing facility prior to returning to assisted living level of care. Based on patient's agreement to this bid writer earlier this date about going to the nursing facility should the [facility] recommend this, this bid writer completed a PASRR screen for fdc admission. Submitted PASRR results along with level of care information to the [facility] agency on aging, requesting an intermediate level of care under Medicaid. Plan: [facility], for physical and Occupational Therapy, prior to returning to assisted living. Level of care submission is pending. -INEZ Moe, ANTIQUE CLOCKS REPAIRER *This note was generated with [employer] dictation software. It may contain incorrect words, spelling, and punctuation that were not noted in review of the chart prior to signing*
[2023-11-24 16:22] LABS: Bedside Glucose 80 mg/dL (74-106)
--- NOTE | 2023-11-24 16:22 | CASEMGMT ---
ADVANCE DIRECTIVE VALIDATION Patient answered no to any type of advance directives and declined further information. When this bid writer in room with patient today to discuss discharge planning, the patient confirmed this information. Declined this bid writer's offer to help complete. Patient reports that does not have anyone she wishes to designate as a POAHC. Declines information or assist with this topic. -GISELA Moe
--- NOTE | 2023-11-24 17:49 | PN.HOSP_ITS ---
Reason for Visit Reason for Visit: Diagnoses Urinary tract infection, site not specified (11/22/23) Subjective Subjective Patient was seen and examined today, I talked with her briefly about discharge planning and due to her overall weakness and debility, she is consented to go to a fdc facility for short-term rehab services. I confirmed with nursing that the patient does have oxygen at her assisted living facility. Objective Data Objective Data Vital Signs: Vital Signs Temp Pulse Resp BP Pulse Ox O2 Del Method O2 Flow Rate 97.9 F 76 20 H 116/59 L 95 Nasal Cannula 3 11/24/23 13:35 11/24/23 13:35 11/24/23 13:35 11/24/23 13:35 11/24/23 13:35 11/24/23 13:43 11/24/23 13:43 FiO2 35 11/24/23 03:17 Oxygen Flow Rate (L/min) 3 Oxygen Delivery Method Nasal Cannula Weight: 120.565 kg Body Mass Index (BMI) 53.6 Intake & Output: Intake and Output for Last 24 Hours 11/22/23 11/23/23 11/24/23 23:59 23:59 23:59 Intake Total 2370 / 2370 770 / 770 170 / 170 Output Total 250 / 250 1100 / 1100 600 / 600 Balance 2120 / 2120 -330 / -330 -430 / -430 Lab / Micro Data 11/24/23 05:24 11/24/23 05:21 Labs: Laboratory Results - last 24 hr 11/23/23 21:33: POC Glucose 106 11/24/23 05:21: Sodium 136, Potassium 4.6, Chloride 103, Carbon Dioxide 25.0, Anion Gap 8, BUN 63 H, Creatinine 2.77 H, Estim Creat Clear Calc 25.43, Est GFR (MDRD) Af Amer 22 L, Est GFR (MDRD) Non-Af 19 L, BUN/Creatinine Ratio 22.7 H, G lucose 201 H, Calcium 8.9 11/24/23 05:24: WBC 10.5, RBC 4.62, Hgb 12.9, Hct 41.4, MCV 89.6, MCH 27.9, MCHC 31.2 L, RDW Std Deviation 54.8 H, RDW Coeff of Doris 16.5 H, Plt Count 107 L, MPV 9.2, Immature Gran % (Auto) 0.500, Neut % (Auto) 62.5, Lymph % (Auto) 24.0, [place] % (Auto) 11.7 H, Eos % (Auto) 0.9, Baso % (Auto) 0.4, Absolute Neuts (auto) 6.6, Absolute Lymphs (auto) 2.52, Nucleated RBC % 0 11/24/23 07:45: POC Glucose 168 H 11/24/23 10:55: POC Glucose 151 H 11/24/23 16:01: POC Glucose 80 Micro: Microbiology 11/22/23 15:45 Urine, Catheterized Urine Culture - Final Escherichia coli 11/22/23 15:05 Blood Culture (Wb) - Right Hand Blood Culture - Preliminary GNR lactose passenger service agent Radiography Diagnostic Testing: Radiology Impression Echocardiogram 11/22/23 17:13 Interpretation Summary Normal LV size. Left ventricular systolic function is normal. Stage 1 diastolic dysfunction. The left ventricular ejection fraction is 55 %. Contrast injection was performed. Ordering Physician: Facundo Corral Performed By: Mindi Rodriguez RDCS Physical Exam Narrative alert and no apparent distress Constitutional Narrative: Patient is morbidly obese HEENT head/scalp atraumatic and moist oral mucous membranes Eyes PERRL, EOMs intact bilaterally and conjunctivae normal Neck supple and no JVD Resp normal respiratory effort, no retractions and no use of accessory muscles Cardio regular rate, regular rhythm, S1 normal heart sound and S2 normal heart sound GI normal to inspection, nondistended, normoactive bowel sounds and soft to palpation GI Narrative: Patient is morbidly obese Extremity no clubbing, cyanosis or edema Neuro CN's II-XII intact bilaterally, moves all extremities, no focal motor deficits and no sensory deficits noted Sensorium / Orientation: awake, alert, oriented to person and oriented to place Psych affect normal Assessment & Plan Assessment/Plan (1) UTI (urinary tract infection): PLAN: Plan 1. Acute cystitis-patient will remain on her current antibiotics, urine culture shows pansensitive E. coli, she will be transition to oral Keflex, patient's blood culture was positive for gram-negative lactose passenger service agent-it has not been identified however. #2 Chronic hypoxic respiratory failure-patient stated today that she does have home oxygen that she uses as needed, patient currently requires 2 L here #3 chronic kidney disease stage IV-complicates care, management, recovery, and prognosis #4 type 2 diabetes-blood sugars are monitored, sliding scale insulin will be administered as needed #5 hyperlipidemia-patient is on a statin #6 psychological behavioral disorder-type unknown, patient is on psychiatric meds at this time, she will remain on her present medications #7 cardiopathy-etiology unclear, patient's last echocardiogram was performed in August of last year and showed an EF of 40% #8 acute debility-I think patient would benefit from a short-term stay in a fdc facility for inpatient rehab services, we are trying to arrange this. #9 morbid obesity-complicates care, management, recovery, and prognosis I do not believe the patient has sepsis at this time Total clinical time spent by myself addressing the patient's medical issues, reviewing all of her data, and collaborating with patient's care team: 35 minutes Charges/Coding Visit Charges Inpatient E&M: 61997 Subs Hosp L2
[2023-11-24] MEDS: Doxepin Hydrochloride 10 MG Capsule PO (21:15)
[2023-11-24] MEDS: Sertraline 100 MG Tablet PO (21:15)
[2023-11-24] MEDS: OLANZapine 10 MG Tablet PO (21:15)
[2023-11-24] MEDS: Atorvastatin Calcium 10 MG Tablet PO (21:17)
[2023-11-24 22:56] LABS: Bedside Glucose 104 mg/dL (74-106)
[2023-11-25 02:09] VITALS: RESP 12
[2023-11-25 03:14] VITALS: BP 124/78; PULSE 78; RESP 20; TEMP 36.8; O2SAT 95
[2023-11-25] MEDS: Enoxaparin 30 MG/0.3 ML Syringe SC (06:04)
[2023-11-25] MEDS: Cephalexin 250 MG Capsule PO (06:04)
[2023-11-25 07:44] VITALS: BP 144/80; PULSE 81; RESP 16; TEMP 36.6; O2SAT 94
[2023-11-25] MEDS: Acetaminophen 325 MG Tablet 650 MG PO (07:48)
[2023-11-25] MEDS: Aspirin E.C. 81 MG Tablet PO (07:50)
[2023-11-25] MEDS: Insulin Lispro 100 UNIT/ML INSULN.PEN 40 UNIT SC (07:52)
[2023-11-25] MEDS: Docusate Sodium 100 MG Capsule PO (07:52)
[2023-11-25] MEDS: Divalproex Sodium 125 MG Tablet 375 MG PO (07:52)
[2023-11-25] MEDS: Polyethylene Glycol 3350 17 GM PACKET PO (07:53)
[2023-11-25] MEDS: Vibegron 75 MG TABLET PO (07:53)
[2023-11-25] MEDS: amLODIPine 5 MG Tablet PO (07:53)
[2023-11-25 07:54] VITALS: PULSE 81
[2023-11-25] MEDS: Pantoprazole Sodium 20 MG Tablet PO (07:54)
[2023-11-25] MEDS: Sertraline 50 MG Tablet 25 MG PO (07:54)
[2023-11-25] MEDS: Metoprolol(XL)Succ 100 MG Tablet PO (07:54)
[2023-11-25] MEDS: Gabapentin 300 MG Capsule PO (08:00)
[2023-11-25] MEDS: Menthol/Lanolin/Calamine/Znox 113 GM Tube 1 APPLIC TOPICAL (08:06)
[2023-11-25] MEDS: Nystatin Powder 15gm Bottle 1 APPLIC TOPICAL (08:06)
[2023-11-25 09:27] LABS: Bedside Glucose 139 mg/dL (74-106)
--- NOTE | 2023-11-25 10:23 | PCM.DC.SUM ---
Providers Date of Admission: 11/22/23 Date of Discharge: 11/25/23 Primary Care Physician: Rebecca Primary Care Phys Reason For Visit: UTI Diagnosis Discharge Diagnosis (1) UTI (urinary tract infection): Status: Acute Code(s): N39.0 - Urinary tract infection, site not specified Plan 1. Acute cystitis-patient will remain on her current antibiotics, urine cultures pending #2 Chronic hypoxic respiratory failure-patient stated today that she does have home oxygen that she uses as needed, patient currently requires 2 L here #3 chronic kidney disease stage IV-complicates care, management, recovery, and prognosis #4 type 2 diabetes-blood sugars are monitored, sliding scale insulin will be administered as needed #5 hyperlipidemia-patient is on a statin #6 psychological behavioral disorder-type unknown, patient is on psychiatric meds at this time, she will remain on her present medications #7 cardiopathy-etiology unclear, patient's last echocardiogram was performed in August of last year and showed an EF of 40% #8 morbid obesity I do not believe the patient has sepsis at this time Total clinical time spent by myself addressing the patient's medical issues, reviewing all of her data, and collaborating with patient's care team: 50 minutes Medications at Discharge Home Medications doxepin 10 mg capsule 10 mg PO QHS DEPRESSION 05/29/22 flash glucose scanning reader ([employer] Jolie 2 [place]) #1 ea 05/29/22 gabapentin 300 mg capsule 300 mg PO DAILY NEUROPATHY 05/29/22 omeprazole 20 mg capsule,delayed release 20 mg PO DAILY GERD 05/29/22 simvastatin 20 mg tablet 20 mg PO QHS CHOLESTEROL 05/29/22 ziprasidone HCl 80 mg capsule 80 mg PO DAILY BIPOLAR DISORDER 05/29/22 amlodipine 5 mg tablet 5 mg PO DAILY BLOOD PRESSURE #30 tabs 07/15/22 acetaminophen 325 mg tablet 650 mg PO BID PRN PAIN/FEVER 08/28/22 ergocalciferol (vitamin D2) 1,250 mcg (50,000 unit) capsule (Drisdol) 1,250 mcg PO MOTH SUPPLEMENT 08/28/22 olanzapine 10 mg tablet 10 mg PO QHS BIPOLAR DISORDER 08/28/22 sertraline 100 mg tablet 100 mg PO QHS DEPRESSION 08/28/22 furosemide 20 mg tablet 20 mg PO DAILY EDEMA #30 tabs 08/31/22 flash glucose sensor ([employer] Jolie 2 Sensor kit) #2 ea 09/23/22 docusate sodium 100 mg capsule (Colace) 100 mg PO BID CONSTIPATION 12/06/22 polyethylene glycol 3350 17 gram/dose oral powder (Miralax) 17 g PO DAILY CONSTIPATION 12/06/22 aspirin 81 mg tablet,delayed release 81 mg PO DAILY HEART HEALTH #90 tabs 12/18/22 promethazine 25 mg tablet 25 mg PO TID PRN NAUSEA/VOMITING #10 tabs 01/20/23 divalproex 125 mg tablet,delayed release 375 mg PO BID BIPOLAR DISORDER 07/07/23 fesoterodine 8 mg tablet,extended release 24 hr (Toviaz) 8 mg PO DAILY OVERACTIVE BLADDER 07/07/23 insulin aspart U-100 100 unit/mL (3 mL) subcutaneous pen 35 unit subcut LUNCH DIABETES 07/07/23 insulin aspart U-100 100 unit/mL (3 mL) subcutaneous pen 37 unit subcut DINNER DIABETES 07/07/23 insulin glargine 100 unit/mL (3 mL) subcutaneous pen (Lantus Solostar U-100 Insulin) 50 unit subcut QHS 07/07/23 metoprolol succinate 100 mg tablet,extended release 24 hr 100 mg PO DAILY BLOOD PRESSURE #90 tabs 07/07/23 vibegron 75 mg tablet (Gemtesa) 75 mg PO DAILY OVERACTIVE BLADDER 07/07/23 albuterol sulfate 2.5 mg/3 mL (0.083 %) solution for nebulization 2.5 mg inhalation Q4H PRN SHORTNESS OF BREATH 08/27/23 albuterol sulfate 90 mcg/actuation aerosol inhaler (ProAir HFA) 2 puff inhalation Q4H PRN SHORTNESS OF BREATH/WHEEZING 08/27/23 cetirizine 5 mg tablet 5 mg PO DAILY PRN ALLERGIES 08/27/23 empagliflozin 25 mg tablet (Jardiance) 25 mg PO DAILY DIABETES 08/27/23 hydroxyzine pamoate 25 mg capsule 25 mg PO TID PRN ANXIETY 08/27/23 insulin aspart U-100 100 unit/mL (3 mL) subcutaneous pen 40 unit subcut BREAKFAST DIABETES 08/27/23 insulin aspart U-100 100 unit/mL (3 mL) subcutaneous pen See Protocol subcut TIDCM DIABETES 08/27/23 ferrous sulfate 325 mg (65 mg iron) tablet 325 mg PO TID 11/22/23 sertraline 25 mg tablet 25 mg PO DAILY 11/22/23 cephalexin 250 mg capsule 250 mg PO TID #15 caps 11/24/23 menthol 0.44 %-zinc oxide 20.6 % topical ointment (Calmoseptine) 1 applic topical BID #0 grams 11/24/23 nystatin 100,000 unit/gram topical powder (Nyamyc) 1 applic topical BID #0 grams 11/24/23 Hospital Course Operations None Procedures None Summary of Care Provided Minutes Spent on Discharge: 33 Hospital Course: This 63-year-old white female was seen in the emergency room at [facility] with a complaint of malaise and fever. She was a resident at [facility] and was sent in for evaluation. Patient was hypoxic per EMS and placed on 3 L nasal cannula, workup in the emergency room included a CBC which was remarkable for an elevated white blood cell count at 16.6, creatinine was elevated at 2.55 and BUN was elevated at 48. Patient's beta natruretic peptide was elevated at 174, urinalysis showed more than 100 white blood cells and +3 bacteria, there are also 10-25 RBCs seen. Patient was admitted for hypoxia and acute cystitis, she was placed on IV antibiotics and seen by PT and OT. Patient told this examiner she actually had oxygen at [facility] but was not wearing it [facility] Urine culture grew out pansensitive E. coli, patient consented to short-term [facility] placement for inpatient rehab services due to generalized weakness. On 11/25/2023, patient was seen and examined:alert and no apparent distress Constitutional Narrative: Patient is morbidly obese HEENT head/scalp atraumatic and moist oral mucous membranes Eyes PERRL, EOMs intact bilaterally and conjunctivae normal Neck supple and no JVD Resp normal respiratory effort, no retractions and no use of accessory muscles Cardio regular rate, regular rhythm, S1 normal heart sound and S2 normal heart sound GI normal to inspection, nondistended, normoactive bowel sounds and soft to palpation GI Narrative: Patient is morbidly obese Extremity no clubbing, cyanosis or edema Neuro CN's II-XII intact bilaterally, moves all extremities, no focal motor deficits and no sensory deficits noted Sensorium / Orientation: awake, alert, oriented to person and oriented to place Psych affect normal Patient appears stable for transfer to [facility] for inpatient rehab services on 11/25/2023 Weight / BMI Weight Weight: 120.565 kg Body Mass Index (BMI) 53.6 ABG / Lab / Microbiology Data 11/24/23 05:24 11/24/23 05:21 Laboratory: Laboratory Results - last 24 hr 11/24/23 10:55: POC Glucose 151 H 11/24/23 16:01: POC Glucose 80 11/24/23 21:11: POC Glucose 104 11/25/23 07:47: POC Glucose 139 H Microbiology: Microbiology 11/22/23 15:05 Blood Culture (Wb) - Right Hand Blood Culture - Final Escherichia coli 11/22/23 15:45 Urine, Catheterized Urine Culture - Final Escherichia coli Radiography Diagnostic Testing: Radiology Impression Echocardiogram 11/22/23 17:13 Interpretation Summary Normal LV size. Left ventricular systolic function is normal. Stage 1 diastolic dysfunction. The left ventricular ejection fraction is 55 %. Contrast injection was performed. Ordering Physician: Facundo Corral Performed By: Mindi Rodriguez RDCS Meaningful Use Info Meaningful Use Meaningful Use Diagnoses (Choose all that apply): None applicable Ischemic Stroke Statin Dosing Therapy Reference: STATIN DOSE THERAPY REFERENCE: * Patients > 75 years receive moderate or high dose statin therapy. * Patients 75 years or YOUNGER should receive HIGH intensity statin dose unless contraindicated. You will be required to document reason for non-treatment if statin daily dose does not meet guidelines. HIGH DOSE STATIN THERAPY DAILY Atorvastatin > than or = to 40 mg Rosuvastatin > than or = to 20 mg Amlodipine + Atorvastatin > than or = to 2.5/40 mg Ezetimibe + Simvastatin 10/80 mg Simvastatin 80mg Discharge Plan Admission Admit Date/Time: 11/22/23 16:40 Primary Reason for Your Visit: Acute cystitis Attending Provider: Daniel Hernandez Primary Care Provider: Care Physician,No Primary Consulting Providers: Facundo Corral Discharge Orders/Prescriptions Prescriptions: New cephalexin 250 mg Capsule 250 mg PO TID Qty: 15 0RF Rx Instructions: Give for 15 doses then discontinue menthol-zinc oxide [Calmoseptine] 0.44-20.6 % Ointment 1 applic topical BID Qty: 0 0RF Protocol: *Topical Application Instructions APPLICATION INSTRUCTIONS: apply to buttocks nystatin [Nyamyc] 100,000 unit/gram Powder 1 applic topical BID Qty: 0 0RF Protocol: *Topical Application Instructions APPLICATION INSTRUCTIONS: apply to abdominal/breast folds and groin Continued simvastatin 20 mg tablet 20 mg PO QHS gabapentin 300 mg capsule 300 mg PO DAILY ziprasidone HCl 80 mg capsule 80 mg PO DAILY Rx Instructions: TAKE ONE CAPSULE BY MOUTH ONCE DAILY WITH FOOD. MUST EAT 500 CALORIES FOR ABSORPTION. doxepin 10 mg capsule 10 mg PO QHS omeprazole 20 mg capsule,delayed release(DR/EC) 20 mg PO DAILY (DME) FreeStyle Jolie 2 [place] Misc See Rx Instructions .Route Qty: 1 0RF Rx Instructions: As directed divalproex 125 mg tablet,delayed release (DR/EC) 375 mg PO BID aspirin 81 mg tablet,delayed release (DR/EC) 81 mg PO DAILY Qty: 90 3RF Gemtesa 75 mg tablet 75 mg PO DAILY insulin aspart U-100 100 unit/mL (3 mL) insulin pen 35 unit subcut LUNCH insulin aspart U-100 100 unit/mL (3 mL) insulin pen 37 unit subcut DINNER insulin glargine [Lantus Solostar U-100 Insulin] 100 unit/mL (3 mL) insulin pen 50 unit subcut QHS fesoterodine [Toviaz] 8 mg tablet extended release 24 hr 8 mg PO DAILY metoprolol succinate 100 mg tablet extended release 24 hr 100 mg PO DAILY Qty: 90 3RF acetaminophen 325 mg tablet 650 mg PO BID PRN (Reason: PAIN/FEVER) sertraline 100 mg tablet 100 mg PO QHS Patient Comments: OF 08/27/23 PT ONLY TAKES ONE 100MG TABLET BY MOUTH ONCE DAILY AT BEDTIME. olanzapine 10 mg tablet 10 mg PO QHS ergocalciferol (vitamin D2) [Drisdol] 1,250 mcg (50,000 unit) Capsule 1,250 mcg PO MOTH furosemide 20 mg tablet 20 mg PO DAILY Qty: 30 1RF docusate sodium [Colace] 100 mg capsule 100 mg PO BID polyethylene glycol 3350 [Miralax] 17 gram/dose powder 17 g PO DAILY promethazine 25 mg tablet 25 mg PO TID PRN (Reason: NAUSEA/VOMITING ) Qty: 10 0RF Jardiance 25 mg tablet 25 mg PO DAILY insulin aspart U-100 100 unit/mL (3 mL) insulin pen 40 unit subcut BREAKFAST insulin aspart U-100 100 unit/mL (3 mL) insulin pen See Protocol subcut TIDCM Protocol: 6. Sliding Scale Insulin Custom Condition: mg/dl range Dose/Route: Number of Units Condition: 180-220 Dose/Route: 3 Condition: 221-260 Dose/Route: 5 Condition: 261> Dose/Route: 8 Protocol Text: Custom Sliding Scale albuterol sulfate 2.5 mg /3 mL (0.083 %) solution for nebulization 2.5 mg inhalation Q4H PRN (Reason: SHORTNESS OF BREATH ) cetirizine 5 mg tablet 5 mg PO DAILY PRN (Reason: ALLERGIES ) hydroxyzine pamoate 25 mg capsule 25 mg PO TID PRN (Reason: ANXIETY ) albuterol sulfate [ProAir HFA] 90 mcg/actuation HFA aerosol inhaler 2 puff inhalation Q4H PRN (Reason: SHORTNESS OF BREATH/WHEEZING ) ferrous sulfate 325 mg (65 mg iron) tablet 325 mg PO TID sertraline 25 mg tablet 25 mg PO DAILY amlodipine 5 mg tablet 5 mg PO DAILY Qty: 30 6RF (DME) FreeStyle Jolie 2 Sensor Kit See Rx Instructions .Route Qty: 2 5RF Rx Instructions: 1 sensor q 14 days Referrals / Follow Up: Care Physician,No Primary [Primary Care Provider] - Disposition Disposition (needs filled in before D/C Order can be placed): [facility] Facility Charges/Coding Visit Charges Inpatient E&M: 33843 Disch Hosp >30min
--- NOTE | 2023-11-25 10:39 | PHA.DC.MR.R ---
Pharmacy PR Med Reconciliation Pharmacy Service has performed discharge medication reconciliation for this patient. The patient's discharge medication list was reviewed for discrepancies and discrepancies were resolved. Medications at Discharge Home Medications doxepin 10 mg capsule 10 mg PO QHS DEPRESSION 05/29/22 flash glucose scanning reader (FreeStyle Jolie 2 [place]) #1 ea 05/29/22 gabapentin 300 mg capsule 300 mg PO DAILY NEUROPATHY 05/29/22 omeprazole 20 mg capsule,delayed release 20 mg PO DAILY GERD 05/29/22 simvastatin 20 mg tablet 20 mg PO QHS CHOLESTEROL 05/29/22 ziprasidone HCl 80 mg capsule 80 mg PO DAILY BIPOLAR DISORDER 05/29/22 amlodipine 5 mg tablet 5 mg PO DAILY BLOOD PRESSURE #30 tabs 07/15/22 acetaminophen 325 mg tablet 650 mg PO BID PRN PAIN/FEVER 08/28/22 ergocalciferol (vitamin D2) 1,250 mcg (50,000 unit) capsule (Drisdol) 1,250 mcg PO MOTH SUPPLEMENT 08/28/22 olanzapine 10 mg tablet 10 mg PO QHS BIPOLAR DISORDER 08/28/22 sertraline 100 mg tablet 100 mg PO QHS DEPRESSION 08/28/22 furosemide 20 mg tablet 20 mg PO DAILY EDEMA #30 tabs 08/31/22 flash glucose sensor ([employer] Jolie 2 Sensor kit) #2 ea 09/23/22 docusate sodium 100 mg capsule (Colace) 100 mg PO BID CONSTIPATION 12/06/22 polyethylene glycol 3350 17 gram/dose oral powder (Miralax) 17 g PO DAILY CONSTIPATION 12/06/22 aspirin 81 mg tablet,delayed release 81 mg PO DAILY HEART HEALTH #90 tabs 12/18/22 promethazine 25 mg tablet 25 mg PO TID PRN NAUSEA/VOMITING #10 tabs 01/20/23 divalproex 125 mg tablet,delayed release 375 mg PO BID BIPOLAR DISORDER 07/07/23 fesoterodine 8 mg tablet,extended release 24 hr (Toviaz) 8 mg PO DAILY OVERACTIVE BLADDER 07/07/23 insulin aspart U-100 100 unit/mL (3 mL) subcutaneous pen 35 unit subcut LUNCH DIABETES 07/07/23 insulin aspart U-100 100 unit/mL (3 mL) subcutaneous pen 37 unit subcut DINNER DIABETES 07/07/23 insulin glargine 100 unit/mL (3 mL) subcutaneous pen (Lantus Solostar U-100 Insulin) 50 unit subcut QHS 07/07/23 metoprolol succinate 100 mg tablet,extended release 24 hr 100 mg PO DAILY BLOOD PRESSURE #90 tabs 07/07/23 vibegron 75 mg tablet (Gemtesa) 75 mg PO DAILY OVERACTIVE BLADDER 07/07/23 albuterol sulfate 2.5 mg/3 mL (0.083 %) solution for nebulization 2.5 mg inhalation Q4H PRN SHORTNESS OF BREATH 08/27/23 albuterol sulfate 90 mcg/actuation aerosol inhaler (ProAir HFA) 2 puff inhalation Q4H PRN SHORTNESS OF BREATH/WHEEZING 08/27/23 cetirizine 5 mg tablet 5 mg PO DAILY PRN ALLERGIES 08/27/23 empagliflozin 25 mg tablet (Jardiance) 25 mg PO DAILY DIABETES 08/27/23 hydroxyzine pamoate 25 mg capsule 25 mg PO TID PRN ANXIETY 08/27/23 insulin aspart U-100 100 unit/mL (3 mL) subcutaneous pen 40 unit subcut BREAKFAST DIABETES 08/27/23 insulin aspart U-100 100 unit/mL (3 mL) subcutaneous pen See Protocol subcut TIDCM DIABETES 08/27/23 ferrous sulfate 325 mg (65 mg iron) tablet 325 mg PO TID 11/22/23 sertraline 25 mg tablet 25 mg PO DAILY 11/22/23 cephalexin 250 mg capsule 250 mg PO TID #15 caps 11/24/23 menthol 0.44 %-zinc oxide 20.6 % topical ointment (Calmoseptine) 1 applic topical BID #0 grams 11/24/23 nystatin 100,000 unit/gram topical powder (Nyamyc) 1 applic topical BID #0 grams 11/24/23
--- NOTE | 2023-11-25 11:08 | CASEMGMT ---
Discharge Planning Discharge orders, signed med list, loc results, and transport time sent to [facility] via [facility]. Physicians will transport patient by wheelchair at 12p. Nursing, SW, and patient updated. Patient requested that her sister not be called. Grace Sanchez DC Planning Asst.
[2023-11-25 11:13] VITALS: BP 137/77; PULSE 85; RESP 24; TEMP 36.7; O2SAT 96
--- NOTE | 2023-11-25 11:25 | NURSING ---
1125-Attempted to call report to [facility] at this time. Tried all available nursing station extensions with no answer. 1157-Attempted to call report, again to [facility]. Dialed 0 to get power chisel operator as directed and allowed phone to ring several times with no answer.
--- NOTE | 2023-11-25 11:27 | CASEMGMT ---
Social Work PASRR screen is completed as of 11.24.2023, and received Intermediate Level of Care approval from [facility]. Copies of PASRR and LOC results have been placed in the medical record, as well as a copy to the jail. Patient is slated for discharge today. Met with patient and updated that patient is going to the jail side rather than the assisted living, based on recommendations by doctor and the Operations Chief at the assisted living. Patient reports agreement to plan. Discharge records management assistant arranging transport and further notifications to facility. No other services requested or indicated. Plan: [facility], intermediate level of care under Medicaid, PASRR completed. -GISELA Moe
[2023-11-25 11:33] LABS: Bedside Glucose 178 mg/dL (74-106)
== END 2023-11-25 12:05 | disposition intermediate care facility (04) | DRG 463 ==
LOC: ED 15:01 → PCU 17:07
PROVIDERS: Physician Assistant; Admitting Provider Internal Medicine; Emergency Provider Emergency Medicine; Visit Provider Internal Medicine
DX: N30.00 Acute cystitis without hematuria (principal); I42.9 Cardiomyopathy, unspecified; J96.11 Chronic respiratory failure with hypoxia; Z68.43 Body mass index [BMI] 50.0-59.9, adult; E11.22 Type 2 diabetes mellitus with diabetic chronic kidney disease; B96.20 Unspecified Escherichia coli [E. coli] as the cause of diseases classified elsewhere; N18.4 Chronic kidney disease, stage 4 (severe); E11.65 Type 2 diabetes mellitus with hyperglycemia; Z79.4 Long term (current) use of insulin; E66.01 Morbid (severe) obesity due to excess calories; I12.9 Hypertensive chronic kidney disease with stage 1 through stage 4 chronic kidney disease, or unspecified chronic kidney disease; F32.A Depression, unspecified; I25.10 Atherosclerotic heart disease of native coronary artery without angina pectoris; E78.5 Hyperlipidemia, unspecified; G47.30 Sleep apnea, unspecified; F91.8 Other conduct disorders; R53.81 Other malaise; N32.81 Overactive bladder; Z99.81 Dependence on supplemental oxygen; Z79.82 Long term (current) use of aspirin; Z79.899 Other long term (current) drug therapy; Z87.891 Personal history of nicotine dependence
CPT/HCPCS: 36415; 36600; 71045; 76770; 80048; 80053; 80076; 81001; 82803; 82962; 83605; 83735; 83880; 84100; 84443; 85025; 85610; 87040; 87077; 87086; 87088; 87186; 93306; 94002; 94003; 94762; 97162; 97166; 97530; 97535; 99284; P9612; Q9957; A4216; C8929

== ENCOUNTER 2023-11-25 12:40 | Emergency (ER) | payer MEDICAID, SELFPAY ==
[2023-11-25 12:41] VITALS: BP 126/88; PULSE 77; RESP 18; TEMP 37.2; O2SAT 90; BMI 56.0
[2023-11-25 12:48] VITALS: BP 139/70; PULSE 79; RESP 19; TEMP 37.2; O2SAT 90
--- NOTE | 2023-11-25 13:05 | EKG12_ITS ---
Test Reason : IRREGULAR Blood Pressure : / mmHG Vent. Rate : 080 BPM Atrial Rate : 080 BPM P-R Int : 148 ms QRS Dur : 080 ms QT Int : 382 ms P-R-T Axes : 056 -01 033 degrees QTc Int : 440 ms Sinus rhythm with occasional Premature ventricular complexes Otherwise normal ECG Confirmed by EDITH NAVA, ANTHONY ([id number]), film editor CHELSEY TYSON ([id number]) on 11/27/2023 8:20:58 AM Referred By: JOHAN/SHANTI Confirmed By:ANTHONY SHARMA MD
[2023-11-25 13:27] LABS: Absolute Lymphocyte Count 2.34 X10^3/uL (0.83-4.51); Basophil# 0.05 X10^3/uL; Basophil% 0.7 % (0-1); Eosinophil# 0.11 X10^3/uL; Eosinophils% 1.5 % (0-5); Hematocrit 42.3 % (37-47); Hemoglobin 13.1 g/dL (12.0-15.0); Lymphocyte # 2.34 X10^3/ul (0.83-4.51); Mean Corpuscular Hgb 27.5 pg (27.0-32.0); Mean Corpuscular Volume 88.7 fL (81-99); Monocyte# 0.75 X10^3/uL; Monocyte% 10.3 % (0-10); NRBC Flagged by Analyzer 0 % (0-5); Neutrophil # 3.99 X10^3/uL (2.7-7.7); Neutrophil % 54.5 % (47-70); Platelet Count 113 K/mm3 (150-450); RBC Distribution Width CV 16.2 % (11.6-14.6); RBC Distribution Width SD 53.1 fl (35.1-43.9); Red Blood Count 4.77 M/mm3 (4.2-5.4); White Blood Count 7.3 K/mm3 (4.4-11.0)
[2023-11-25 13:41] LABS: Anion Gap 5 (5-15); BUN 64 mg/dL (7-18); BUN/Creat Ratio 24.8 RATIO (10-20); Chloride 103 mmol/L (98-107); Creatinine, Serum 2.58 mg/dL (0.55-1.02); EST Glomerular Filtration Rate 20 mL/min (>60); Est Glom Filt Rate - Afr Amer 24 mL/min (>60); Estimated Creatinine Clearance 28.07 ml/min; Glucose 218 mg/dL (74-106); Potassium 4.7 mmol/L (3.5-5.1); Sodium Level 137 mmol/L (136-145)
[2023-11-25 13:48] VITALS: BP 141/67; PULSE 75; RESP 20; TEMP 36.8; O2SAT 99
--- NOTE | 2023-11-25 13:59 | EX.ED.DYSGE1 ---
HPI History of Present Illness Chief Complaint: Alt LOC Detail of Chief Complaint: Bradycardia, altered mental status. Informant: patient and EMS Onset/Context/Timing Onset: Hours Context: Sudden Onset Timing: - (Patient states she has no complaints. Patient complains of no symptoms. Decreased level consciousness, bradycardia monitor strip revealed patient was in bigeminy and only every other pulse was palpated.) Quality: Not applicable Location: Was in an ambulance. Transport from hospital to nursing facility. Current Severity: Gone Maximum Severity: Nothing per patient. Worsened by: Unknown Relieved by: Not applicable Associated Symptoms Associated Symptoms: Per patient none Narrative Narrative: patient was discharged 1 hour prior to transport. Admission note was reviewed as well as transfer note authored by Dr. Beka Caldera last evening. There is no blood work obtained today. Patient at this time has no complaints. She states she feels normal. She is not certain why she is in the emergency department. Patient was in bigeminy and had a pulse of probably 30-40. Patient denies headache, visual, ocular auditory symptoms. Patient denies ringing or ears. She denies chest pain, shortness of breath. She denies abdominal pain, nausea, vomiting or diarrhea. She denies urologic symptoms. One of the reasons that she was admitted was for cystitis. Prior similar symptoms: No Recent Illness/Hospitalization: Yes PFSH [facility] Medical History CKD (chronic kidney disease) stage 4, GFR 15-29 ml/min Abnormal cardiovascular stress test Parainfluenza Anxiety Depression Diabetes Chronic pain Kidney stones Hepatitis Former smoker Acute on chronic renal insufficiency Hypoxia Hyperkalemia Cardiomyopathy Abnormal echocardiogram Right knee DJD Right knee pain Hepatitis C Type 2 diabetes mellitus Essential hypertension Acute non-ST elevation myocardial infarction (NSTEMI) CKD (chronic kidney disease) stage 3, GFR 30-59 ml/min Obesity Hyperlipidemia Hypertension Microalbuminuria History of mental problems Tonsillectomy planned Home Medications ?Medication ?Instructions ?Recorded ?Last Taken ?Type doxepin 10 mg capsule 10 mg PO QHS DEPRESSION 05/29/22 08/26/23 History flash glucose scanning reader #1 ea 05/29/22 Unknown Rx (Izzy Money Jolie 2 Kimper) gabapentin 300 mg capsule 300 mg PO DAILY NEUROPATHY 05/29/22 08/26/23 History omeprazole 20 mg capsule,delayed 20 mg PO DAILY GERD 05/29/22 08/26/23 History release simvastatin 20 mg tablet 20 mg PO QHS CHOLESTEROL 05/29/22 08/26/23 History ziprasidone HCl 80 mg capsule 80 mg PO DAILY BIPOLAR DISORDER 05/29/22 08/26/23 History amlodipine 5 mg tablet 5 mg PO DAILY BLOOD PRESSURE #30 07/15/22 08/26/23 Rx tabs acetaminophen 325 mg tablet 650 mg PO BID PRN PAIN/FEVER 08/28/22 08/26/23 History ergocalciferol (vitamin D2) 1,250 1,250 mcg PO MOTH SUPPLEMENT 08/28/22 08/25/23 History mcg (50,000 unit) capsule (Drisdol) olanzapine 10 mg tablet 10 mg PO QHS BIPOLAR DISORDER 08/28/22 08/26/23 History sertraline 100 mg tablet 100 mg PO QHS DEPRESSION 08/28/22 08/26/23 History furosemide 20 mg tablet 20 mg PO DAILY EDEMA #30 tabs 08/31/22 08/26/23 Rx flash glucose sensor (FreeStyle #2 ea 09/23/22 Unknown Rx Jolie 2 Sensor kit) docusate sodium 100 mg capsule 100 mg PO BID CONSTIPATION 12/06/22 08/26/23 History (Colace) polyethylene glycol 3350 17 17 g PO DAILY CONSTIPATION 12/06/22 08/26/23 History gram/dose oral powder (Miralax) aspirin 81 mg tablet,delayed 81 mg PO DAILY HEART HEALTH #90 12/18/22 08/26/23 Rx release tabs promethazine 25 mg tablet 25 mg PO TID PRN NAUSEA/VOMITING 01/20/23 Unknown Rx #10 tabs divalproex 125 mg tablet,delayed 375 mg PO BID BIPOLAR DISORDER 07/07/23 08/26/23 History release fesoterodine 8 mg tablet,extended 8 mg PO DAILY OVERACTIVE BLADDER 07/07/23 08/26/23 History release 24 hr (Toviaz) insulin aspart U-100 100 unit/mL 35 unit subcut LUNCH DIABETES 07/07/23 08/26/23 History (3 mL) subcutaneous pen insulin aspart U-100 100 unit/mL 37 unit subcut DINNER DIABETES 07/07/23 08/26/23 History (3 mL) subcutaneous pen insulin glargine 100 unit/mL (3 50 unit subcut QHS 07/07/23 08/26/23 History mL) subcutaneous pen (Lantus Solostar U-100 Insulin) metoprolol succinate 100 mg 100 mg PO DAILY BLOOD PRESSURE 07/07/23 08/26/23 Rx tablet,extended release 24 hr #90 tabs vibegron 75 mg tablet (Gemtesa) 75 mg PO DAILY OVERACTIVE BLADDER 07/07/23 08/26/23 History albuterol sulfate 2.5 mg/3 mL 2.5 mg inhalation Q4H PRN 08/27/23 Unknown History (0.083 %) solution for nebulization SHORTNESS OF BREATH albuterol sulfate 90 mcg/actuation 2 puff inhalation Q4H PRN 08/27/23 Unknown History aerosol inhaler (ProAir HFA) SHORTNESS OF BREATH/WHEEZING cetirizine 5 mg tablet 5 mg PO DAILY PRN ALLERGIES 08/27/23 Unknown History empagliflozin 25 mg tablet 25 mg PO DAILY DIABETES 08/27/23 08/26/23 History (Jardiance) hydroxyzine pamoate 25 mg capsule 25 mg PO TID PRN ANXIETY 08/27/23 Unknown History insulin aspart U-100 100 unit/mL 40 unit subcut BREAKFAST DIABETES 08/27/23 08/25/23 History (3 mL) subcutaneous pen insulin aspart U-100 100 unit/mL See Protocol subcut TIDCM DIABETES 08/27/23 08/26/23 History (3 mL) subcutaneous pen ferrous sulfate 325 mg (65 mg 325 mg PO TID 11/22/23 Unknown History iron) tablet sertraline 25 mg tablet 25 mg PO DAILY 11/22/23 Unknown History cephalexin 250 mg capsule 250 mg PO TID #15 caps 11/24/23 Unknown Rx menthol 0.44 %-zinc oxide 20.6 % 1 applic topical BID #0 grams 11/24/23 Unknown Rx topical ointment (Calmoseptine) nystatin 100,000 unit/gram topical 1 applic topical BID #0 grams 11/24/23 Unknown Rx powder (Nyamyc) Allergy/AdvReac Type Severity Reaction Status Date / Time codeine Allergy Hives Verified 11/25/23 12:48 prochlorperazine edisylate Allergy Swelling Verified 11/25/23 12:48 (From Compazine) prochlorperazine maleate Allergy Swelling Verified 11/25/23 12:48 (From Compazine) Family History Other Alcohol abuse Cancer Heart disease Hypertension Mental disorder Surgical History Hx of tonsillectomy Social History housing: intermediate Smoking Status: Former smoker alcohol intake: never substance use type: does not use caffeine: Yes Type: coffee what type of physical activity do you participate in: none ROS ROS ED Constitutional Constitutional ED: Denies chills, fever(s), subjective or sweats Eyes Eyes: Denies blurry vision, change in vision or diplopia ENT ENT ED: Denies ear pain, rhinorrhea or sore throat Cardiovascular Cardiovascular: Denies chest pain, orthopnea or palpitations Respiratory/Chest Respiratory/Chest: Denies cough, dyspnea, dyspnea on exertion or orthopnea Gastrointestinal Gastrointestinal: Denies abdominal pain, nausea or vomiting Genitourinary Genitourinary ED: Denies dysuria, hematuria or urinary frequency Musculoskeletal Musculoskeletal: Denies arthralgias, back pain, myalgias or neck pain Integumentary Denies rash Neurologic Neurologic: Reports weakness; Denies headache(s) Hematologic/Lymphatic Hematologic/Lymphatic: Reports systems reviewed and no addt'l complaints, except as documented EXAM Physical Exam Const Vital Signs: 11/25/23 12:41 11/25/23 12:48 11/25/23 13:48 Temperature 99 F 99 F 98.2 F Temperature Source Oral Oral Temporal Pulse Rate 77 79 75 Respiratory Rate 18 19 H 20 H Blood Pressure 126/88 H 139/70 H 141/67 H Blood Pressure Mean 100 93 91 Pulse Ox 90 90 99 Oxygen Delivery Method Nasal Cannula Nasal Cannula Nasal Cannula Oxygen Flow Rate (L/min) 3 4 3 11/25/23 14:00 Temperature 98.4 F Temperature Source Temporal Pulse Rate 76 Respiratory Rate 18 Blood Pressure 140/71 H Blood Pressure Mean 94 Pulse Ox 98 Oxygen Delivery Method Nasal Cannula Oxygen Flow Rate (L/min) 3 Positive well nourished and well developed Constitutional Narrative: BMI is 56.1. Patient is alert and oriented. Patient's vital signs are remarkable for slightly elevated blood pressure. Patient is on chronic oxygen. General Appearance ED: well developed, NAD and pallor HEENT Reports moist mucous membranes HEENT Narrative: Head is atraumatic normocephalic. Ears normal. Nares patent. Posterior pharynx is normal. Eyes PERRL and EOMs intact bilaterally Eyes Narrative: There is no nystagmus. General Eye ED: Negative for pale conjunctiva or scleral icterus Neck no lymphadenopathy, supple and no JVD Chest Wall inspection of chest normal and palpation of chest normal Resp normal respiratory effort and clear to auscultation bilaterally Cardio regular rate, regular rhythm, S1 normal heart sound, S2 normal heart sound and no murmurs GI normal to inspection, nondistended, normoactive bowel sounds, non-tender, non-distended and no masses; Negative for hepatosplenomegaly GI Narrative: Exam limited due to body habitus. Back/Spine no CVA tenderness Extremity General Extremety ED: Yes edema; Negative for tenderness General Extremity: edema Neuro oriented x3 and CN's II-XII intact bilaterally Neuro Narrative: Moves all extremities. Sensorium / Orientation: alert Skin no rashes or lesions noted, no wounds and skin turgor normal General Skin Exam: pallor; Negative for jaundice MDM MDM MDM Narrative Medical decision making narrative: In light of patient's BMI and somnolence reported by EMS to obtain ABG to rule out CO2 retention. Also will obtain CBC to assess for anemia since she appears pale and white count. Electrolyte panel to assess renal function since she has history of kidney disease and the fact that she is diabetic. Lab Data Attestation: I reviewed the patient's lab results. Lab results narrative: CBC is unremarkable. Basic metabolic panel does not elevated BUN/creatinine of 64 and 2.58. Glucose is elevated at 218 with a normal CO2 and anion gap.BUN and creatinine are at baseline. Labs: Laboratory Results - last 24 hr 11/25/23 13:20 WBC 7.3 RBC 4.77 Hgb 13.1 Hct 42.3 MCV 88.7 MCH 27.5 MCHC 31.0 L RDW Std Deviation 53.1 H RDW Coeff of Doris 16.2 H Plt Count 113 L MPV 9.0 Immature Gran % (Auto) 1.000 H Neut % (Auto) 54.5 Lymph % (Auto) 32.0 Mccracken % (Auto) 10.3 H Eos % (Auto) 1.5 Baso % (Auto) 0.7 Absolute Neuts (auto) 4.0 Absolute Lymphs (auto) 2.34 Nucleated RBC % 0 Sodium 137 Potassium 4.7 Chloride 103 Carbon Dioxide 29.0 Anion Gap 5 BUN 64 H Creatinine 2.58 H Estim Creat Clear Calc 28.07 Est GFR (MDRD) Af Amer 24 L Est GFR (MDRD) Non-Af 20 L BUN/Creatinine Ratio 24.8 H Glucose 218 H Calcium 9.0 ABG Data Attestation: I personally reviewed and interpreted this ABG as follows: Interpretation: ABG reveals a mild acidosis with pH of 7.31. pCO2 is elevated at 53.1. Patient has evidence of acute on chronic respiratory failure with hypoxia and hypercapnia. Patient apparently has not followed up with sleep studies and was told that she needs a CPAP/BiPAP machine. Again she never followed up. Will make note on intermediate paperwork that she needs a sleep study and is reason that patient had periods of somnolence during her most recent hospitalization. Discussed case with respiratory therapist to oversaw her care on the floor. ABG results: ABG 11/25/23 14:45 Specimen Type ART Sample Site L Radial pH 7.31 L Bicarbonate Actual 26.8 H Total CO2 28 Base Excess 1 O2 Saturation 94 L O2 % 3.0 ABG pCO2 53.1 H ABG pO2 79 Vickey Test Positive O2 Delivery Device Cannula Vent Mode Not entered EKG Initial EKG: Attestation: I personally reviewed and interpreted this EKG as follows: Interpretation: Sinus Rhythm (Rate is 80. There is 1 premature ventricular beat noted. OH intervals 148 ms. QRS duration 80 ms. QT duration 382 ms. [place] is normal.) Discharge Plan Triage Chief Complaint: Alt LOC ED Provider: Lam Muñoz Dx/Rx/DC Orders Clinical Impression: Acute on chronic respiratory failure with hypoxia and hypercapnia, Essential hypertension, Type 2 diabetes mellitus, Hyperlipidemia, Ventricular bigeminy seen on panel monitor, Body mass index (BMI) greater than 50 Instructions: ED About Arrhythmias, ED Sleep Apnea, Obstructive Prescriptions: No Action simvastatin 20 mg tablet 20 mg PO QHS gabapentin 300 mg capsule 300 mg PO DAILY ziprasidone HCl 80 mg capsule 80 mg PO DAILY Rx Instructions: TAKE ONE CAPSULE BY MOUTH ONCE DAILY WITH FOOD. MUST EAT 500 CALORIES FOR ABSORPTION. doxepin 10 mg capsule 10 mg PO QHS omeprazole 20 mg capsule,delayed release(DR/EC) 20 mg PO DAILY (DME) FreeStyle Jolie 2 Kimper Misc See Rx Instructions .Route Qty: 1 0RF Rx Instructions: As directed divalproex 125 mg tablet,delayed release (DR/EC) 375 mg PO BID aspirin 81 mg tablet,delayed release (DR/EC) 81 mg PO DAILY Qty: 90 3RF Gemtesa 75 mg tablet 75 mg PO DAILY insulin aspart U-100 100 unit/mL (3 mL) insulin pen 35 unit subcut LUNCH insulin aspart U-100 100 unit/mL (3 mL) insulin pen 37 unit subcut DINNER insulin glargine [Lantus Solostar U-100 Insulin] 100 unit/mL (3 mL) insulin pen 50 unit subcut QHS fesoterodine [Toviaz] 8 mg tablet extended release 24 hr 8 mg PO DAILY metoprolol succinate 100 mg tablet extended release 24 hr 100 mg PO DAILY Qty: 90 3RF acetaminophen 325 mg tablet 650 mg PO BID PRN (Reason: PAIN/FEVER) sertraline 100 mg tablet 100 mg PO QHS Patient Comments: OF 08/27/23 PT ONLY TAKES ONE 100MG TABLET BY MOUTH ONCE DAILY AT BEDTIME. olanzapine 10 mg tablet 10 mg PO QHS ergocalciferol (vitamin D2) [Drisdol] 1,250 mcg (50,000 unit) Capsule 1,250 mcg PO MOTH furosemide 20 mg tablet 20 mg PO DAILY Qty: 30 1RF docusate sodium [Colace] 100 mg capsule 100 mg PO BID polyethylene glycol 3350 [Miralax] 17 gram/dose powder 17 g PO DAILY promethazine 25 mg tablet 25 mg PO TID PRN (Reason: NAUSEA/VOMITING ) Qty: 10 0RF Jardiance 25 mg tablet 25 mg PO DAILY insulin aspart U-100 100 unit/mL (3 mL) insulin pen 40 unit subcut BREAKFAST insulin aspart U-100 100 unit/mL (3 mL) insulin pen See Protocol subcut TIDCM Protocol: 6. Sliding Scale Insulin Custom Condition: mg/dl range Dose/Route: Number of Units Condition: 180-220 Dose/Route: 3 Condition: 221-260 Dose/Route: 5 Condition: 261> Dose/Route: 8 Protocol Text: Custom Sliding Scale albuterol sulfate 2.5 mg /3 mL (0.083 %) solution for nebulization 2.5 mg inhalation Q4H PRN (Reason: SHORTNESS OF BREATH ) cetirizine 5 mg tablet 5 mg PO DAILY PRN (Reason: ALLERGIES ) hydroxyzine pamoate 25 mg capsule 25 mg PO TID PRN (Reason: ANXIETY ) albuterol sulfate [ProAir HFA] 90 mcg/actuation HFA aerosol inhaler 2 puff inhalation Q4H PRN (Reason: SHORTNESS OF BREATH/WHEEZING ) ferrous sulfate 325 mg (65 mg iron) tablet 325 mg PO TID sertraline 25 mg tablet 25 mg PO DAILY cephalexin 250 mg Capsule 250 mg PO TID Qty: 15 0RF Rx Instructions: Give for 15 doses then discontinue menthol-zinc oxide [Calmoseptine] 0.44-20.6 % Ointment 1 applic topical BID Qty: 0 0RF Protocol: *Topical Application Instructions APPLICATION INSTRUCTIONS: apply to buttocks nystatin [Nyamyc] 100,000 unit/gram Powder 1 applic topical BID Qty: 0 0RF Protocol: *Topical Application Instructions APPLICATION INSTRUCTIONS: apply to abdominal/breast folds and groin amlodipine 5 mg tablet 5 mg PO DAILY Qty: 30 6RF (DME) FreeStyle Jolie 2 Sensor Kit See Rx Instructions .Route Qty: 2 5RF Rx Instructions: 1 sensor q 14 days Primary Care Provider: Care Physician,No Primary Referrals: Care Physician,No Primary [Primary Care Provider] - Doctor,Your [Non-Staff] - As soon as possible Activity Restrictions/Additional Instructions: Patient needs sleep study if not done recently and most likely will need CPAP/BiPAP. This would explain her periods of drowsiness. Print Language: [place] Island[place] Disposition Disposition: Home, Self Care
[2023-11-25 14:00] VITALS: BP 140/71; PULSE 76; RESP 18; TEMP 36.9; O2SAT 98
[2023-11-25 14:49] LABS: Allen Test Positive; Base Excess 1 mmol/L (-2 to +2); Bicarbonate 26.8 mmol/L (22-26); Blood Gas Specimen Type ART; Mode Not entered; O2 Delivery Device Cannula; PO2 79 mmHG (75-100); SITE L Radial; SO2 94 % (95-99); Total Carbon Dioxide 28 mmol/L; pCO2 53.1 mmHg (35-45); pH 7.31 (7.35-7.45)
--- NOTE | 2023-11-25 15:18 | NURSING ---
CALLED [facility], ETA IS 1 HR
--- NOTE | 2023-11-25 15:25 | NURSING ---
[facility] ETA IS 1 HR
[2023-11-25 16:00] VITALS: PULSE 72; RESP 18; O2SAT 92
[2023-11-25 16:04] VITALS: BP 114/68; PULSE 74; RESP 19; TEMP 37.2; O2SAT 92
--- NOTE | 2023-11-25 16:43 | ED.RN ---
This RN called report to Martin Hurley.
== END 2023-11-25 16:51 | disposition home or self-care (01) ==
PROVIDERS: Emergency Provider Emergency Medicine; Visit Provider Emergency Medicine
DX: J96.22 Acute and chronic respiratory failure with hypercapnia (principal); N18.4 Chronic kidney disease, stage 4 (severe); J96.21 Acute and chronic respiratory failure with hypoxia; E11.22 Type 2 diabetes mellitus with diabetic chronic kidney disease; I12.9 Hypertensive chronic kidney disease with stage 1 through stage 4 chronic kidney disease, or unspecified chronic kidney disease; R00.1 Bradycardia, unspecified; E78.5 Hyperlipidemia, unspecified; N30.90 Cystitis, unspecified without hematuria; Z87.891 Personal history of nicotine dependence; R41.82 Altered mental status, unspecified
CPT/HCPCS: 36600; 80048; 82803; 85025; 93005; 99284; 99285; A4216